=== PATIENT | female | born 1955 | race Caucasian/White ===

== ENCOUNTER 2021-12-10 10:01 | Outpatient (REF) | payer MEDICARE, MEDICAID, SELFPAY ==
[2021-12-10 11:26] LABS: Hematocrit 39.7 % (37.0-47.0); Hemoglobin 12.8 g/dl (12.0-16.0); Mean Corpuscular HGB Conc 32.2 g/dl (31.0-35.0); Mean Corpuscular Hemoglobin 28.4 pg (27.0-33.0); Mean Platelet Volume 11.5 fL (9.4-12.3); Platelet Count 197 X10*3/uL (160-400); Red Blood Count 4.51 X10*6/uL (4.20-5.50); Red Cell Distribution Width 12.3 % (11.0-16.0)
[2021-12-10 12:22] LABS: Alanine Aminotransferase 14 U/L (0-31); Albumin Level 4.1 g/dL (3.5-5.0); Alkaline Phosphatase 73 U/L (39-117); Anion Gap 14 (12-20); Aspartate Amino Transferase 17 U/L (5-31); Bilirubin Total 0.4 mg/dL (0.0-1.0); Blood Urea Nitrogen 17 mg/dL (9-16); Carbon Dioxide 30 mmol/L (22-29); Chloride 99 mmol/L (96-108); Cholesterol 281 mg/dL; Estimated Glomerular Filt Rate > 60; Glucose Fasting 89 mg/dL (60-99); HDL Cholesterol 62 mg/dL; LDL Cholesterol Calculated 180 mg/dl; Potassium 4.5 mmol/L (3.3-5.1); Sodium 138 mmol/L (135-145); Total Protein 6.5 g/dL (6.5-8.0); Triglycerides 197 mg/dL
[2021-12-10 12:51] LABS: TSH reflex Free T4 2.09 uIU/mL (0.32-4.0)
== END 2021-12-10 10:02 | disposition home or self-care (01) ==
LOC: HO.WFDLDS 10:01
PROVIDERS: Visit Provider Hospitalist
DX: Z00.00 Encounter for general adult medical examination without abnormal findings (principal); Z79.899 Other long term (current) drug therapy
CPT/HCPCS: 36415; 80053; 80061; 84443; 85027

== ENCOUNTER 2022-04-03 14:12 | Outpatient (REF) | payer MEDICARE, MEDICAID, SELFPAY ==
--- NOTE | ~2022-04-03 | XR_ITS ---
EXAMINATION: 1. RADIOGRAPHS PELVIS 2. RADIOGRAPHS SACRUM/COCCYX CLINICAL INFORMATION: Pain COMPARISON: Sacral x-rays May 19, 2018 TECHNIQUE: Frontal view of the pelvis and 2 views of the sacrum/coccyx were obtained. FINDINGS: Pelvic ring is intact. There is no gross fracture of the sacrum or coccyx. Sacroiliac joints are symmetric. Visualized portion of the lower lumbar spine demonstrate degenerative changes with mild anterolisthesis of L4 on L5. There are degenerative changes of both hips without fracture or dislocation. Small pelvic calcifications are likely vascular in nature. XR/XR pelvis 1-2V IMPRESSION: No gross abnormality of the pelvis or sacrum/coccyx.
--- NOTE | ~2022-04-03 | CT_ITS ---
EXAMINATION: CT CHEST SCREENING CLINICAL INFORMATION: History of nicotine dependence. 55 pack-year history of smoking. Quit smoking one year ago. COMPARISON: Chest x-ray of 05/25/2019. TECHNIQUE: Multidetector volumetric CT imaging of the chest is performed without contrast using low dose technique. Additional 2D coronal and sagittal reformatted images and axial 3D maximum intensity projection (MIP) images are generated on the CT workstation. This CT examination was performed using dose optimization techniques as appropriate, variously including the following: *Automated exposure control *Adjustment of mA and/or kV according to patient size (this includes techniques or standardized protocols for targeted exams where dose is matched to indication/reason for exam; i.e. extremities or head) *Use of iterative reconstruction technique DLP: 187 mGy-cm FINDINGS: LUNGS: Central airways are patent. No bronchial wall thickening is appreciated. No bronchiectasis. No confluent parenchymal disease. There are mild changes of centrilobular emphysema seen within the upper lobes bilaterally. Multiple sub-4 mm densities are present. Calcified granulomas present. A few small intrafissural lymph nodes are seen. There is a 7 x 2 x 3 mm noncalcified density adjacent to the right hemidiaphragm on image [address] series #5. There are a few other tubular densities present likely representing mucus within bronchial branches. There is a 4 mm noncalcified nodule seen within the anterior aspect of the left lower lobe on image 370 of 548 in series #5. There is a 4 mm noncalcified nodule seen within the left lower lobe on image 389 of 548. There is a 4 mm noncalcified density seen within the left lower lobe on image 410 of 548. MEDIASTINUM: There is a 2 cm left thyroid nodule. Heart normal size. No pericardial effusion. There is some calcified plaque present within the left coronary artery. No thoracic aortic aneurysm. Minimal aortic arch nonobstructive calcified plaque is noted. No mediastinal or hilar lymphadenopathy identified. CORONARY ARTERY CALCIFICATION: Small amount of coronary artery calcification present. PLEURA: There is no pleural effusion. No pleural mass or thickening. AXILLA: No lymphadenopathy. UPPER ABDOMEN: Unremarkable. OSSEOUS STRUCTURES: No suspicious destructive bony lesion identified. There is multilevel degenerative disc disease. CT/CT lung screening IMPRESSION: 2 cm left thyroid nodule. Old granulomatous disease. Multiple lung densities largest of which measures 7 x 2 x 3 mm in size. ASSESSMENT: Lung-RADS category 3: Probably Benign. RECOMMENDATION: Short interval 6 month follow up low dose CT chest.
--- NOTE | ~2022-04-03 | XR_ITS ---
EXAMINATION: 1. RADIOGRAPHS PELVIS 2. RADIOGRAPHS SACRUM/COCCYX CLINICAL INFORMATION: Pain COMPARISON: Sacral x-rays May 19, 2018 TECHNIQUE: Frontal view of the pelvis and 2 views of the sacrum/coccyx were obtained. FINDINGS: Pelvic ring is intact. There is no gross fracture of the sacrum or coccyx. Sacroiliac joints are symmetric. Visualized portion of the lower lumbar spine demonstrate degenerative changes with mild anterolisthesis of L4 on L5. There are degenerative changes of both hips without fracture or dislocation. Small pelvic calcifications are likely vascular in nature. XR/XR sacrum coccyx min 2V IMPRESSION: No gross abnormality of the pelvis or sacrum/coccyx.
== END 2022-04-03 14:13 | disposition home or self-care (01) ==
LOC: HO.CT 14:12
PROVIDERS: PCP Hospitalist; Visit Provider Physician Assistant Medical
DX: Z12.2 Encounter for screening for malignant neoplasm of respiratory organs (principal); Z87.891 Personal history of nicotine dependence; R10.2 Pelvic and perineal pain; M53.3 Sacrococcygeal disorders, not elsewhere classified
CPT/HCPCS: 71271; 72170; 72220; G0296

== ENCOUNTER → 2022-04-06 15:20 | Outpatient (BNVA) | payer MEDICARE, MEDICAID, SELFPAY | PROVIDERS: PCP Hospitalist; Visit Provider Anesthesiology | DX: M53.3 Sacrococcygeal disorders, not elsewhere classified (principal); G89.29 Other chronic pain; R10.2 Pelvic and perineal pain | CPT/HCPCS: 99202 ==

== ENCOUNTER 2022-05-04 10:35 | Outpatient (REF) | payer MEDICARE, MEDICAID, SELFPAY ==
[2022-05-04 14:43] LABS: Amphetamine Screen Urine Not Detected (Not Detect); Barbiturates, Urine Not Detected (Not Detect); Benzodiazepines Screen Urine Not Detected (Not Detect); Cannabinoid Screen Urine Not Detected (Not Detect); Cocaine Screen Urine Not Detected (Not Detect); Fentanyl, urine Not Detected (Not Detect); Opiate Screen Urine Not Detected (Not Detect); Phencyclidine Screen Urine Not Detected (Not Detect)
== END 2022-05-04 10:36 | disposition home or self-care (01) ==
LOC: HO.WFDLNP 10:35
PROVIDERS: Visit Provider Hospitalist
DX: R10.2 Pelvic and perineal pain (principal); G89.29 Other chronic pain; M53.3 Sacrococcygeal disorders, not elsewhere classified; Z79.891 Long term (current) use of opiate analgesic
CPT/HCPCS: 80307

== ENCOUNTER 2022-08-21 06:23 | Day surgery (SDC) | payer MEDICARE, MEDICAID, SELFPAY ==
[2022-08-14 15:28] VITALS: BMI 25.5
--- NOTE | ~2022-08-21 | FL_ITS ---
EXAMINATION: XR FLUOROSCOPY WITH IMAGES CLINICAL INFORMATION: Low back pain. COMPARISON: None. TECHNIQUE: Fluoroscopy Supervised By: Dr. Frantz Lynn Fluoroscopy Time: 2.8 minutes. Cumulative Dose: 61.2 mGy. DAP: 14.7 Gycm2. Images: 3. FINDINGS: There are 3 digital images obtained in the OR. There is grade 1 anterolisthesis L4 over L5. The last image reveals posterior epidural neuroelectrodes centered at L3, L4 and L5 vertebra. FL/FL guidance in OR IMPRESSION: Grade 1 anterolisthesis L4 over L5. There are newly inserted posterior epidural neuroelectrodes at the L3, L4 and L5 vertebra.
[2022-08-21 06:29] VITALS: BP 116/53; PULSE 65; RESP 18; TEMP 36.8; O2SAT 99
--- NOTE | 2022-08-21 07:02 | MHC.SHP ---
Pre-Procedural Eval Section A Date of Service: 08/21/22 The patient is an INPATIENT: No Changes since office visit: Yes Patient answered all questions The History & Physical has been completed within 30 days and I have reviewed it.: No Section B Chief Complaint: Sacrococcygeal disorders, Pelvic and perineal pain Relevant Family History (Specify if Yes): No Relevant Social History: None Present Medications: None Medical History: No relevant PMH History of Previous Operations: No relevant previous surgery Allergies: Allergies Allergy/AdvReac Type Severity Reaction Status Date / Time aripiprazole [From ABILIFY] Allergy Intermediate SHAKING Verified 08/14/22 15:18 bupropion [From WELLBUTRIN] Allergy Intermediate SHAKING, Verified 08/14/22 15:18 WEAKNESS atypical antipsychotics Allergy Intermediate SHAKING/FEET Uncoded 08/14/22 15:20 SWELLING Review of Systems Sugical H&P ROS: Negative: Constitution, Cardiovascular, Respiratory, Neurological, Psychiatric, Hem-Onc, Allergic/Immunologic, Gastrointestinal, Genitourinary, Musculoskeletal, Integumentary, Endocrine and Eyes/Ears/Nose/Throat Exam Surgical H&P Exam: Normal: HEENT, Normal: Heart, Normal: Lungs, Normal: Extremities, Normal: Abdomen, Normal: Skin and Normal: Neurological Plan Diagnosis/Plan: Unchanged I have reviewed the history and physical and performed a pertinent physical examination on my patient. No changes have occurred unless specified. Time Spent With Patient Time: Total time managing care of this patient today ____ minutes.
[2022-08-21] MEDS: Lactated Ringers 1,000 ML 50 ML IVCONT (07:09)
--- NOTE | 2022-08-21 07:16 | PC.NURSE ---
no mrsa screen nedded per dr horowitz
--- NOTE | 2022-08-21 09:01 | HO.ANESPROP2 ---
HPI - Anesthesia Eval Consult details Narrative: 67 yr old for SCEfor coccydynia PMFSH Active Problems Active Problems: All Active Problems (Updated 05/20/22 @ 11:23 by Gay Stewart NP) Cellulitis of hand, right (Acute) Bee sting reaction (Acute) HTN, goal below 130/80 (Acute) Left thyroid nodule (Acute) Advance directive discussed with patient (Acute) Chronic pelvic pain in female (Acute) Coccydynia (Acute) Vapes nicotine containing substance (Acute) Personal history of nicotine dependence (Acute) High cholesterol (Acute) Anxiety and depression (Acute) Hypertension, essential (Acute) Essential tremor (Acute) Lumbago of lumbar region with sciatica (Acute) Primary generalized (osteo)arthritis (Acute) Chronic GERD (Acute) Coccyx pain (Acute) Past Medical History Medical History Anxiety and depression High cholesterol Hypertension, essential Personal history of nicotine dependence Family History Family History Father No problems noted. Mother No problems noted. Family history of problems with anesthesia: No Surgical History Surgical History History of ankle surgery History of removal of cyst History of tonsillectomy History of Problems with Anesthesia: No Social History Social History Household Members Other:: roomate Housing: Apartment Alcohol intake: never Patient Tobacco Use Status: Former Tobacco user Years Smoked: (onset 11yo, smoked for 30yrs at 1ppd, 30pyh - quit 2020 using vape e-Cigarette/Vaping Use: Currently Using Are you DNR?: No Advance Directives: No Advance Directives Information Provided: Yes Recently lost weight without trying: No Nutrition Risks: No Nutritional Risk service: No Current occupational exposures/hazards: No Meds Allergies Allergy/AdvReac Type Severity Reaction Status Date / Time aripiprazole [From ABILIFY] Allergy Intermediate SHAKING Verified 08/14/22 15:18 bupropion [From WELLBUTRIN] Allergy Intermediate SHAKING, Verified 08/14/22 15:18 WEAKNESS atypical antipsychotics Allergy Intermediate SHAKING/FEET Uncoded 08/14/22 15:20 SWELLING Active Medications: Current Medications Lactated Ringer's (Lr) 1,000 mls @ 50 mls/hr IVCONT .Q20H LUIS Last Admin: 08/21/22 07:09 Dose: 50 mls/hr Exam Exam Date and Time: August 21, 2022 0901 Height,Weight and Vital Signs: Height 5 ft Weight 59.421 kg Last Vital Signs Temp 98.3 F 08/21/22 06:29 Pulse 65 08/21/22 06:29 Resp 18 08/21/22 06:29 BP 116/53 L 08/21/22 06:29 Pulse Ox 99 08/21/22 06:29 O2 Del Method 08/21/22 06:29 Airway Mallampati Class: II TM Dist: >3cm Heart: rrr Lungs: cta Assessment and Plan Assessment Anesthesia Assessment: Anesthesia Plan Discussed and Chart Reviewed Final Anesthetic Review Family History of Problems with Anesthesia: No History of Problems with Anesthesia: No NPO: Yes Final Preanesthetic Review: No Changes in Pt Med Stat, Meds/Allgs Chart Reviewed, Consent Obtained/Reviewed and Anes Risks/Benef Reviewed Patient Risk: Low Procedure Risk: Low Anesthetic Plan Anesthetic Plan: MAC: and Agree w/ Assess. and Plan Disposition: Standard PACU
[2022-08-21 09:25] VITALS: BP 150/82; PULSE 60; RESP 17; TEMP 36.3; O2SAT 100
--- NOTE | 2022-08-21 09:32 | P.BOP_ITS ---
Brief Operative Note Date of Service: 08/21/22 Pre-op diagnosis: coccydynia Post-op diagnosis: same Procedure: trial of [employer] Spinal Cord Stimulator. Implants: none permanent Surgeon: Frantz Lynn MD Anesthesia: MAC Was an Structural Steel Shop Supervisor used for this Procedure?: No Estimated blood loss (mL): 2 Condition: stable Disposition: PACU
--- NOTE | 2022-08-21 09:38 | P.OP_ITS ---
Operative Note Operative Note Date of Service: 08/21/22 Narrative: TRial of [employer] SCS lumbar position. Ping is a very pleasant 67 y.o. female who came today into the operating room for trial of spinal cord stimulator [employer] for the treatment of coccydynia. Preoperatively patient received cefazolin 2 g approximately 10 minutes before the procedure. After obtaining informed consent the patient was brought to the operating room, She was positioned prone on operating table, [employer] [place] [employer] monitors were applied and the patient was moderately sedated. Time-out was performed delineating correct site, side, the nature of the p rocedure, patient's allergy, preoperative antibiotic if needed. All operating room staff was participating in OR time-out procedure. Patient's entire back was prepped with Chloraprep twice and draped with full body fenestrated laparoscopy drape. Sterilely draped C-arm was brought over operating field and square picture of the L3- L4- L5 vertebrae and sacral bone were demonstrated on the screen. Attention FIRST was concentrated on the L4-l5 epidural interspace. The location of the projection of the right pedicle center of the S1 vertebra was found on the skin using C-arm. This location was injected with mixture of lidocaine 2% and Marcaine 0.5% - 5 cc. After that 11 blade was used to make a cayden on the skin. 10 cm 14 gauge introducer epidural needle was inserted through the cayden and advanced to L4-L5 epidural interspace. The advancement of the needle was performed on anterior posterior and lateral views. Loss of resistance to air technique were used to locate epidural space., epidural lead was inserted through the needle and it was attempted to advanced in retrograde direction toward the caudal canal. The lead met resistance at L5- S1 area most likely due to the epidural adhesions. Blue sheeth introducer was used in the attemt to overcome the resistance without significant success of the lead advancement. Two more attempts were made to the level L4-5 and L3- L4 to advance the lead in retrograde fashion now on the left with the needle directing caudad however it did not brng any success - epidural space was reached uneventfully but advancement of the lead beyond lower 1/3 of the L5 vertebra met very significant resistance. The decision was made to insert the epidural lead in the posterior epidural space anterograde in the cephalad direction from L5- S1 interspace. The location of the projection of the right sacral bone lamina 3 cm below the upper level of the lamina was injected with lidocaine 2% and Marcaine 0.5% 5 cc. After that 11 blade was used to make a cayden on the skin. 10 cm 14 gauge introducer epidural needle was inserted through the cayden and advanced to L5-S1 epidural interspace under intermittent AP and lateral views using KEN syringe to detect epidural space. The advancement of the needle was performed on anterior posterior and lateral views. Guitar wire and loss of resistance to air technique were used to locate epidural space. When guitar wire was spread in the epidural fashion, epidural lead was inserted through the needle and advanced in the epidural space to the the center of the L3 vertebra projection slightly left of the midline in AP projection and in the posterior epidural space in lateral projection. After that the location of the projection of the leftsacral bone lamina 3 cm below the upper level of the lamina was injected with lidocaine 2% and Marcaine 0.5% 5 cc. After that 11 blade was used to make a cayden on the skin. 10 cm 14 gauge introducer epidural needle was inserted through the cayden and advanced to L5-S1 epidural interspace under intermittent AP and lateral views using KEN syringe to detect epidural space. The advancement of the needle was performed on anterior posterior and lateral views. Guitar wire and loss of resistance to air technique were used to locate epidural space. When guitar wire was spread in the epidural fashion, epidural lead was inserted through the needle and advanced in the epidural space to the the center of the L3 vertebra projection slightly right to the existing electrode of the midline in AP projection and in the posterior epidural space in lateral projection. Impedance was checked and was satisfactory . Posterior lead placement was verified by lateral x-ray The needles were withdrawn, the stylette wires were removed from the epidural leads. The anchoring devices were dislodged on the leads and advanced to the level of the skin. The anchoring devices were sutured with two 0-0 Silk sutures per each anchor to the skin of the patient. The central fixation screw of each anchor was rotated until three clicks were heard. The leads were connected to testing device. steri-strips were placed on the three previous unsussesful attemts needle insertion sites. Bacitracin ointment was applied to the entrance point of bilateral wires. Sterile dressing was applied to the patient's back. The testing device was also taped to the patient's back. the patient tolerated procedure well she was awaken and taken outside of the operating room to recovery room. she recovered uneventfully.
[2022-08-21 09:40] VITALS: BP 138/78; PULSE 60; RESP 18; O2SAT 100
[2022-08-21 09:55] VITALS: BP 132/56; PULSE 69; RESP 18; TEMP 36.7; O2SAT 100
== END 2022-08-21 10:33 | disposition home or self-care (01) ==
PROVIDERS: PCP Hospitalist; Visit Provider Anesthesiology
PROC: (CPT 63650; principal; 2022-08-21 07:30)
DX: M53.3 Sacrococcygeal disorders, not elsewhere classified (principal); R10.2 Pelvic and perineal pain; G89.29 Other chronic pain; G25.0 Essential tremor; I10 Essential (primary) hypertension; E78.00 Pure hypercholesterolemia, unspecified; F41.8 Other specified anxiety disorders; Z79.1 Long term (current) use of non-steroidal anti-inflammatories (NSAID); Z79.52 Long term (current) use of systemic steroids; Z79.899 Other long term (current) drug therapy; Z88.8 Allergy status to other drugs, medicaments and biological substances; F17.290 Nicotine dependence, other tobacco product, uncomplicated
CPT/HCPCS: 63650 ×2; C1713; C1778; J0131; J0690; J2250; J2795

== ENCOUNTER → 2022-08-27 10:14 | Outpatient (BNVA) | payer MEDICARE, MEDICAID, SELFPAY | PROVIDERS: PCP Hospitalist; Visit Provider Anesthesiology | DX: M53.3 Sacrococcygeal disorders, not elsewhere classified (principal); R10.2 Pelvic and perineal pain; G89.29 Other chronic pain | CPT/HCPCS: 99212 ==

== ENCOUNTER 2022-09-11 09:08 | Day surgery (SDC) | payer MEDICARE, MEDICAID, SELFPAY ==
[2022-09-11] VITALS (10 sets, daily range): BP systolic 98–192; BP diastolic 59–92; PULSE 60–74; RESP 14–20; TEMP 36.2–36.4; O2SAT 94–98; BMI 23.1
--- NOTE | ~2022-09-11 | FL_ITS ---
EXAMINATION: XR FLUOROSCOPY WITH IMAGES CLINICAL INFORMATION: Lumbar stimulator implant. COMPARISON: Fluoroscopic spot views lumbar spine 08/21/2022. TECHNIQUE: Fluoroscopy Supervised By: Dr. Frantz Lynn. Fluoroscopy Time: 0.7 minutes. Cumulative Dose: 10.5 mGy. DAP: 2.76 Gycm2. Images: 4. FINDINGS: There are 2 spinal stimulator electrodes seen ascending the posterior spinal canal. The electrode tips are at level of L3-L4. There is no visible kinking or defect of the leads. There are degenerative changes lumbar spine with vertebral spurring. FL/FL guidance in OR IMPRESSION: Fluoroscopy for pain management procedure.
--- NOTE | 2022-09-11 10:55 | MHC.SHP ---
Pre-Procedural Eval Section A Date of Service: 09/11/22 The patient is an INPATIENT: No Changes since office visit: Yes Patient answered all questions The History & Physical has been completed within 30 days and I have reviewed it.: No Section B Chief Complaint: Pelvic and perineal pain,Other chronic pain Details of Present Illness: as above Relevant Family History (Specify if Yes): No Relevant Social History: None Present Medications: None Medical History: No relevant PMH History of Previous Operations: No relevant previous surgery Allergies: Allergies Allergy/AdvReac Type Severity Reaction Status Date / Time aripiprazole [From ABILIFY] Allergy Intermediate SHAKING Verified 09/09/22 13:23 bupropion [From WELLBUTRIN] Allergy Intermediate SHAKING, Verified 09/09/22 13:23 WEAKNESS atypical antipsychotics Allergy Intermediate SHAKING/FEET Uncoded 09/09/22 13:23 SWELLING Review of Systems Sugical H&P ROS: Negative: Constitution, Cardiovascular, Respiratory, Neurological, Psychiatric, Hem-Onc, Allergic/Immunologic, Gastrointestinal, Genitourinary, Musculoskeletal, Integumentary, Endocrine and Eyes/Ears/Nose/Throat Exam Surgical H&P Exam: Normal: HEENT, Normal: Heart, Normal: Lungs, Normal: Extremities, Normal: Abdomen, Normal: Skin and Normal: Neurological Plan Diagnosis/Plan: Unchanged I have reviewed the history and physical and performed a pertinent physical examination on my patient. No changes have occurred unless specified. Time Spent With Patient Time: Total time managing care of this patient today ____ minutes.
--- NOTE | 2022-09-11 11:22 | HO.ANESPROP2 ---
HPI - Anesthesia Eval Consult details Narrative: chronic pain PMFSH Active Problems Active Problems: All Active Problems (Updated 09/09/22 @ 13:36 by Gay Stewart NP) HTN, goal below 140/90 (Acute) Cellulitis of hand, right (Acute) Bee sting reaction (Acute) HTN, goal below 130/80 (Acute) Left thyroid nodule (Acute) Advance directive discussed with patient (Acute) Chronic pelvic pain in female (Acute) Coccydynia (Acute) Vapes nicotine containing substance (Acute) Personal history of nicotine dependence (Acute) High cholesterol (Acute) Anxiety and depression (Acute) Hypertension, essential (Acute) Essential tremor (Acute) Lumbago of lumbar region with sciatica (Acute) Primary generalized (osteo)arthritis (Acute) Chronic GERD (Acute) Coccyx pain (Acute) Past Medical History Medical History Anxiety and depression High cholesterol Hypertension, essential Personal history of nicotine dependence Family History Family History Father No problems noted. Mother No problems noted. Family history of problems with anesthesia: No Surgical History Surgical History History of ankle surgery History of removal of cyst History of tonsillectomy History of Problems with Anesthesia: No Social History Social History Household Members Other:: roomate Housing: Apartment Alcohol intake: never Patient Tobacco Use Status: Former Tobacco user Quit Date: 2020 Years Smoked: (onset 11yo, smoked for 30yrs at 1ppd, 30pyh - quit 2019 using vape e-Cigarette/Vaping Use: Currently Using Use of substances other than those prescribed or required for medical reasons: No Are you DNR?: No Advance Directives: No Advance Directives Information Provided: Yes service: No Current occupational exposures/hazards: No Meds Allergies Allergy/AdvReac Type Severity Reaction Status Date / Time aripiprazole [From ABILIFY] Allergy Intermediate SHAKING Verified 09/09/22 13:23 bupropion [From WELLBUTRIN] Allergy Intermediate SHAKING, Verified 09/09/22 13:23 WEAKNESS atypical antipsychotics Allergy Intermediate SHAKING/FEET Uncoded 09/09/22 13:23 SWELLING Exam Exam Date and Time: September 11, 2022 1122 Height,Weight and Vital Signs: Height 5 ft 4 in Weight 61.235 kg Last Vital Signs Temp 97.6 F 09/11/22 10:11 Pulse 62 09/11/22 10:11 Resp 18 09/11/22 10:11 BP 98/59 L 09/11/22 10:11 Pulse Ox 94 09/11/22 10:11 O2 Del Method 09/11/22 10:11 Airway Mallampati Class: II Neck ROM: Full Denture: Upper and Lower Heart: Rr Lungs: CTA Assessment and Plan Final Anesthetic Review Family History of Problems with Anesthesia: No History of Problems with Anesthesia: No ASA Class: II Final Preanesthetic Review: No Changes in Pt Med Stat, Meds/Allgs Chart Reviewed, Consent Obtained/Reviewed and Anes Risks/Benef Reviewed Patient Risk: Low Procedure Risk: Low Anesthetic Plan Anesthetic Plan: MAC: Disposition: Standard PACU
[2022-09-11] MEDS: Lactated Ringers 1,000 ML 100 ML IVCONT (11:25)
[2022-09-11 11:53] LABS: MRSA Nasal PCR NEGATIVE (Negative); SA Nasal PCR NEGATIVE (Negative)
--- NOTE | 2022-09-11 14:35 | PM.OP ---
Brief Operative Note Date of Service: 09/11/22 Pre-op diagnosis: coccydynia. pelvic floor pain Post-op diagnosis: same Procedure: [employer] SCS implant lumbar position. Implants: implantation of nina battery [employer] SCS and 2 epidural leads. Surgeon: Frantz Lynn MD Anesthesia: MAC Was an [employer]ure Press Operator used for this Procedure?: No Estimated blood loss (mL): 19 Pathology: other (lipoma from the buttock wound) Condition: stable Disposition: PACU
--- NOTE | 2022-09-11 14:38 | P.OP_ITS ---
Operative Note Operative Note Date of Service: 09/11/22 Narrative: Implantation of [place] [employer] SCS lumbar position. Ping is a very pleasant 67 y.o. female who came today into the operating room for implantationl of spinal cord stimulator [employer] [employer] for the treatment of coccydynia. Preoperatively patient received cefazolin 2 g approximately 20 minutes before the procedure. After obtaining informed consent the patient was brought to the operating room, She was positioned prone on operating table, [employer] monitors were applied and the patient was moderately to deeply sedated. Time-out was performed delineating correct site, side, the nature of the procedure, patient's allergy, preoperative antibiotic if needed. All operating room staff was participating in OR time-out procedure. Patient's entire back was prepped with Chloraprep twice and draped with full body fenestrated laparoscopy drape including ioban film. Sterilely draped C-arm was brought over operating field and square picture of the L3- L4- L5 vertebrae and sacral bone were demonstrated on the screen. Attention FIRST was on the right side of L5-S1 epidural interspace. The location of the projection of the the S1 and S2 sacral foramina on the right was injected with mixture of lidocaine 2% and Marcaine 0.5% - 9 cc. After that 10 blade was used to make a verical 5 cm incision. it was widened and deepened using dull disection with Ahsananer retractor and hemostasis was achieved using electrocautery. The prevertebral fascia was freed from overlaying fat tissues. Sterily draped C arm was brought over the operating field and 10 cm 14 gauge introducer epidural needle was inserted in the upper angle of the wound and advanced to right side of the L5-S1 epidural interspace under AP and lateral view toward epidural interspace. Loss of resistance to air technique were used to locate epidural space, guitar wire was inserted when the epidural space was detected and it was spreading in the epidural fashion. After that epidural lead was inserted through the needle and it was advanced in strictly posterior epidural space under AP and lateral view until the tip of the lead reached the upper border of the L4 vertebra on the image slightly right to the projection of the projection of the L4 spinous process.. After that the attention was directed to the left side of the sacral bone where in the projection of the S1 and S2 foramina, where the skin was injected with local anesthetic mixture same as above. 10 blade was used to make a verical 5 cm incision. it was widened and deepened using dull disection with Weitlaner retractor and hemostasis was achieved using electrocautery. The prevertebral fascia was freed from overlaying fat tissues. 10 cm 14 gauge introducer epidural needle was inserted in the upper angle of the wound and advanced to the left side of the L5-S1 epidural interspace under AP and lateral view toward epidural interspace. Loss of resistance to air technique were used to locate epidural space, guitar wire was inserted when the epidural space was detected and it was spreading in the epidural fashion. After that epidural lead was inserted through the needle and it was advanced in strictly posterior epidural space under AP and lateral view until the tip of the lead reached the upper border of the L4 vertebra on the image slightly left to the L4 spinous process. Both leads were demonstrated to be located strictly in the posterior epidural space. anchoring devises were dislodged over the epidural leads until they went into the contact with the fascia. Using 1-0 tycrone sutires they were affixed to the underlying fascia. After that the fixating anchoring screws were tightened until the three clicks were heard. Irrigation of the wounds was done with saline mixed with vancomycin, the wounds were packed with 4x4 soaked with the same saline mixture. After that attention was concentrated on the right upper buttock where the patient wanted the battery to be implanted. 3 cm below the projection of the most superior portion of the iliac crest the 8 cm incision was made after injection of the local anesthetic mixture as above. The wound was widened and deepened until 2 cm deep and small lipoma was discovered in the tissues. It was removed and sent to the pathology for examination. After that using dull disection and electrocautery the pocket for the battery was made going caudad from the incision. Thorough hemostasis was obtained and irrigation was performed of the all three wounds using normal saline with addition of vancomycin. After that epidural lead from the left wound was tunneled to the right wound using epidural needle and after that the tunneling device was used to tunnel the both leads together into the side pocket wound. [employer] battery was sterilely obtained and brought to the operating field and the epidural leads ends were connected to the battery, Impedance was checked and was satisfactory . The patient was awaken and stimulation was applied. the patient reported the stimulation field corresponding to her pelvic pain. After that the patient was re- sedated, the wounds were irrigated again and two anchoring sutures Tychrone 1-0 were applied to the most superior medial and most superior lateral corners of the pocket wound. The sutures were connected to the orifices on the alpha battery, the epidural leads were gathered behind the body of the battery and the device along with the epidural leads was dislodged into the pocket wound. The anchoring sutures were tightened and the wound was irrigated again. After that all three wounds were checked for hemostasis, irrigated for the last time and all three wounds were closed using 0-0 polysorb sutures, the skin edges of the wounds were approximated using 0-2 polysorb sutures, and albina were applied to the skin. Bacitracin ointment was applied to the suture lines. Sterile dressing was applied to the patient's back. The patient tolerated the procedure well, she was awaken and transfered stable to PACU.
--- NOTE | 2022-09-11 14:41 | HO.ANESPROP2 ---
HPI - Anesthesia Eval Consult details Narrative: chronic pain lumbar lumbago PMFSH Active Problems Active Problems: All Active Problems (Updated 09/09/22 @ 13:36 by Gay Stewart NP) HTN, goal below 140/90 (Acute) Cellulitis of hand, right (Acute) Bee sting reaction (Acute) HTN, goal below 130/80 (Acute) Left thyroid nodule (Acute) Advance directive discussed with patient (Acute) Chronic pelvic pain in female (Acute) Coccydynia (Acute) Vapes nicotine containing substance (Acute) Personal history of nicotine dependence (Acute) High cholesterol (Acute) Anxiety and depression (Acute) Hypertension, essential (Acute) Essential tremor (Acute) Lumbago of lumbar region with sciatica (Acute) Primary generalized (osteo)arthritis (Acute) Chronic GERD (Acute) Coccyx pain (Acute) Past Medical History Medical History Anxiety and depression High cholesterol Hypertension, essential Personal history of nicotine dependence Family History Family History Father No problems noted. Mother No problems noted. Family history of problems with anesthesia: No Surgical History Surgical History History of ankle surgery History of removal of cyst History of tonsillectomy History of Problems with Anesthesia: No Social History Social History Household Members Other:: roomate Housing: Apartment Alcohol intake: never Patient Tobacco Use Status: Former Tobacco user Quit Date: 2020 Years Smoked: (onset 11yo, smoked for 30yrs at 1ppd, 30pyh - quit 2019 using vape e-Cigarette/Vaping Use: Currently Using Use of substances other than those prescribed or required for medical reasons: No Are you DNR?: No Advance Directives: No Advance Directives Information Provided: Yes service: No Current occupational exposures/hazards: No Meds Allergies Allergy/AdvReac Type Severity Reaction Status Date / Time aripiprazole [From ABILIFY] Allergy Intermediate SHAKING Verified 09/09/22 13:23 bupropion [From WELLBUTRIN] Allergy Intermediate SHAKING, Verified 09/09/22 13:23 WEAKNESS atypical antipsychotics Allergy Intermediate SHAKING/FEET Uncoded 02/22/23 13:23 SWELLING Active Medications: Current Medications Fentanyl (Fentanyl Citrate/Pf 100 Mcg/2 Ml Vial) 25 mcg IVPUSH Q5M PRN; Protocol PRN Reason: Pain, Moderate (Pain Scale 4-6 Lactated Ringer's (Lr) 1,000 mls @ 100 mls/hr IVCONT .Q10H COUNTS INCLUDE 234 BEDS AT THE [facility] Last Admin: 09/11/22 11:25 Dose: 100 mls/hr Sodium Chloride (Ns) 500 mls @ 20 mls/hr IVCONT .Q24H COUNTS INCLUDE 234 BEDS AT THE [facility] Exam Exam Date and Time: September 11, 2022 1441 Height,Weight and Vital Signs: Height 5 ft 4 in Weight 61.235 kg Last Vital Signs Temp 97.6 F 09/11/22 10:11 Pulse 62 09/11/22 10:11 Resp 18 09/11/22 10:11 BP 98/59 L 09/11/22 10:11 Pulse Ox 94 09/11/22 10:11 O2 Del Method 09/11/22 10:11 Pertinent Lab Results Pertinent Lab Results: Laboratory Tests 09/11/22 10:30 Nasal Screen MRSA (PCR) NEGATIVE Nasal S. aureus Screen NEGATIVE Nasal MRSA/S.aureus Interp SEE NOTE Airway Mallampati Class: II TM Dist: >3cm Neck ROM: Full Denture: Upper and Lower Heart: rr Lungs: cta Assessment and Plan Final Anesthetic Review Family History of Problems with Anesthesia: No History of Problems with Anesthesia: No NPO: Yes ASA Class: II Final Preanesthetic Review: No Changes in Pt Med Stat, Meds/Allgs Chart Reviewed, Consent Obtained/Reviewed and Anes Risks/Benef Reviewed Patient Risk: Low Anesthetic Plan Anesthetic Plan: MAC: Disposition: Standard PACU
[2022-09-11] MEDS: fentaNYL citrate/PF 100 MCG/2 ML VIAL 25 MCG IVPUSH ×2 (14:53→14:58)
[2022-09-11] MEDS: oxyCODONE HCl Immed Release 5 MG TABLET PO (15:42)
[2022-09-11] MEDS: ondansetron HCL 4 MG/2 ML VIAL IVPUSH (15:42)
== END 2022-09-11 16:31 | disposition home or self-care (01) ==
PROVIDERS: Nurse Practitioner Family; PCP Hospitalist; Visit Provider Anesthesiology
PROC: (CPT 63685; principal; 2022-09-11 10:10)
DX: M53.3 Sacrococcygeal disorders, not elsewhere classified (principal); R10.2 Pelvic and perineal pain; G89.29 Other chronic pain; D17.1 Benign lipomatous neoplasm of skin and subcutaneous tissue of trunk; E78.00 Pure hypercholesterolemia, unspecified; F41.8 Other specified anxiety disorders; Z79.1 Long term (current) use of non-steroidal anti-inflammatories (NSAID); Z79.899 Other long term (current) drug therapy; Z88.8 Allergy status to other drugs, medicaments and biological substances; I10 Essential (primary) hypertension; F17.290 Nicotine dependence, other tobacco product, uncomplicated
CPT/HCPCS: 63685; 63650 ×2; 87640; 87641; 88304; C1713; C1778; C1787; C1820; J0690; J2250; J2405; J2795; J3010; J3370

== ENCOUNTER 2022-09-15 11:19 | Emergency (ER) | payer MEDICARE, MEDICAID, SELFPAY ==
[2022-09-15 11:23] VITALS: BP 148/90
[2022-09-15 11:24] VITALS: BP 113/68; PULSE 53; RESP 18; TEMP 36.6; O2SAT 98; BMI 23.0
--- NOTE | 2022-09-15 11:24 | ED.DIZZY ---
HPI - Dizziness General Chief Complaint: General Medical Stated Complaint: htn, 148/90 Time Seen by Provider: 09/15/22 12:11 Source: patient and EMS Mode of arrival: EMS History of Present Illness HPI Narrative: 67-year-old female with PMHx anxiety, depression, HTN, on Valsartan & Clonidine s/p implantation of spinal cord stimulation on 09/11/22 at [facility] c/o intermittent elevated BP's at home with associated lightheadedness x1 month. Admits BP was 222/119 [employer]. Reports taking her valsartan today, denies taking her Clonidine. Admits has been ignoring symptoms as thought it was related to her anxiety. Denies headache, vision loss, CP/SOB, abdominal pain, nausea/vomiting, paresthesias. Denies taking AC MD elicited complaint: lightheadedness Related Data Home Medications Medication Instructions Recorded Confirmed valsartan 160 mg tablet 160 mg PO DAILY 09/18/22 Previous Rx's Medication Instructions Recorded omeprazole 40 mg capsule,delayed 40 mg PO DAILY #90 caps 09/05/21 release atorvastatin 20 mg tablet 20 mg PO BEDTIME #90 tabs 12/10/21 fluoxetine 40 mg capsule 40 mg PO DAILY #90 caps 03/09/22 lamotrigine 200 mg tablet 200 mg PO DAILY #90 tabs 03/09/22 primidone 50 mg tablet 50 mg PO BEDTIME #30 tabs 05/04/22 gabapentin 800 mg tablet 800 mg PO TID #90 tabs 08/13/22 valsartan 320 mg tablet 320 mg PO DAILY #90 tabs 09/09/22 cephalexin 500 mg capsule 1,000 mg PO Q8H 15 days #90 caps 09/11/22 ibuprofen 600 mg tablet 600 mg PO Q8H PRN for pain #90 tabs 09/11/22 clonidine HCl 0.1 mg tablet 0.2 mg PO Q8H #90 tabs 09/14/22 amlodipine 2.5 mg tablet 2.5 mg PO DAILY #30 tabs 09/21/22 Allergies Allergy/AdvReac Type Severity Reaction Status Date / Time aripiprazole [From ABILIFY] Allergy Intermediate SHAKING Verified 09/18/22 10:50 bupropion [From WELLBUTRIN] Allergy Intermediate SHAKING, Verified 09/18/22 10:50 WEAKNESS atypical antipsychotics Allergy Intermediate SHAKING/FEET Uncoded 09/09/22 13:23 SWELLING Review of Systems Review of Systems: Constitutional: No Fever, No Chills, No Fatigue, No Malaise ENT/Mouth: No Ear Pain, No Nasal Congestion, No sore throat, No Rhinorrhea, No Swallowing Difficulty Eyes: No Eye Pain, No Swelling, No Redness, No Vision Changes Cardiovascular: No Chest Pain, No SOB, No Edema, No Palpitations Respiratory: No Cough, No Sputum, No Dyspnea Gastrointestinal: No Nausea, No Vomiting, No Diarrhea, No Constipation, No Abdominal pain Genitourinary: No irregular bleeding, No Dysuria, No Hematuria, No Urinary Incontinence/retention, No Flank Pain Musculoskeletal: No joint pain, No Myalgias, No Joint Swelling Skin: No Skin Lesions, No rash Neuro: No Weakness, No Numbness, No Paresthesias, No Loss of Consciousness, + lightheaded, No Headache Yes all other systems are reviewed and are negative Constitutional: Constitutional: Reports as per HPI Neurologic: Denies Abnormal speech present [facility] Past Medical History Attestation statement: The following information was validated with the patient. Medical History Anxiety and depression High cholesterol Hypertension, essential Personal history of nicotine dependence Surgical History History of ankle surgery History of removal of cyst History of tonsillectomy Family History Family History Father No problems noted. Mother No problems noted. Social History Social History Household Members Other:: roomate Housing: Apartment Alcohol intake: never Patient Tobacco Use Status: Former Tobacco user Quit Date: 2020 Years Smoked: (onset 11yo, smoked for 30yrs at 1ppd, 30pyh - quit 2019 using vape e-Cigarette/Vaping Use: Currently Using service: No Current occupational exposures/hazards: No Physical Exam Vital Signs: Vital Signs: Last Vital Signs Temp 97.8 F 09/15/22 11:24 Pulse 53 09/15/22 11:24 Resp 18 09/15/22 11:24 BP 113/68 09/15/22 11:24 Pulse Ox 98 09/15/22 11:24 O2 Del Method 09/15/22 11:24 BMI result Body Mass Index 23.0 Const: General: cooperative, healthy appearing and no acute distress Orientation/consciousness: patient oriented x3 Limitations: no limitations HEENT: Head: Yes normal to inspection and Yes atraumatic Ears: hearing grossly normal bilaterally General nose exam: Normal external nose present Face and sinus: Yes normal facial exam Throat: Yes posterior oropharynx normal, Yes tonsils normal and Yes uvula midline Eyes: General: appearance normal, both eyes and all related structures Pupils: Equal, round and reactive pupils present EOM: EOMs intact bilaterally Neck: Neck: Yes normal visual inspection and Yes no meningeal signs Resp: Effort & Inspection: normal respiratory effort and no respiratory distress Auscultation: clear to auscultation bilaterally Cardio: Rate: regular rate Heart sounds: S1 normal heart sound present and S2 normal heart sound present GI: Inspection: Yes normal to inspection Palpation (GI): Soft to palpation, nontender, no guarding and not rigid : General: Yes no CVA tenderness Back/Spine/Pelvis: Back: no CVA tenderness Skin: Other: Dressing intact to low back without evidence of bleeding/ecchymosis, tenderness or drainage Rashes: no rashes Wounds: no wounds Neuro: General: patient oriented x3, gait normal, tone normal, moves all extremities, no meningeal signs, no focal motor deficits and CN's II-XI intact bilaterally Cranial nerves: Yes Equal, round and reactive pupils present Cognition (Neuro): normal cognition Speech: No Abnormal speech present Gait exam (Neuro): Normal gait present Motor exam (neuro): 5/5 motor strength present throughout Extrem: General: Yes normal to inspection Course Course Course Narrative: --patient eloped the ED prior to any labs or imaging Medical Decision Making Medical Decision Making MDM Narrative: 67-year-old female with PMHx anxiety, depression, HTN, on Valsartan & Clonidine s/p implantation of spinal cord stimulation on 09/11/22 at [facility] c/o intermittent elevated BP's at home with associated lightheadedness x1 month. On exam tearful, anxious, BP 113/68, no focal deficits, ambulating with steady gait. Concern for increased anxiety vs atypical ACS. Rule out metabolic/infectious etiologies. Lower suspicion for ACS/PE or CHF Plan: EKG, labs, CXR Please refer to course for remaining clinical decision making, interpretation of labs/imaging results, and discussions with consultants and/or family members. Differential Diagnosis Differential Diagnoses: The differential diagnosis associated with the presentation includes as above Lab Data MDM Lab Attestation statement: I reviewed the patient's lab results. Independent Interpretation I performed an independent interpretation of an: EKG Interpretation: EKG sinus bradycardia rate of 48. QRS 96. Inverted T-waves in leads 3, AVF, V1 through V6. New from prior EKG in 2019. No STEMI Radiology Impression Discussion of test interpretation with radiology: I have reviewed the radiologist's reading. External Record Review External record reviewed: Outpatient record, Prior outpatient labs, Prior outpatient radiology and Primary care record Chronic Conditions Patient?s care impacted by: Hypertension Discharge Plan Discharge Clinical Impression: Hypertension Patient Disposition: Elopement Prescriptions: No Action omeprazole 40 mg capsule,delayed release(DR/EC) 40 mg PO DAILY Qty: 90 0RF atorvastatin 20 mg tablet 20 mg PO BEDTIME Qty: 90 3RF fluoxetine 40 mg capsule 40 mg PO DAILY Qty: 90 1RF lamotrigine 200 mg tablet 200 mg PO DAILY Qty: 90 1RF primidone 50 mg tablet 50 mg PO BEDTIME Qty: 30 3RF gabapentin 800 mg tablet 800 mg PO TID Qty: 90 1RF ibuprofen 600 mg tablet 600 mg PO Q8H PRN (Reason: for pain) Qty: 90 0RF cephalexin 500 mg capsule 1,000 mg PO Q8H 15 Days Qty: 90 1RF Rx Instructions: take OTC probioitics 25 billion cultures in between the antibiotic doses with food. clonidine HCl 0.1 mg tablet 0.2 mg PO Q8H Qty: 90 1RF Rx Instructions: use for blood pressure >140/90 up to 3 times daily amlodipine 2.5 mg tablet 2.5 mg PO DAILY Qty: 30 0RF valsartan 320 mg tablet 320 mg PO DAILY Qty: 90 3RF valsartan 160 mg tablet 160 mg PO DAILY Referrals: Gay Stewart NP [Primary Care Provider] - 1 Week Discharge Date/Time: 09/16/22 02:04
--- NOTE | 2022-09-15 11:30 | ECG_ITS ---
Test Reason : hypertension Blood Pressure : / mmHG Vent. Rate : 048 BPM Atrial Rate : 048 BPM P-R Int : 172 ms QRS Dur : 096 ms QT Int : 468 ms P-R-T Axes : 050 -19 -42 degrees QTc Int : 418 ms Sinus bradycardia Left ventricular hypertrophy with repolarization abnormality ( R in aVL , [place] product ) Abnormal ECG When compared with ECG of 25-MAY-2019 07:44, Premature supraventricular complexes are no longer Present Non-specific change in ST segment in Lateral leads T wave inversion now evident in Inferior leads T wave inversion now evident in Anterolateral leads Referred By: Melida Boyle Electronically Signed By:STACI BOB MD
== END 2022-09-16 02:04 | disposition left against medical advice (07) ==
PROVIDERS: Emergency Provider Emergency Medicine Emergency Medical Services; PCP Hospitalist
DX: R42 Dizziness and giddiness (principal); I10 Essential (primary) hypertension; Z87.891 Personal history of nicotine dependence; Z79.899 Other long term (current) drug therapy
CPT/HCPCS: 93005; 99283

== ENCOUNTER → 2022-09-18 09:57 | Outpatient (BNVA) | payer MEDICARE, MEDICAID, SELFPAY | PROVIDERS: PCP Hospitalist; Visit Provider Anesthesiology | DX: M53.3 Sacrococcygeal disorders, not elsewhere classified (principal); R10.2 Pelvic and perineal pain; G89.29 Other chronic pain | CPT/HCPCS: 99212 ==

== ENCOUNTER 2022-09-21 19:06 | Emergency (ER) | payer MEDICARE, MEDICAID, SELFPAY ==
[2022-09-21 19:27] VITALS: BP 168/77; BP 200/100; PULSE 57; PULSE 70; RESP 13; TEMP 36.8; O2SAT 97; O2SAT 98; BMI 23.0
--- NOTE | 2022-09-21 19:32 | ECG_ITS ---
Test Reason : HYPOTENSION Blood Pressure : / mmHG Vent. Rate : 058 BPM Atrial Rate : 058 BPM P-R Int : 164 ms QRS Dur : 098 ms QT Int : 450 ms P-R-T Axes : 063 -12 -16 degrees QTc Int : [address] & T wave abnormality, consider anterolateral ischemia Abnormal ECG When compared with ECG of 15-SEP-2022 11:34, No significant change was found Referred By: Generic ED Physician Electronically Signed By:CARLOS ALBERTO RIDDLE
[2022-09-21 19:42] LABS: MANUAL DIFF FLAG NO
[2022-09-21 19:45] LABS: Basophils Absolute Auto 0.1 X10*3/uL (0.0-0.2); Basophils Percent Auto 1.5 % (0-2); Eosinophils Absolute Auto 0.2 X10*3/uL (0.0-0.4); Eosinophils Percent Auto 6.2 % (0-4); Hematocrit 34.7 % (37.0-47.0); Hemoglobin 11.5 g/dl (12.0-16.0); Imm Gran Abs Auto 0.01 X10*3/uL (0.00-0.03); Imm Gran Pct Auto 0.3 % (0.0-0.4); Lymphocytes Absolute Auto 1.4 X10*3/uL (1.2-4.9); Lymphocytes Percent Auto 37.1 % (20-40); Mean Corpuscular HGB Conc 33.1 g/dl (31.0-35.0); Mean Corpuscular Hemoglobin 28.3 pg (27.0-33.0); Mean Corpuscular Volume 85.5 fL (80.0-98.0); Mean Platelet Volume 10.7 fL (9.4-12.3); Monocytes Absolute Auto 0.4 X10*3/uL (0.1-1.2); Monocytes Percent Auto 9.5 % (2-11); Neutrophils Absolute Auto 1.8 x10*3/uL (2.0-8.3); Neutrophils Percent Auto 45.4 % (45-73); Platelet Count 184 X10*3/uL (160-400); Red Blood Count 4.06 X10*6/uL (4.20-5.50); Red Cell Distribution Width 12.4 % (11.0-16.0); White Blood Count 3.9 X10*3/uL (4.8-10.8)
--- NOTE | 2022-09-21 19:49 | ED.GENADULT ---
HPI - General Adult General Chief complaint: General Medical Stated complaint: HIGH BP 216/121,DIZZY PER EMS Time Seen by Provider: 09/21/22 19:33 Source: patient and EMS Mode of arrival: EMS Limitations: no limitations History of Present Illness HPI narrative: Patient comes to the emergency room complaining of hypertension. Patient states that she is not to have high blood pressure, her valsartan was recently increased to 320 mg per day. Patient states that earlier today she was lightheaded, did not have any chest pain or shortness of breath. Patient checked her blood pressure was high, well above 220. Patient took 1 dose of clonidine which she takes p.r.n. high blood pressure. Patient got very anxious, called 911. Per EMS, patient's initial blood pressure was 216/121. On arrival to the emergency room, blood pressure 168/77 Related Data Home Medications Medication Instructions Recorded Confirmed valsartan 160 mg tablet 160 mg PO DAILY 09/18/22 Previous Rx's Medication Instructions Recorded omeprazole 40 mg capsule,delayed 40 mg PO DAILY #90 caps 09/05/21 release atorvastatin 20 mg tablet 20 mg PO BEDTIME #90 tabs 12/10/21 fluoxetine 40 mg capsule 40 mg PO DAILY #90 caps 03/09/22 lamotrigine 200 mg tablet 200 mg PO DAILY #90 tabs 03/09/22 primidone 50 mg tablet 50 mg PO BEDTIME #30 tabs 05/04/22 gabapentin 800 mg tablet 800 mg PO TID #90 tabs 08/13/22 valsartan 320 mg tablet 320 mg PO DAILY #90 tabs 09/09/22 cephalexin 500 mg capsule 1,000 mg PO Q8H 15 days #90 caps 09/11/22 ibuprofen 600 mg tablet 600 mg PO Q8H PRN for pain #90 tabs 09/11/22 clonidine HCl 0.1 mg tablet 0.2 mg PO Q8H #90 tabs 09/14/22 amlodipine 2.5 mg tablet 2.5 mg PO DAILY #30 tabs 09/21/22 Allergies Allergy/AdvReac Type Severity Reaction Status Date / Time aripiprazole [From ABILIFY] Allergy Intermediate SHAKING Verified 09/18/22 10:50 bupropion [From WELLBUTRIN] Allergy Intermediate SHAKING, Verified 09/18/22 10:50 WEAKNESS atypical antipsychotics Allergy Intermediate SHAKING/FEET Uncoded 09/09/22 13:23 SWELLING Review of Systems Review of Systems: Constitutional : No Weight loss, No Fever, No Chills, No Night Sweats, No Fatigue, No Malaise ENT/Mouth : No Hearing loss, No Ear Pain, No Nasal Congestion, No Sinus Pain, No Hoarseness, No sore throat, No Rhinorrhea, No Swallowing Difficulty Eyes: No Eye Pain, No Swelling, No Redness, No Foreign Body, No Discharge, No Vision Changes Cardiovascular : No Chest Pain, No SOB, No Dyspnea on Exertion, No Orthopnea, No Edema, No Palpitations, complaining of high blood pressure Respiratory : No Cough, No Sputum, No Wheezing, No Smoke Exposure, No Dyspnea Gastrointestinal : No Nausea, No Vomiting, No Diarrhea, No Constipation, No abdominal Pain, No Hematochezia, No Melena Genitourinary : no irregular bleeding, No Dysuria, No Urinary Frequency, No Hematuria, No Urinary Incontinence, No Urgency, No Flank Pain, No Urinary Flow Changes, No Hesitancy Musculoskeletal : No joint pain, No Myalgias, No Joint Swelling Skin : No Skin Lesions, No rash Neuro : No Weakness, No Numbness, No Paresthesias, No Loss of Consciousness, complaining of Dizziness, No Headache Psych : No Anxiety/Panic, No Depression, No SI/HI/AH/VH, No Social Issues, Heme/Lymph: No Bruising, No Bleeding,No Lymphadenopathy Endocrine : No Polyuria, No Polydipsia, No Temperature Intolerance [facility] Past Medical History Medical History Anxiety and depression High cholesterol Hypertension, essential Personal history of nicotine dependence Surgical History History of ankle surgery History of removal of cyst History of tonsillectomy Family History Family History Father No problems noted. Mother No problems noted. Social History Social History Household Members Other:: roomate Housing: Apartment Alcohol intake: never Patient Tobacco Use Status: Former Tobacco user Quit Date: 2020 Years Smoked: (onset 11yo, smoked for 30yrs at 1ppd, 30pyh - quit 2019 using vape e-Cigarette/Vaping Use: Currently Using Advance Directives: No Advance Directives Information Provided: No service: No Current occupational exposures/hazards: No Physical Exam ED Vital Signs: Vital Signs - 24 hr 09/21/22 19:27 Temperature 98.3 F Pulse Rate 57 Respiratory Rate 13 Blood Pressure 168/77 H Pulse Oximetry 98 Oxygen Delivery Method Room Air BMI result Body Mass Index 23.0 Const Other: Appearance: Alert. Oriented X3. No acute distress. Eyes: Pupils equal, round and reactive to light. ENT: Pharynx normal. Neck: Normal inspection. Neck supple. No lymph nodes noted. No crepitus CVS: Normal heart rate and rhythm. Pulses normal. Normal S1 and S2 Respiratory: No respiratory distress. Breath sounds normal. No Wheezing. No rales Abdomen: Soft and nontender. No rigidity. No distention. Skin: Skin warm and dry. Normal skin color. Normal skin turgor. Extremities: No lower extremity edema. No Lacerations. No Rash Neuro: Oriented X 3. No motor deficit. No sensory deficit. Moving all extremities. No slurred speech. CN 2 through 12 grossly intact Psych: calm, cooperative, a bit anxious Course Course Course Narrative: -patient's EKG and lab work pending. -initial blood pressure 168/77 Medical Decision Making Medical Decision Making [facility] Narrative: -patient' blood pressure improved from 178/77 to 122/68 without any medication. -patient has very labile blood pressure. -EMS did confirm the blood pressure was 216/121, at the time patient was dizzy. -patient is on maximum dose of valsartan. Patient's blood pressure likely improve at this time, patient just took clonidine prior to arrival. -discussed with the patient the clonidine does cause rebound hypertension. Also, patient's anxiety does not help her blood pressure either. -hypertension likely multifactorial. -since climbing cows rebound hypertension, it would be best to have a regular dose of medication that can help the patient. Patient agreeable to start 2.5 mg of amlodipine at home. -my EKG interpretation: Sinus bradycardia, heart rate 58, no ST segment depression or elevation, nonspecific T-wave inversion in leads 2, V3 through V6. These are old inversions, previously seen in other EKGs. Troponin negative Differential Diagnosis Differential Diagnoses: The differential diagnosis associated with the presentation includes (Hypertension, anxiety) Lab Data [facility] Lab Attestation statement: I reviewed the patient's lab results. 09/21/22 19:39 09/21/22 19:39 Labs: Lab Results 09/21/22 09/21/22 09/21/22 Range/Units 19:39 19:39 19:39 WBC 3.9 L (4.8-10.8) X10*3/uL RBC 4.06 L (4.20-5.50) X10*6/uL Hgb 11.5 L (12.0-16.0) g/dl Hct 34.7 L (37.0-47.0) % MCV 85.5 (80.0-98.0) fL MCH 28.3 (27.0-33.0) pg MCHC 33.1 (31.0-35.0) g/dl RDW 12.4 (11.0-16.0) % Plt Count 184 (160-400) X10*3/uL MPV 10.7 (9.4-12.3) fL Immature Gran % (Auto) 0.3 (0.0-0.4) % Neut % (Auto) 45.4 (45-73) % Lymph % (Auto) 37.1 (20-40) % Scurry % (Auto) 9.5 (2-11) % Eos % (Auto) 6.2 H (0-4) % Baso % (Auto) 1.5 (0-2) % Lymph # (Auto) 1.4 (1.2-4.9) X10*3/uL Scurry # (Auto) 0.4 (0.1-1.2) X10*3/uL Eos # (Auto) 0.2 (0.0-0.4) X10*3/uL Baso # (Auto) 0.1 (0.0-0.2) X10*3/uL Abs Immat Gran (auto) 0.01 (0.00-0.03) X10*3/uL Absolute Neuts (auto) 1.8 L (2.0-8.3) x10*3/uL Absolute Nucleated RBC 0.000 (0.0-0.012) X10*3/uL Nucleated RBC % (auto) 0.0 (0.0-0.2) /100WBC Sodium 142 (135-145) mmol/L Potassium 4.1 (3.3-5.1) mmol/L Chloride 106 (96-108) mmol/L Carbon Dioxide 27 (22-29) mmol/L Anion Gap 13 (12-20) BUN 9 (9-16) mg/dL Creatinine 0.68 (0.5-1.4) mg/dL Estim Creat Clear Calc 66.4 Estimated GFR > 60 Random Glucose 105 (60-115) mg/dL Calcium 8.2 L D (8.4-10.2) mg/dL Total Bilirubin 0.3 (0.0-1.0) mg/dL AST 16 (5-31) U/L ALT 13 (0-31) U/L Alkaline Phosphatase 65 (39-117) U/L Troponin I High Sens < 3.5 (<3.5-17.0) ng/L Total Protein 5.6 L (6.5-8.0) g/dL Albumin 3.7 (3.5-5.0) g/dL Independent Interpretation I performed an independent interpretation of an: EKG Discharge Plan Discharge Clinical Impression: Hypertension, essential Patient Disposition: Home, Self-Care Instructions: Hypertension (ED) Additional Instructions: Continue taking valsartan at your current dose, now also start taking amlodipine. Her primary care physician may increase the dose as necessary. Avoid taking clonidine, as this may cause rebound hypertension. Please follow-up with your primary care physician tomorrow. If you have any worsening or new symptoms, please return to the emergency room or call 911 Prescriptions: New amlodipine 2.5 mg tablet 2.5 mg PO DAILY Qty: 30 0RF No Action omeprazole 40 mg capsule,delayed release(DR/EC) 40 mg PO DAILY Qty: 90 0RF atorvastatin 20 mg tablet 20 mg PO BEDTIME Qty: 90 3RF fluoxetine 40 mg capsule 40 mg PO DAILY Qty: 90 1RF lamotrigine 200 mg tablet 200 mg PO DAILY Qty: 90 1RF primidone 50 mg tablet 50 mg PO BEDTIME Qty: 30 3RF gabapentin 800 mg tablet 800 mg PO TID Qty: 90 1RF ibuprofen 600 mg tablet 600 mg PO Q8H PRN (Reason: for pain) Qty: 90 0RF cephalexin 500 mg capsule 1,000 mg PO Q8H 15 Days Qty: 90 1RF Rx Instructions: take OTC probioitics 25 billion cultures in between the antibiotic doses with food. clonidine HCl 0.1 mg tablet 0.2 mg PO Q8H Qty: 90 1RF Rx Instructions: use for blood pressure >140/90 up to 3 times daily valsartan 320 mg tablet 320 mg PO DAILY Qty: 90 3RF valsartan 160 mg tablet 160 mg PO DAILY
[2022-09-21 20:04] LABS: Alanine Aminotransferase 13 U/L (0-31); Albumin Level 3.7 g/dL (3.5-5.0); Alkaline Phosphatase 65 U/L (39-117); Anion Gap 13 (12-20); Aspartate Amino Transferase 16 U/L (5-31); Bilirubin Total 0.3 mg/dL (0.0-1.0); Blood Urea Nitrogen 9 mg/dL (9-16); Calcium 8.2 mg/dL (8.4-10.2); Carbon Dioxide 27 mmol/L (22-29); Chloride 106 mmol/L (96-108); Creatinine Clr Calc Pharmacy 66.4; Estimated Glomerular Filt Rate > 60; Glucose Random 105 mg/dL (60-115); Potassium 4.1 mmol/L (3.3-5.1); Sodium 142 mmol/L (135-145); Total Protein 5.6 g/dL (6.5-8.0)
[2022-09-21 20:10] LABS: Troponin-I High Sensitivity < 3.5 ng/L (<3.5-17.0)
[2022-09-21 21:40] VITALS: BP 144/75; PULSE 53; RESP 18; TEMP 36.6; O2SAT 99
--- NOTE | 2022-09-21 21:47 | PC.NURSE ---
IV REMOVED. VSS. PT AMBULATORY. SKIN PWD. DISCHARGE PACKET ROVIDED TO PT. PT VERBALIZED UNDERSTANDING OF DISCHARGE PLAN. PT DISCHARGED TO WAITING ROOM
== END 2022-09-21 21:48 | disposition home or self-care (01) ==
PROVIDERS: Emergency Provider Emergency Medicine; PCP Hospitalist
DX: I10 Essential (primary) hypertension (principal); R42 Dizziness and giddiness; E78.5 Hyperlipidemia, unspecified; Z79.02 Long term (current) use of antithrombotics/antiplatelets; Z79.899 Other long term (current) drug therapy; Z87.891 Personal history of nicotine dependence
CPT/HCPCS: 36415; 80053; 84484; 85025; 93005; 99283; 99284

== ENCOUNTER → 2022-09-24 09:48 | Outpatient (BNVA) | payer MEDICARE, MEDICAID, SELFPAY | PROVIDERS: PCP Hospitalist; Visit Provider Anesthesiology | DX: M53.3 Sacrococcygeal disorders, not elsewhere classified (principal); G89.29 Other chronic pain; R10.2 Pelvic and perineal pain; Z98.890 Other specified postprocedural states | CPT/HCPCS: 99212 ==

== ENCOUNTER 2022-10-16 10:26 | Outpatient (REF) | payer MEDICARE, MEDICAID, SELFPAY ==
--- NOTE | ~2022-10-16 | CT_ITS ---
EXAMINATION: CT CHEST SCREENING CLINICAL INFORMATION: Former smoker. Quit 2 years ago. 40 pack year history. COMPARISON: Previous chest CT scans most recent March 2022 TECHNIQUE: Multidetector volumetric CT imaging of the chest is performed without contrast using low dose technique. Additional 2D coronal and sagittal reformatted images and axial 3D maximum intensity projection (MIP) images are generated on the CT workstation. This CT examination was performed using dose optimization techniques as appropriate, variously including the following: *Automated exposure control *Adjustment of mA and/or kV according to patient size (this includes techniques or standardized protocols for targeted exams where dose is matched to indication/reason for exam; i.e. extremities or head) *Use of iterative reconstruction technique DLP: 41 mGy-cm FINDINGS: LUNGS: There is evidence of emphysema. The small pulmonary nodules are stable. Largest pulmonary nodules are a 3 x 7 mm right lower lobe nodule adjacent to the diaphragmatic surface axial image 365 series 5 and a 5 mm peripheral or subpleural lingular nodule adjacent to the fissure axial image 289 series 5. No new pulmonary nodule. No endobronchial or endotracheal lesion. MEDIASTINUM: The mediastinum is normal. CORONARY ARTERY CALCIFICATION: None visualized on this study. PLEURA: There is no pleural effusion. No pleural mass or thickening. AXILLA: No lymphadenopathy. UPPER ABDOMEN: Unremarkable OSSEOUS STRUCTURES: Degenerative changes. CT/CT lung screen follow up IMPRESSION: Emphysema. Stable pulmonary nodules. ASSESSMENT: Lung-RADS category 2: Benign RECOMMENDATION: Annual low-dose chest CT follow-up.
== END 2022-10-16 10:27 | disposition home or self-care (01) ==
LOC: HO.CT 10:26
PROVIDERS: Visit Provider Physician Assistant Medical
DX: Z12.2 Encounter for screening for malignant neoplasm of respiratory organs (principal); Z87.891 Personal history of nicotine dependence
CPT/HCPCS: 71250

== ENCOUNTER 2023-02-19 13:37 | Outpatient (AMB) | payer OTHER, SELFPAY ==
--- NOTE | 2023-02-19 13:39 | MHC.PC.OV ---
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 Required: No Accompanied by: Self / Same As Patient Allergies aripiprazole [From ABILIFY] Allergy (Intermediate, Verified 02/19/23 13:59) SHAKING bupropion [From WELLBUTRIN] Allergy (Intermediate, Verified 02/19/23 13:59) SHAKING, WEAKNESS atypical antipsychotics Allergy (Intermediate, Uncoded 02/19/23 13:59) SHAKING/FEET SWELLING Medication List - Last Reconciled 02/19/23 by Mely Brooks CNP amlodipine 5 mg PO BID 30 days atorvastatin 20 mg PO BEDTIME clonidine HCl 0.2 mg (2 x 0.1 mg) PO Q8H PRN MDD 3 cyclobenzaprine 10 mg PO TID PRN fluoxetine 40 mg PO DAILY gabapentin 800 mg PO TID ibuprofen 600 mg PO Q8H PRN lamotrigine 200 mg PO DAILY omeprazole 40 mg PO DAILY valsartan 320 mg PO DAILY Tobacco use date assessed: 09/23/22 Fall risk assessment: No Falls in past year Last assessed Fall Risk: 02/19/23 Dental Screening Dental Screen Date: 02/19/23 Did you have a dental visit in the last 12 months?: Yes Did you have a dental problem in the last 6 months where you did not have access to dental care?: No Was dental information given to patient?: Patient has dentist HPI HPI Comments History of Present Illness Details 67-year-old female presents for medication refill request. She notes she ran out of Gabapentin, Cyclobenzaprine, and Ibuprofen. She takes these medications for chronic coccyx pain. She notes that the pain is persistent. Denies tingling, numbness, or loss of sensation. Denies loss of bowel or bladder control. [facility] Medical History Anxiety and depression High cholesterol HTN, goal below 130/80 Hypertension, essential Personal history of nicotine dependence Surgical History History of ankle surgery History of removal of cyst History of tonsillectomy Family History Father No problems noted. Mother No problems noted. Son Hypertension Social History Household Members Other:: roomate Housing: Apartment Alcohol intake: never Patient Tobacco Use Status: Former Tobacco user Quit Date: 2020 Years Smoked: (onset 11yo, smoked for 30yrs at 1ppd, 30pyh - quit 2019 using vape e-Cigarette/Vaping Use: Currently Using service: No Current occupational exposures/hazards: No Cognitive needs: No Hearing needs: No Vision needs: No Review of Systems Const Details: Const Denies chills, Denies fatigue, Denies fever(s), Denies headache(s) and Denies weakness ENT Denies dizziness and Denies headache(s) Card Denies chest pain, Denies lightheadedness, Denies dyspnea and Denies other (Palpitations) Resp Denies cough, Denies dyspnea, Denies wheezing and Denies other ( shortness of breath) GI Denies abdominal pain, Denies melena, Denies hematochezia, Denies change in bowel habits, Denies dyspepsia and Denies nausea Denies hematuria and Denies dysuria Musc Reports pain to coccyx, Denies abnormal gait, Denies myalgias, Denies arthralgias, Denies numbness and Denies tingling Skin/Breast Denies rash, Denies unusual bruising and Denies wounds Neuro Denies abnormal gait, Denies dizziness, Denies headache(s), Denies memory loss, Denies numbness, Denies Sensory deficit (Neuro), Denies tingling and Denies weakness Psych Denies anxiety and Denies depression Endo Denies fatigue Aller/Immun Denies wheezing Physical exam (Primary Care) Vital Signs: Last Vital Signs Pulse 67 02/19/23 13:41 BP 112/64 02/19/23 13:41 Pulse Ox 97 02/19/23 13:41 Oxygen Delivery Method Room Air 02/19/23 13:41 BMI result Body Mass Index 23.0 Tobacco/Smoking Status: Tobacco use Status Tobacco use date assessed 09/23/22 02/19/23 13:41 Patient Tobacco Use Status Former Tobacco user 02/19/23 13:41 e-Cigarette/Vaping Use Currently Using 02/19/23 13:41 Const Other: General: no acute distress and well developed Nutritional Appearance: well nourished Orientation/consciousness: patient oriented x3 [facility] Head: Yes normocephalic and Yes atraumatic Eyes General: appearance normal, both eyes and all related structures Pupils: Equal, round and reactive pupils present EOM: EOMs intact bilaterally Resp Effort & Inspection: normal respiratory effort Auscultation: clear to auscultation bilaterally Cardio Rate: regular rate Rhythm: regular rhythm Heart sounds: S1 normal heart sound present, S2 normal heart sound present, no gallops, no murmurs and no rubs GI Palpation (GI): No Abdominal aortic bruit present, Soft to palpation, nontender, No hepatosplenomegaly present and No Rebound tenderness present Auscultation: normal bowel sounds General: Yes no CVA tenderness Back/Spine/Pelvis Back: no CVA tenderness Cervical Spine: cervical ROM normal and No Cervical spine tenderness Thoracic/Lumbar Spine: thoraco-lumbar ROM normal, No pain with thoraco-lumbar ROM, No thoracic spinal tenderness and No lumbar spinal tenderness Extrem General: Yes normal to inspection, No edema and No calf tenderness Skin General: warm and dry. Normal skin color. Normal skin turgor Lesions: no lesions Rashes: no rashes Trauma: no lacerations or abrasions Wounds: no wounds Nails: normal Neuro General: patient oriented x3, gait normal and no focal neuro deficit Cranial nerves: Yes Equal, round and reactive pupils present Cognition (Neuro): normal cognition Gait exam (Neuro): Normal gait present Sensory Exam: No Sensory deficit (Neuro) Psych Appearance: grossly normal Affect: normal affect Attitude: cooperative Thought process: Normal thought process present Assessment and Plan Assessment & Plan (1) Coccydynia: Code(s): M53.3 - Sacrococcygeal disorders, not elsewhere classified Plan: She notes she ran out of Gabapentin, Cyclobenzaprine, and Ibuprofen. She takes these medications for chronic coccyx pain. She notes that the pain is persistent. Denies tingling, numbness, or loss of sensation. Denies loss of bowel or bladder control. Pain medications refilled. Take as prescribed Follow-up with worsening or new symptoms Verbalized understanding and agreed with treatment plan. (2) HTN, goal below 140/90: Code(s): I10 - Essential (primary) hypertension Plan: Blood pressures control, 112/64, within goal of less than 140/90 Continue to take amlodipine and valsartan as prescribed Low-sodium diet encouraged Follow-up with PCP in 1-2 months Return sooner with concerns or symptoms Verbalized understanding and agreed with treatment plan. Medications: Refilled cyclobenzaprine 10 mg PO TID PRN 90 tabs 1RF for muscle spasm M53.3 - Sacrococcygeal disorders, not elsewhere classified, M54.40 - Lumbago with sciatica, unspecified side ibuprofen 600 mg PO Q8H PRN 90 tabs 1RF for pain M53.3 - Sacrococcygeal disorders, not elsewhere classified, M54.40 - Lumbago with sciatica, unspecified side gabapentin 800 mg PO TID 90 tabs 1RF M54.40 - Lumbago with sciatica, unspecified side Coding Level of Care Code Est Pt Level 3 (70181) Diagnoses Coccydynia M53.3 HTN, goal below 140/90 I10 Time Spent (min) 25
[2023-02-19 13:41] VITALS: BP 112/64; PULSE 67; O2SAT 97; BMI 23.0
== END 2023-02-19 14:20 | disposition home or self-care (01) ==
PROVIDERS: PCP Hospitalist; Visit Provider Nurse Practitioner Family
DX: M53.3 Sacrococcygeal disorders, not elsewhere classified (principal); I10 Essential (primary) hypertension
CPT/HCPCS: 99213

== ENCOUNTER → 2023-03-29 11:38 | Outpatient (BNVA) | payer OTHER, SELFPAY | PROVIDERS: PCP Hospitalist; Visit Provider Anesthesiology ==

== ENCOUNTER 2023-05-12 08:43 | Outpatient (AMB) | payer OTHER, SELFPAY ==
--- NOTE | 2023-05-12 08:44 | MHC.OFFVIS ---
Intake Vital Signs 05/12/23 08:47 Height 5 ft 3 in Weight 127 lb BMI 22.5 BP 136/82 Blood Pressure Location Lt brachial Position Sitting Respiration 16 Pulse 76 Pulse Source Pulse Oximeter Pulse Oximetry (%) 99 Oxygen Delivery Method Room Air Intake Visit Reasons: increased pain Allergies aripiprazole [From ABILIFY] Allergy (Intermediate, Verified 05/12/23 08:48) SHAKING bupropion [From WELLBUTRIN] Allergy (Intermediate, Verified 05/12/23 08:48) SHAKING, WEAKNESS atypical antipsychotics Allergy (Intermediate, Uncoded 03/29/23 12:12) SHAKING/FEET SWELLING HPI HPI Comments History of Present Illness Details Ping is back in my office with new complaint on pain in the right groin right hip with radiation of the pain down the thigh and lower leg all the way to her ankle but not below the level of that side. She denies that pain starts from the lumbar spine there is no connection to the back pain. She was a subject of implantation of spinal cord stimulator [employer] on 09/11/22 for the treatment of coccydynia. Patient reports 80 % pain relief. She reports improving mobility, better ability to sit, stand and walk and improving quality of life with decreased pain. PRIOR : Complains on coccydynia. She went for trial of [employer] spinal cord stimulator. During the trial I performed bilateral lumbar position 16 contact electrodes position in the posterior epidural space from L5 to lower border of L3 vertebra as. Original intention was to advanced does electrodes into the caudal canal however the retrograde advancement proved to be very difficult. Nevertheless the patient reported excellent pain relief. She reported stimulation heat the spot immediately after the insertion of the electrodes after she woke up in the PACU. She is requesting me to perform implantation of the SCS [employer]. I will perform this procedure as planned under sedation. She reported that pelvic floor is on fire. She reported significant sensation of burning aching pins and needles and stabbing pain in the projection of her coccyx. it radiates into her kylee -area. She reported history of coccyx fracture 30 years ago. However her pain started only 4 years ago. She was evaluated by [facility] and [facility] in [place]. She reported that [facility] pain management performed ganglion impar injections which were initially very helpful but then they faded ineffectiveness. She got physical therapy and chiropractic manipulations she is in chiropractic manipulation presently for 1 month now. Reports minimal help improvement. She tried acupuncture in February of this year 2021 and reported no pain improvement. She had some images performed for her lumbar area and pelvis. [facility] Medical History Anxiety and depression High cholesterol HTN, goal below 130/80 Hypertension, essential Personal history of nicotine dependence Surgical History History of ankle surgery History of removal of cyst History of tonsillectomy Family History Father No problems noted. Mother No problems noted. Son Hypertension Social History Household Members Other:: roomate Housing: Apartment Alcohol intake: never Patient Tobacco Use Status: Former Tobacco user Quit Date: 2020 Years Smoked: (onset 11yo, smoked for 30yrs at 1ppd, 30pyh - quit 2019 using vape e-Cigarette/Vaping Use: Currently Using service: No Current occupational exposures/hazards: No Cognitive needs: No Hearing needs: No Vision needs: No Review of Systems Const All systems reviewed & are unremarkable except as noted in HPI and below Physical Exam Vital Signs: Last Vital Signs Pulse 76 05/12/23 08:47 Resp 16 05/12/23 08:47 BP 136/82 05/12/23 08:47 Pulse Ox 99 05/12/23 08:47 Oxygen Delivery Method Room Air 05/12/23 08:47 BMI result Body Mass Index 22.5 Const General: cooperative, healthy appearing, comfortable, no acute distress, well developed, alert, awake and Physically active Orientation/consciousness: patient oriented x3 HEENT Head: Yes normal to inspection, Yes normocephalic and Yes atraumatic Neck Neck: Yes normal visual inspection, Yes full ROM and Yes no lymphadenopathy Resp Effort & Inspection: normal respiratory effort and able to speak in complete sentences GI Inspection: Yes normal to inspection Back/Spine/Pelvis Other: Tenderness to palpation in the projection of the coccygeal bones is very mild she reports the pain in surrounding area which probably justifies the pelvic pain. Tests for sacroiliac joint pathology such as: Chavo test, Gaenslen test, negative. Cervical Spine: normal cervical lordosis and cervical ROM normal Thoracic/Lumbar Spine: thoracic and lumbar spine normal to inspection Neuro General: patient oriented x3, gait normal, tone normal, moves all extremities, no focal motor deficits and normal sensation to monofilament Extrem Other: Lateral rotation of the hip on the right as well as prolong standing and walking aggravate the pain in the groin. Lateral pain Pain radiates from the trochanter all the way down to the ankle on the right. Psych Appearance: grossly normal and well kempt Mental Status: mental status grossly normal Speech and movement: Normal speech and movement present and Clear speech present Affect: normal affect Attitude: cooperative Thought process: Normal thought process present Assessment & Plan Assessment & Plan (1) Osteoarthritis of right hip: Code(s): M16.11 - Unilateral primary osteoarthritis, right hip (2) Right hip pain: Code(s): M25.551 - Pain in right hip (3) Trochanteric bursitis, right hip: Code(s): M70.61 - Trochanteric bursitis, right hip (4) Coccydynia: Code(s): M53.3 - Sacrococcygeal disorders, not elsewhere classified (5) Chronic pelvic pain in female: Code(s): R10.2 - Pelvic and perineal pain; G89.29 - Other chronic pain Plan Patient is status post implantation of spinal cord stimulator [employer] on 09/11/22 for the treatment of coccydynia. Patient reports 80% pain relief with improving mobility, better ability to sit, stand and walk and improving quality of life with decreased pain. She is here with a new complaint. She complains on pain in the right hip, pain in the right groin with walking and standing pain radiates down to the right ankle. I suspect combination of the hip osteoarthritis and trochanteric bursitis. I will send her for right hip x-ray. When x-ray will be back and there is some changes I will offer her steroid injection combination of the right hip steroids as well as trochanteric bursa injection of steroids. We will be looking for other pain generators if her hip x-ray is demonstrating intact hip. Orders: Orders XR hip RT min 2V Today M16.11 - Unilateral primary osteoarthritis, right hip, M25.551 - Pain in right hip Patient Instructions: I here by testify that I spent 42 minutes in conversation with this patient, examination of the patient, evaluation of prior records, planning her care and organizing her note. Coding Level of Care Code Est Pt Level 5 (76894) Diagnoses Osteoarthritis of right hip M16.11 Right hip pain M25.551 Trochanteric bursitis, right hip M70.61 Coccydynia M53.3 Chronic pelvic pain in female R10.2; G89.29
[2023-05-12 08:47] VITALS: BP 136/82; PULSE 76; RESP 16; O2SAT 99; BMI 22.5
== END 2023-05-12 09:06 | disposition home or self-care (01) ==
PROVIDERS: PCP Hospitalist; Visit Provider Anesthesiology
DX: M16.11 Unilateral primary osteoarthritis, right hip (principal); M25.551 Pain in right hip; M70.61 Trochanteric bursitis, right hip; M53.3 Sacrococcygeal disorders, not elsewhere classified; R10.2 Pelvic and perineal pain; G89.29 Other chronic pain
CPT/HCPCS: 99215

== ENCOUNTER → 2023-05-12 08:43 | Outpatient (BNVA) | payer OTHER, SELFPAY | PROVIDERS: PCP Hospitalist; Visit Provider Anesthesiology | DX: M16.11 Unilateral primary osteoarthritis, right hip (principal); M25.551 Pain in right hip; M70.61 Trochanteric bursitis, right hip; M53.3 Sacrococcygeal disorders, not elsewhere classified; R10.2 Pelvic and perineal pain; G89.29 Other chronic pain | CPT/HCPCS: 99212 ==

== ENCOUNTER 2023-05-18 09:52 | Emergency (ER) | payer OTHER, SELFPAY ==
[2023-05-18 09:57] VITALS: BP 193/89; PULSE 89; RESP 18; TEMP 36.7; O2SAT 96; BMI 22.4
--- NOTE | 2023-05-18 10:42 | PC.NURSE ---
Patient reports sister 3 weeks ago and she has been crying uncontrollably ever since. Denies SI/HI but reports would like to be put on an antidepressant. Patient with brother who she says is a good support for her. Reports poor appetite and has lost weight. Denies pain or discomfort
[2023-05-18 11:03] LABS: Appearance Urine Clear; Color Urine Yellow; Glucose Urine UA Negative (Negative); Leukocyte Esterase Urine Trace (Negative); Nitrite Urine Negative (Negative); UMIC TRIGGER UACC YES; Urine Blood Negative (Negative); Urine Ketones Negative (Negative); Urine Protein Negative (Neg-Trace)
[2023-05-18 11:08] LABS: Bacteria Urine None Seen (None Seen); Hyaline Casts Urine 0-2 /LPF (0-2); RBC Urine 0-2 /HPF (0-2); Squamous Epithelial Cell Urine 0-2 /HPF (0-2); WBC Urine 0-5 /HPF (0-5)
--- NOTE | 2023-05-18 11:36 | ED_ITS ---
HPI - General Adult General Chief complaint: Psychiatric Symptoms Stated complaint: Depressed Crisis Time Seen by Provider: 05/18/23 11:35 Source: patient Mode of arrival: ambulatory Limitations: no limitations History of Present Illness HPI narrative: 67 year old female with a history of anxiety and depression presents with complaints of worsening depression and sadness after her sister 3 weeks ago. Patient reports her sister has been on hospice for 6 months and after her passing she initially felt as though she was coping well. A week and a half ago she began suffering from poor sleep, anorexia and episodes of sudden and uncontrollable crying. Patient endorses having contacted her PCP for help managing her depressive symptoms but they are unable to see her until August. She has an online therapist whom she spoke to on Wednesday and will continue to utilize but does not have a psychiatrist. She reports having taken celexa in the past with good effect, with the most recent use being 6 year ago. Patient denies current SI, HI, recent illness, fever, SOB, chest pain, nausea, vomiting and diarrhea. Onset (ago): week(s) Relieving factors: none Exacerbating factors: none Associated symptoms: denies other symptoms Treatments prior to arrival: none Related Data Previous Rx's Medication Instructions Recorded lamotrigine 200 mg tablet 200 mg PO DAILY #90 tabs 03/09/22 valsartan 320 mg tablet 320 mg PO DAILY #90 tabs 09/09/22 amlodipine 5 mg tablet 5 mg PO BID 30 days #60 tabs 12/21/22 clonidine HCl 0.1 mg tablet 0.2 mg (2 x 0.1 mg) PO Q8H PRN 12/24/22 hypertensive emergency #180 tabs fluoxetine 40 mg capsule 40 mg PO DAILY #90 caps 01/27/23 cyclobenzaprine 10 mg tablet 10 mg PO TID PRN for muscle spasm 02/19/23 #90 tabs gabapentin 800 mg tablet 800 mg PO TID #90 tabs 02/19/23 ibuprofen 600 mg tablet 600 mg PO Q8H PRN for pain #90 tabs 02/19/23 omeprazole 40 mg capsule,delayed 40 mg PO DAILY #90 caps 03/24/23 release Allergies Allergy/AdvReac Type Severity Reaction Status Date / Time aripiprazole [From ABILIFY] Allergy Intermediate SHAKING Verified 05/18/23 09:56 bupropion [From WELLBUTRIN] Allergy Intermediate SHAKING, Verified 05/18/23 09:56 WEAKNESS atypical antipsychotics Allergy Intermediate SHAKING/FEET Uncoded 03/29/23 12:12 SWELLING Review of Systems 2 Constitutional: Constitutional: Reports no additional constitutional complaints, Denies chills, Denies fever(s) and Denies night sweats Eyes: Eyes: Reports no additional eye complaints, Denies blurry vision, Denies change in vision, Denies diplopia, Denies eye discharge, Denies loss of vision and Denies eye pain ENT: Denies dizziness Cardiovascular: Cardiovascular: Reports no additional cardiovascular complaints, Denies chest pain, Denies lightheadedness, Denies Loss of Consciousness and Denies dyspnea Respiratory: Respiratory: Reports no additional respiratory complaints and Denies dyspnea Gastrointestinal: Gastrointestinal: Reports no additional gastrointestinal complaints, Denies abdominal pain, Denies melena, Denies hematochezia, Denies change in bowel habits and Denies change in stool character Genitourinary: Genitourinary: Denies hematuria, Denies urinary frequency, Denies dysuria, Denies urinary incontinence, Denies urinary hesitancy and Denies urinary urgency Musculoskeletal: Musculoskeletal: Reports no additional musculoskeletal complaints, Denies numbness and Denies tingling Neurologic: Denies dizziness, Denies loss of vision, Denies numbness and Denies tingling Psychiatric: Psychiatric: Reports no additional psychiatric complaints, Reports depression, Denies homicidal ideation and Denies suicidal ideation Endocrine: Endocrine: Reports no additional endocrine complaints Hematologic/Lymphatic: Hematologic/Lymphatic: Reports no additional hematologic/lymphatic complaints Allergic/Immunologic: Allergic/Immunologic: Reports no additional allergic/immunologic complaints [facility] Past Medical History Attestation statement: The following information was validated with the patient. Source: old records reviewed and nursing notes reviewed Medical History HTN, goal below 130/80 Personal history of nicotine dependence High cholesterol Anxiety and depression Hypertension, essential Surgical History History of tonsillectomy History of ankle surgery History of removal of cyst Family History Family History Father No problems noted. Mother No problems noted. Son Hypertension Social History Social History Household Members Other:: roomate Housing: Apartment Alcohol intake: former Patient Tobacco Use Status: Former Tobacco user Quit Date: 2020 Years Smoked: (onset 11yo, smoked for 30yrs at 1ppd, 30pyh - quit 2019 using vape e-Cigarette/Vaping Use: Currently Using service: No Current occupational exposures/hazards: No Cognitive needs: No Hearing needs: No Vision needs: No Physical Exam ED Vital Signs: Vital Signs - 24 hr 05/18/23 09:57 Temperature 98.1 F Pulse Rate 89 Respiratory Rate 18 Blood Pressure 193/89 H Pulse Oximetry 96 Oxygen Delivery Method Room Air BMI result Body Mass Index 22.4 Const General: cooperative, no acute distress, alert and awake Nutritional Appearance: well nourished Orientation/consciousness: patient oriented x3 Limitations: no limitations HENMT Head: Yes normal to inspection and Yes atraumatic Ears: hearing grossly normal bilaterally and external ears normal General nose exam: Normal external nose present, no nasal discharge noted and no epistaxis Face and sinus: Yes normal facial exam, No abrasion and No laceration Mouth: Normal oral and palatal mucosa present, no drooling and no muffled voice Eyes General: appearance normal, both eyes and all related structures Periorbital: periorbital findings normal Eyelids: Yes eyelids normal Conjunctivae: conjunctivae normal Pupils: Equal, round and reactive pupils present EOM: EOMs intact bilaterally Neck Neck: Yes normal visual inspection, Yes full ROM and Yes no lymphadenopathy Chest Chest palpation & inspection: normal inspection of the chest Resp Effort & Inspection: normal respiratory effort and able to speak in complete sentences GI Inspection: Yes normal to inspection Neuro General: patient oriented x3 and moves all extremities Cranial nerves: Yes Equal, round and reactive pupils present Cognition (Neuro): normal cognition Motor exam (neuro): 5/5 motor strength present throughout Sensory Exam: Normal double simultaneous stimulation for sensation Coordination: [id number] test normal Extrem General: Yes normal to inspection, Yes full ROM and Yes capillary refill normal Psych Appearance: grossly normal Mental Status: mental status grossly normal Speech and movement: Normal speech and movement present Affect: normal affect Attitude: cooperative Thought process: Normal thought process present Thought content: Normal thought content present Insight: Good insight present (Psych) Medical Decision Making Medical Decision Making MDM Narrative: Patient is a 67 year old assigned female at with a history of depression presenting to the emergency department today with increased depression. Patient's physical exam was unremarkable. Patient's blood work was unremarkable. Patient's urine showed no acute process. I explained my physical exam findings as well as all test results to the patient. I answered all questions asked by the patient. Patient was seen by CARE team who called the patient's PCP and got her in tomorrow with them. Patient contracted for safety and was given crisis resources. I stressed the importance of the patient taking her medication as prescribed. I stressed the importance of the patient following up with her primary care provider. I stressed the importance of the patient returning to the emergency department immediately if her symptoms were to worsen or if she were to develop any thoughts of harming herself, thoughts of harming others, dizziness, shortness of breath, difficulty breathing, chest pain, blurry vision, loss of vision, nausea, vomiting, abdominal pain, fever, chills, back pain, or any other complaints. Patient verbalized agreement and understanding with this treatment plan and discharge. Differential Diagnosis Differential Diagnoses: The differential diagnosis associated with the presentation includes Depression Grief Lab Data MDM Lab Attestation statement: I reviewed the patient's lab results. My interpretation of these studies and their corresponding values is that they are grossly normal. 05/18/23 11:29 05/18/23 11:29 Labs: Lab Results 05/18/23 05/18/23 Range/Units 10:57 11:29 WBC 5.6 (4.8-10.8) X10*3/uL RBC 4.58 (4.20-5.50) X10*6/uL Hgb 12.8 (12.0-16.0) g/dl Hct 38.7 (37.0-47.0) % MCV 84.5 (80.0-98.0) fL MCH 27.9 (27.0-33.0) pg MCHC 33.1 (31.0-35.0) g/dl RDW 12.7 (11.0-16.0) % Plt Count 229 (160-400) X10*3/uL MPV 11.0 (9.4-12.3) fL Immature Gran % (Auto) 0.2 (0.0-0.4) % Neut % (Auto) 65.1 (45-73) % Lymph % (Auto) 24.9 (20-40) % Ward % (Auto) 8.2 (2-11) % Eos % (Auto) 0.7 (0-4) % Baso % (Auto) 0.9 (0-2) % Lymph # (Auto) 1.4 (1.2-4.9) X10*3/uL Ward # (Auto) 0.5 (0.1-1.2) X10*3/uL Eos # (Auto) 0.0 (0.0-0.4) X10*3/uL Baso # (Auto) 0.1 (0.0-0.2) X10*3/uL Abs Immat Gran (auto) 0.01 (0.00-0.03) X10*3/uL Absolute Neuts (auto) 3.7 (2.0-8.3) x10*3/uL Absolute Nucleated RBC 0.000 (0.0-0.012) X10*3/uL Nucleated RBC % (auto) 0.0 (0.0-0.2) /100WBC Sodium 140 (135-145) mmol/L Potassium 4.7 (3.3-5.1) mmol/L Chloride 105 (96-108) mmol/L Carbon Dioxide 27 (22-29) mmol/L Anion Gap 13 (12-20) BUN 10 (9-16) mg/dL Creatinine 0.78 (0.5-1.4) mg/dL Estim Creat Clear Calc 57.9 Estimated GFR > 60 Random Glucose 94 (60-115) mg/dL Calcium 9.1 D (8.4-10.2) mg/dL Urine Color Yellow Urine Appearance Clear Urine pH 6.0 (5.0-9.0) Ur Specific [employer] 1.010 (1.005-1.025) Urine Protein Negative (Neg-Trace) mg/dL Urine Glucose (UA) Negative (Negative) mg/dL Urine Ketones Negative (Negative) mg/dL Urine Blood Negative (Negative) Urine Nitrite Negative (Negative) Ur Leukocyte Esterase Trace H (Negative) Urine RBC 0-2 (0-2) /HPF Urine WBC 0-5 (0-5) /HPF Ur Squamous Epith Cells 0-2 (0-2) /HPF Urine Bacteria None Seen (None Seen) Hyaline Casts 0-2 (0-2) /LPF Urine Opiates Screen Not Detected (Not Detect) Urine Fentanyl Screen Not Detected (Not Detect) Ur Barbiturates Screen Not Detected (Not Detect) Ur Phencyclidine Scrn Not Detected (Not Detect) Ur Amphetamines Screen Not Detected (Not Detect) U Benzodiazepines Scrn Not Detected (Not Detect) Urine Cocaine Screen Not Detected (Not Detect) U Marijuana (THC) Screen Not Detected (Not Detect) COVID-19 (EVAN) Negative (Negative) COVID-19 Clin Com See Note Discharge Plan Discharge Clinical Impression: Depression Patient Disposition: Home, Self-Care Instructions: Depression (DC) Additional Instructions: Follow up with your primary care provider. Return to the emergency department immediately if your symptoms worsen or if you develop any dizziness, shortness of breath, difficulty breathing, chest pain, blurry vision, loss of vision, nausea, vomiting, abdominal pain, fever, chills, back pain, or any other complaints. [facility]: [address] [place] [id number] Walk in hours from 10am - 12pm Open from 10am - 12pm [facility] Crisis Services: [address] [place] [address] Walk in hours from 10am - 12pm Open 08/02 [facility]: [address] [place] [id number] [address] [place] [id number] Hours: M-F 8am to 8pm Wednesday and Wednesday 9am to 5pm Prescriptions: No Action lamotrigine 200 mg tablet 200 mg PO DAILY Qty: 90 1RF amlodipine 5 mg tablet 5 mg PO BID 30 Days Qty: 60 1RF clonidine HCl 0.1 mg tablet 0.2 mg PO Q8H MDD 3 PRN (Reason: hypertensive emergency) Qty: 180 0RF fluoxetine 40 mg capsule 40 mg PO DAILY Qty: 90 1RF omeprazole 40 mg capsule,delayed release(DR/EC) 40 mg PO DAILY Qty: 90 1RF cyclobenzaprine 10 mg tablet 10 mg PO TID PRN (Reason: for muscle spasm) Qty: 90 1RF ibuprofen 600 mg tablet 600 mg PO Q8H PRN (Reason: for pain) Qty: 90 1RF gabapentin 800 mg tablet 800 mg PO TID Qty: 90 1RF valsartan 320 mg tablet 320 mg PO DAILY Qty: 90 3RF Referrals: Angel Centeno MD [Primary Care Provider] - Interventions: Swisher-Suicide Risk Severity Scale Last Done: 05/18/23 13:00 ED Discharge Assessment Last Done: 05/18/23 13:00 Discharge Date/Time: 05/18/23 13:01 Print Language: Nepali
[2023-05-18 11:37] LABS: MANUAL DIFF FLAG NO
[2023-05-18 11:39] LABS: Basophils Absolute Auto 0.1 X10*3/uL (0.0-0.2); Basophils Percent Auto 0.9 % (0-2); Eosinophils Percent Auto 0.7 % (0-4); Hematocrit 38.7 % (37.0-47.0); Hemoglobin 12.8 g/dl (12.0-16.0); Imm Gran Abs Auto 0.01 X10*3/uL (0.00-0.03); Imm Gran Pct Auto 0.2 % (0.0-0.4); Lymphocytes Absolute Auto 1.4 X10*3/uL (1.2-4.9); Lymphocytes Percent Auto 24.9 % (20-40); Mean Corpuscular HGB Conc 33.1 g/dl (31.0-35.0); Mean Corpuscular Hemoglobin 27.9 pg (27.0-33.0); Mean Corpuscular Volume 84.5 fL (80.0-98.0); Monocytes Absolute Auto 0.5 X10*3/uL (0.1-1.2); Monocytes Percent Auto 8.2 % (2-11); Neutrophils Absolute Auto 3.7 x10*3/uL (2.0-8.3); Neutrophils Percent Auto 65.1 % (45-73); Platelet Count 229 X10*3/uL (160-400); Red Blood Count 4.58 X10*6/uL (4.20-5.50); Red Cell Distribution Width 12.7 % (11.0-16.0); White Blood Count 5.6 X10*3/uL (4.8-10.8)
[2023-05-18 11:53] LABS: Anion Gap 13 (12-20); Blood Urea Nitrogen 10 mg/dL (9-16); Calcium 9.1 mg/dL (8.4-10.2); Carbon Dioxide 27 mmol/L (22-29); Chloride 105 mmol/L (96-108); Creatinine Clr Calc Pharmacy 57.9; Estimated Glomerular Filt Rate > 60; Glucose Random 94 mg/dL (60-115); Potassium 4.7 mmol/L (3.3-5.1); Sodium 140 mmol/L (135-145)
[2023-05-18 11:59] LABS: COVID-19 Test Negative (Negative); IDNOW Serial# 08D9AD1C
[2023-05-18 12:24] LABS: Amphetamine Screen Urine Not Detected (Not Detect); Barbiturates, Urine Not Detected (Not Detect); Benzodiazepines Screen Urine Not Detected (Not Detect); Cannabinoid Screen Urine Not Detected (Not Detect); Cocaine Screen Urine Not Detected (Not Detect); Fentanyl, urine Not Detected (Not Detect); Opiate Screen Urine Not Detected (Not Detect); Phencyclidine Screen Urine Not Detected (Not Detect)
== END 2023-05-18 13:01 | disposition home or self-care (01) ==
PROVIDERS: Emergency Provider Emergency Medicine; PCP Family Medicine
DX: F32.A Depression, unspecified (principal); F41.9 Anxiety disorder, unspecified; F43.20 Adjustment disorder, unspecified; I10 Essential (primary) hypertension; E78.00 Pure hypercholesterolemia, unspecified; Z87.891 Personal history of nicotine dependence; Z11.52 Encounter for screening for COVID-19; Z79.899 Other long term (current) drug therapy
CPT/HCPCS: 80048; 80307; 81001; 81003; 85025; 87635; 99284

== ENCOUNTER 2023-05-19 11:53 | Outpatient (AMB) | payer OTHER, SELFPAY ==
[2023-05-19 12:01] VITALS: BP 150/72; PULSE 78; O2SAT 97; BMI 22.9
--- NOTE | 2023-05-19 12:01 | MHC.PC.OV ---
Vital Signs 05/19/23 12:01 Height 5 ft 3 in Weight 129 lb 2 oz BMI 22.9 BP 150/72 H Blood Pressure Location Lt brachial Position Sitting Pulse 78 Pulse Source Pulse Oximeter Pulse Oximetry (%) 97 Oxygen Delivery Method Room Air Intake Visit Reasons: Discuss medications Intake Note: Patient is here to discuss her medications today. Some of her meds have not been filled lately. Allergies aripiprazole [From ABILIFY] Allergy (Intermediate, Verified 05/19/23 12:05) SHAKING bupropion [From WELLBUTRIN] Allergy (Intermediate, Verified 05/19/23 12:05) SHAKING, WEAKNESS atypical antipsychotics Allergy (Intermediate, Uncoded 05/19/23 12:05) SHAKING/FEET SWELLING Tobacco use date assessed: 05/19/23 Fall risk assessment: No Falls in past year Last assessed Fall Risk: 05/19/23 Dental Screening Dental Screen Date: 05/19/23 Did you have a dental visit in the last 12 months?: Yes Did you have a dental problem in the last 6 months where you did not have access to dental care?: No Was dental information given to patient?: Patient has dentist HPI Discuss medications HPI Details 67 y/o female presents today to discuss medications. Hx of anxiety/depression and currently has an acute adjustment disorder due to the passing of her sister. She is on clonidine 0.2mg. She had been on celexa and fluoxetine in the past. [facility] Medical History HTN, goal below 130/80 Personal history of nicotine dependence High cholesterol Anxiety and depression Hypertension, essential Surgical History History of tonsillectomy History of ankle surgery History of removal of cyst Family History Father No problems noted. Mother No problems noted. Son Hypertension Social History Household Members Other:: roomate Housing: House Alcohol intake: former Patient Tobacco Use Status: Former Tobacco user Quit Date: 2020 Years Smoked: (onset 11yo, smoked for 30yrs at 1ppd, 30pyh - quit 2019 using vape e-Cigarette/Vaping Use: Currently Using service: No Current occupational status: retired Current occupational exposures/hazards: No Cognitive needs: No Hearing needs: No Vision needs: No Review of Systems Const Denies chills, Denies fatigue, Denies fever(s), Denies headache(s) and Denies weakness ENT Denies dizziness and Denies headache(s) Card Denies dyspnea Resp Denies cough, Denies dyspnea, Denies wheezing and Denies other (shortness of breath) Musc Denies numbness and Denies tingling Neuro Denies dizziness, Denies headache(s), Denies numbness, Denies tingling and Denies weakness Psych Reports anxiety and Reports depression Endo Denies fatigue Aller/Immun Denies wheezing Physical exam (Primary Care) Vital Signs: Last Vital Signs Pulse 78 05/19/23 12:01 BP 150/72 H 05/19/23 12:01 Pulse Ox 97 05/19/23 12:01 Oxygen Delivery Method Room Air 05/19/23 12:01 BMI result Body Mass Index 22.9 Tobacco/Smoking Status: Tobacco use Status Tobacco use date assessed 05/19/23 05/19/23 12:09 Patient Tobacco Use Status Former Tobacco user 05/19/23 12:09 e-Cigarette/Vaping Use Currently Using 05/19/23 12:09 Const General: well developed; No acute distress Nutritional Appearance: well nourished Orientation/consciousness: patient oriented x3 HENMT Head: Yes normocephalic and Yes atraumatic Eyes General: appearance normal, both eyes and all related structures Pupils: Equal, round and reactive pupils present EOM: EOMs intact bilaterally Resp Effort & Inspection: normal respiratory effort Neuro General: patient oriented x3 and gait normal Cranial nerves: Yes Equal, round and reactive pupils present Psych Affect: normal affect Assessment and Plan Assessment & Plan (1) Acute adjustment disorder: Code(s): F43.20 - Adjustment disorder, unspecified Plan: Patient?with?history?of?major?depression?and?anxiety?now?an?acute?exacerbation/acute?adjustment?disorder?secondary?to?the?passing?of?her?sister?recently. She?had?been?on?fluoxetine?and?also?Celexa?in?the?past.??No?improvement?with?Celexa.??She?also?notes?that?she?had?been?put?on?lamotrigine?by?her?psych?med?provider?in?the?past.??No?longer?seeing?a?psych?med?provider. Will?restart?Celexa.??Will?give?her?hydroxyzine?for?acute?anxiety Patient?contracts?for?safety Already?has?a?therapist Close?follow-up;?will?see?patient?back?in?3?weeks.??Advised?her?to?call?me?sooner?if?worsening?or?not?improving (2) Anxiety and depression: Code(s): F41.9 - Anxiety disorder, unspecified; F32.9 - Major depressive disorder, single episode, unspecified Plan: As?above (3) HTN, goal below 140/90: Code(s): I10 - Essential (primary) hypertension Plan: Patient?with?hypertension,?likely?essential?hypertension?with?exacerbation?secondary?to?anxiety. Resume?valsartan?and?amlodipine?as?prescribed.??May?need?clonidine?as?well Will?follow Medications: New citalopram (Celexa) 10 mg PO DAILY 30 tabs 2RF 30 days hydroxyzine HCl 25 mg PO BEDTIME 30 tabs 1RF 30 days Refilled amlodipine 5 mg PO BID 30 days 60 tabs 1RF valsartan 320 mg PO DAILY 90 tabs 3RF I10 - Essential (primary) hypertension Coding Level of Care Code Est Pt Level 3 (94486) Diagnoses Acute adjustment disorder F43.20 Anxiety and depression F41.9; F32.9 HTN, goal below 140/90 I10
== END 2023-05-19 13:04 | disposition home or self-care (01) ==
PROVIDERS: PCP Family Medicine; Visit Provider Family Medicine
DX: F43.20 Adjustment disorder, unspecified (principal); F41.9 Anxiety disorder, unspecified; F32.9 Major depressive disorder, single episode, unspecified; I10 Essential (primary) hypertension
CPT/HCPCS: 99213

== ENCOUNTER 2023-06-15 09:40 | Outpatient (AMB) | payer OTHER, SELFPAY ==
[2023-06-15 09:46] VITALS: BP 132/78; PULSE 63; RESP 16; O2SAT 98; BMI 22.6
--- NOTE | 2023-06-15 09:46 | A.OFFPC_ITS ---
Vital Signs 06/15/23 09:46 Height 5 ft 3 in Weight 127 lb 8 oz BMI 22.6 BP 132/78 Blood Pressure Location Lt brachial Position Sitting Respiration 16 Pulse 63 Pulse Source Pulse Oximeter Pulse Oximetry (%) 98 Oxygen Delivery Method Room Air Intake Visit Reasons: follow up depression Intake Note: Patient is following up on depression today. Patient is asking for a referral for colonoscopy, and a refill of cyclobenzaprine. Allergies aripiprazole [From ABILIFY] Allergy (Intermediate, Verified 06/15/23 09:47) SHAKING bupropion [From WELLBUTRIN] Allergy (Intermediate, Verified 06/15/23 09:47) SHAKING, WEAKNESS atypical antipsychotics Allergy (Intermediate, Uncoded 06/15/23 09:47) SHAKING/FEET SWELLING Medication List - Last Reconciled 06/15/23 by Angel Centeno MD amlodipine 5 mg PO BID 30 days citalopram (Celexa) 10 mg PO DAILY 30 days clonidine HCl 0.2 mg (2 x 0.1 mg) PO Q8H PRN MDD 3 cyclobenzaprine 10 mg PO TID PRN gabapentin 800 mg PO TID hydroxyzine HCl 25 mg PO BEDTIME 30 days ibuprofen 600 mg PO Q8H PRN lamotrigine 200 mg PO DAILY omeprazole 40 mg PO DAILY valsartan 320 mg PO DAILY Tobacco use date assessed: 06/15/23 Fall risk assessment: No Falls in past year Last assessed Fall Risk: 06/15/23 Dental Screening Dental Screen Date: 06/15/23 Did you have a dental visit in the last 12 months?: Yes Did you have a dental problem in the last 6 months where you did not have access to dental care?: No Was dental information given to patient?: Patient has dentist HPI follow up depression HPI Details 68 y/o female presents to f/u acute adju stment disorder superimposed on anxiety and depression. Also f/u hypertension. Had resumed valsartan and amlodipine as prescribed for her blood pressures. Had restarted her Celexa and had given her hydroxyzine for acute anxiety. She had been put on lamotrigine by a psych med provider in the past. She reports depression improved but reports ongoing anxiety. Blood pressure today 132/78. She is on amlodipine 5mg b.i.d. and valsartan 320mg daily. She reports difficulty sleeping - she states she wakes up every 3 hours. [facility] Medical History HTN, goal below 130/80 Personal history of nicotine dependence High cholesterol Anxiety and depression Hypertension, essential Surgical History History of tonsillectomy History of ankle surgery History of removal of cyst Family History Father No problems noted. Mother No problems noted. Son Hypertension Household Members Other:: roomate Housing: House Alcohol intake: former Patient Tobacco Use Status: Former Tobacco user Quit Date: 2020 Years Smoked: (onset 11yo, smoked for 30yrs at 1ppd, 30pyh - quit 2019 using vape e-Cigarette/Vaping Use: Currently Using service: No Current occupational status: retired Current occupational exposures/hazards: No Cognitive needs: No Hearing needs: No Vision needs: No Questionnaire PHQ-9 Over the last 2 weeks, how often have you been bothered by any of the following problems? 1. Little interest or pleasure in doing things: not at all 2. Feeling down, depressed, or hopeless: not at all 3. Trouble falling or staying asleep, or sleeping too much: nearly every day 4. Feeling tired or having little energy: not at all 5. Poor appetite or overeating: not at all 6. Feeling bad about yourself - or that you are a failure or have let yourself or your family down: not at all 7. Trouble concentrating on things, such as reading the newspaper or watching television: not at all 8. Moving or speaking so slowly that other people could have noticed. Or the opposite - being so fidgety or restless that you have been moving around a lot more than usual: not at all 9. Thoughts that you would be better off or of hurting yourself in some way: not at all Total score: 3 Depression Screening Interpretation: Negative Depression Screening Done: Yes 26659 - PHQ-9 Billing: Yes Source: Developed by Drs. Moose Castillo, Aubrey Goyal and colleagues, with an educational enzo from [employer]. BERNICE-7 AMB Questionnaire BERNICE-7 Date BERNICE - 7 assessed: 06/15/23 Feeling nervous, anxious, or on edge: 3 = Nearly every day Not being able to stop or control worryin = Not at all Worrying too much about different things: 1 = Several days Trouble relaxin = Several days Being so restless that it is hard to sit still: 0 = Not at all Becoming easily annoyed or irritable: 1 = Several days Feeling afraid as if something awful might happen: 0 = Not at all Total BERNICE-7 score (0-4 normal; 5-9 mild; 10-14 moderate; 15-21 severe): 6 Source: Developed by Drs. Moose Castillo, Aubrey Goyal and colleagues, with an educational enzo from [employer]. BERNICE-7 Assessment Billing BERNICE-7 Assessment Tool: BERNICE-7 Assessment 16602 Review of Systems Const Denies chills, Denies fatigue, Denies fever(s), Denies headache(s) and Denies weakness ENT Denies dizziness and Denies headache(s) Card Denies chest pain, Denies lightheadedness, Denies dyspnea and Denies other (Palpitations) Resp Denies cough, Denies dyspnea, Denies wheezing and Denies other ( shortness of breath) Musc Denies numbness and Denies tingling Neuro Denies dizziness, Denies headache(s), Denies numbness, Denies tingling, Denies paresthesias and Denies weakness Psych Reports anxiety Endo Denies fatigue Aller/Immun Denies wheezing Physical exam (Primary Care) Vital Signs: Last Vital Signs Pulse 63 06/15/23 09:46 Resp 16 06/15/23 09:46 BP 132/78 06/15/23 09:46 Pulse Ox 98 06/15/23 09:46 Oxygen Delivery Method Room Air 06/15/23 09:46 BMI result Body Mass Index 22.6 Tobacco/Smoking Status: Tobacco use Status Tobacco use date assessed 05/19/23 05/19/23 12:09 Patient Tobacco Use Status Former Tobacco user 05/19/23 12:09 e-Cigarette/Vaping Use Currently Using 05/19/23 12:09 Depression Screening Interpretation: Negative Const General: no acute distress and well developed Nutritional Appearance: well nourished Orientation/consciousness: patient oriented x3 [facility] Head: Yes normocephalic and Yes atraumatic Eyes General: appearance normal, both eyes and all related structures Pupils: Equal, round and reactive pupils present EOM: EOMs intact bilaterally Resp Effort & Inspection: normal respiratory effort Auscultation: clear to auscultation bilaterally Cardio Rate: regular rate Rhythm: regular rhythm Heart sounds: S1 normal heart sound present, S2 normal heart sound present, no gallops, no murmurs and no rubs Neuro General: patient oriented x3 and gait normal Cranial nerves: Yes Equal, round and reactive pupils present Psych Affect: Anxious affect present Assessment and Plan Assessment & Plan (1) Anxiety and depression: Code(s): F41.9 - Anxiety disorder, unspecified; F32.9 - Major depressive disorder, single episode, unspecified Plan: Caution?much?improved?from?recent?ED?visit?for?acut e?adjustment?disorder?after??of?her?sister. Will?increase?Celexa?from?10?mg?daily?to?20?mg?daily. Encouraged?her?to?rely?on?hydroxyzine?for?anxiety?and?help?with?sleep?due?to?pro blems?with?anxiety Can?use?clonidine?for?more?severe?anxiety?or?for?hypertensive?crisis Follow-up?with?therapist. Therapist?plans?to?refer?her?to?a?psychiatrist?and?I?encouraged?this. (2) Hypertension, essential: Code(s): I10 - Essential (primary) hypertension Plan: Blood?pressure?is?controlled.??Goal?is?less?than?140/90 Continue?current?medication?regimen (3) Difficulty sleeping: Code(s): G47.9 - Sleep disorder, unspecified Plan: As?above (4) Lumbago of lumbar region with sciatica: Code(s): M54.40 - Lumbago with sciatica, unspecified side Plan: Follow-up?with?pain?management Can?use?gabapentin?and?p.r.n.?cyclobenzaprine Orders: Orders Microalbumin, Random (w Creat) Today I10 - Essential (primary) hypertension TSH reflex Free T4 Today Z00.00 - Encounter for general adult medical examination without abnormal findings Comprehensive [place]. Panel Fast Today Z00.00 - Encounter for general adult medical examination without abnormal findings Complete Blood Count Auto Diff Today Z00.00 - Encounter for general adult medical examination without abnormal findings Lipid Panel Today Z00.00 - Encounter for general adult medical examination without abnormal findings UA and rflx microscopic Today Z00.00 - Encounter for general adult medical examination without abnormal findings Medications: Changed From citalopram (Celexa) 10 mg PO DAILY 30 tabs 2RF 30 days To citalopram 20 mg PO DAILY 90 tabs 2RF 90 days From valsartan 320 mg PO DAILY 90 tabs 3RF I10 - Essential (primary) hypertension To valsartan 320 mg PO DAILY 90 tabs 3RF 90 days I10 - Essential (primary) hypertension From amlodipine 5 mg PO BID 30 days 60 tabs 1RF To amlodipine 5 mg PO BID 180 tabs 2RF 90 days From clonidine HCl 0.2 mg (2 x 0.1 mg) PO Q8H PRN 180 tabs 0RF hypertensive emergency MDD 3 I10 - Essential (primary) hypertension To clonidine HCl 0.2 mg (2 x 0.1 mg) PO Q8H PRN 180 tabs 1RF hypertensive emergency 30 days MDD 3 I10 - Essential (primary) hypertension Refilled gabapentin 800 mg PO TID 90 tabs 2RF M54.40 - Lumbago with sciatica, unspecified side hydroxyzine HCl 25 mg PO BEDTIME 30 tabs 2RF 30 days omeprazole 40 mg PO DAILY 90 caps 2RF cyclobenzaprine 10 mg PO TID PRN 90 tabs 1RF for muscle spasm M53.3 - Sacrococcygeal disorders, not elsewhere classified, M54.40 - Lumbago with sciatica, unspecified side Discontinued lamotrigine Discontinued Reason: Doctor's Order 200 mg PO DAILY 90 tabs 1RF F32.9 - Major depressive disorder, single episode, unspecified, F41.9 - Anxiety disorder, unspecified Coding Level of Care Code Est Pt Level 4 (74521) Diagnoses Anxiety and depression F41.9; F32.9 Hypertension, essential I10 Difficulty sleeping G47.9 Lumbago of lumbar region with sciatica M54.40 Additional Codes BERNICE-7 Assessment Billing - BERNICE-7 Assessment Tool: BERNICE-7 Assessment 89105 ([id number])
== END 2023-06-15 10:23 | disposition home or self-care (01) ==
PROVIDERS: PCP Family Medicine; Visit Provider Family Medicine
DX: F41.9 Anxiety disorder, unspecified (principal); I10 Essential (primary) hypertension; G47.9 Sleep disorder, unspecified; F32.9 Major depressive disorder, single episode, unspecified; M54.40 Lumbago with sciatica, unspecified side
CPT/HCPCS: 99214

== ENCOUNTER 2023-08-30 11:05 | Outpatient (REF) | payer OTHER, SELFPAY ==
--- NOTE | ~2023-08-30 | XR_ITS ---
EXAMINATION: XR HIP, RIGHT CLINICAL INFORMATION: Unilateral primary osteoarthritis, right hip COMPARISON: AP pelvis 04/03/2022 TECHNIQUE: Two views of the right hip. FINDINGS: No fracture. There is complete loss of the superior-lateral aspect of the right hip joint space with [id number] appearance. Marginal osteophyte extends off the inferior aspect of the femoral head. There is subchondral sclerosis within the femoral head. Subchondral cystic changes are seen within the acetabulum. Heterotopic bone formation is seen adjacent to the femoral head.. There is an electronic device projected over the right ilium with associated leads extending superiorly over the lumbar spine. XR/XR hip RT min 2V IMPRESSION: Severe osteoarthritis of the right hip.
[2023-08-30 11:29] LABS: MANUAL DIFF FLAG NO
[2023-08-30 12:44] LABS: Basophils Absolute Auto 0.1 X10*3/uL (0.0-0.2); Basophils Percent Auto 0.9 % (0-2); Eosinophils Absolute Auto 0.2 X10*3/uL (0.0-0.4); Eosinophils Percent Auto 3.2 % (0-4); Hematocrit 42.1 % (37.0-47.0); Hemoglobin 13.6 g/dl (12.0-16.0); Imm Gran Abs Auto 0.02 X10*3/uL (0.00-0.03); Imm Gran Pct Auto 0.4 % (0.0-0.4); Lymphocytes Absolute Auto 1.5 X10*3/uL (1.2-4.9); Lymphocytes Percent Auto 29.2 % (20-40); Mean Corpuscular HGB Conc 32.3 g/dl (31.0-35.0); Mean Corpuscular Hemoglobin 27.2 pg (27.0-33.0); Mean Corpuscular Volume 84.2 fL (80.0-98.0); Mean Platelet Volume 10.5 fL (9.4-12.3); Monocytes Absolute Auto 0.5 X10*3/uL (0.1-1.2); Monocytes Percent Auto 9.7 % (2-11); Neutrophils Percent Auto 56.6 % (45-73); Platelet Count 260 X10*3/uL (160-400); Red Cell Distribution Width 12.5 % (11.0-16.0); White Blood Count 5.3 X10*3/uL (4.8-10.8)
[2023-08-30 13:24] LABS: Alanine Aminotransferase 14 U/L (0-31); Albumin Level 4.2 g/dL (3.5-5.0); Alkaline Phosphatase 75 U/L (39-117); Anion Gap 13 (12-20); Aspartate Amino Transferase 19 U/L (5-31); Bilirubin Total 0.3 mg/dL (0.0-1.0); Blood Urea Nitrogen 10 mg/dL (9-16); Calcium 9.4 mg/dL (8.4-10.2); Carbon Dioxide 32 mmol/L (22-29); Chloride 99 mmol/L (96-108); Cholesterol 302 mg/dL (<200); Estimated Glomerular Filt Rate > 60; Glucose Fasting 92 mg/dL (60-99); HDL Cholesterol 79 mg/dL (>40); LDL Cholesterol Calculated 182 mg/dL (<100); Potassium 4.8 mmol/L (3.3-5.1); Sodium 139 mmol/L (135-145); Total Protein 7.1 g/dL (6.5-8.0); Triglycerides 205 mg/dL (<150)
[2023-08-30 13:31] LABS: TSH reflex Free T4 3.36 uIU/mL (0.32-4.0)
[2023-08-30 13:46] LABS: Appearance Urine Clear; Color Urine Yellow; Glucose Urine UA Negative (Negative); Leukocyte Esterase Urine Negative (Negative); Nitrite Urine Negative (Negative); PH 7.5 (5.0-9.0); Urine Blood Negative (Negative); Urine Ketones Negative (Negative); Urine Protein Negative (Neg-Trace)
[2023-08-30 14:44] LABS: Creatinine Urine 51.56 mg/dL; Microalbumin Urine < 5.0 mg/L
== END 2023-08-30 11:06 | disposition home or self-care (01) ==
LOC: HO.LAB 11:05
PROVIDERS: PCP Family Medicine; Visit Provider Anesthesiology
DX: Z00.00 Encounter for general adult medical examination without abnormal findings (principal); I10 Essential (primary) hypertension; M16.11 Unilateral primary osteoarthritis, right hip; M25.551 Pain in right hip
CPT/HCPCS: 36415; 73502; 80053; 80061; 81003; 82043; 82570; 84443; 85025

== ENCOUNTER 2023-08-31 11:03 | Outpatient (AMB) | payer OTHER, SELFPAY ==
[2023-08-31 11:16] VITALS: BP 132/80; PULSE 79; O2SAT 99; BMI 23.5
--- NOTE | 2023-08-31 11:16 | A.OFFPC_ITS ---
Vital Signs 08/31/23 11:16 Height 5 ft 3 in Weight 132 lb 8 oz BMI 23.5 BP 132/80 Blood Pressure Location Lt brachial Position Sitting Pulse 79 Pulse Source Pulse Oximeter Pulse Oximetry (%) 99 Oxygen Delivery Method Room Air Intake Visit Reasons: CPE with f/u labs and health maint Intake Note: Patient is here for physical today, and follow up on labs and health maintenanc e. Patient is requesting a placard application, and bubble pack of medication. Allergies aripiprazole [From ABILIFY] Allergy (Intermediate, Verified 08/31/23 11:21) SHAKING bupropion [From WELLBUTRIN] Allergy (Intermediate, Verified 08/31/23 11:21) SHAKING, WEAKNESS atypical antipsychotics Allergy (Intermediate, Uncoded 08/31/23 11:21) SHAKING/FEET SWELLING Tobacco use date assessed: 08/31/23 Fall risk assessment: No Falls in past year Last assessed Fall Risk: 08/31/23 Dental Screening Dental Screen Date: 08/31/23 Did you have a dental visit in the last 12 months?: Yes Did you have a dental problem in the last 6 months where you did not have access to dental care?: No Was dental information given to patient?: Patient has dentist HPI CPE with f/u labs and health maint HPI Details 68 y/o female presents for a CPE with f/ u labs and health maintenance. Labs were drawn 08/30/23. Reviewed labs with pt. Triglycerides 205. TC 302. LDL 182. HDL 79. She notes cholesterol had been high before in the past. Blood pressure today 132/80. She is on amlodipine 5mg b.i.d, valsartan 320mg daily. Pt has complaints of R hip pain and difficulty walking. [facility] Medical History HTN, goal below 130/80 Personal history of nicotine dependence High cholesterol Anxiety and depression Hypertension, essential Surgical History History of tonsillectomy History of ankle surgery History of removal of cyst Family History Father No problems noted. Mother No problems noted. Son Hypertension Social History Household Members Other:: roomate Housing: House Alcohol intake: former Patient Tobacco Use Status: Former Tobacco user Quit Date: 2020 Years Smoked: (onset 11yo, smoked for 30yrs at 1ppd, 30pyh - quit 2019 using vape e-Cigarette/Vaping Use: Currently Using service: No Current occupational status: retired Current occupational exposures/hazards: No Cognitive needs: No Hearing needs: No Vision needs: No Questionnaire PHQ-9 Over the last 2 weeks, how often have you been bothered by any of the following problems? 1. Little interest or pleasure in doing things: not at all 2. Feeling down, depressed, or hopeless: not at all 3. Trouble falling or staying asleep, or sleeping too much: not at all 4. Feeling tired or having little energy: not at all 5. Poor appetite or overeating: not at all 6. Feeling bad about yourself - or that you are a failure or have let yourself or your family down: not at all 7. Trouble concentrating on things, such as reading the newspaper or watching television: not at all 8. Moving or speaking so slowly that other people could have noticed. Or the opposite - being so fidgety or restless that you have been moving around a lot more than usual: not at all 9. Thoughts that you would be better off or of hurting yourself in some way: not at all Total score: 0 Source: Developed by Drs. Moose Castillo, Christina Schmidt, Aubrey Min and colleagues, with an educational enzo from [employer]. Thrive Questionnaire Date Thrive assessed: 08/31/23 I am a: Patient What is your living situation today?: I have a steady place to live Within the past 12 months, did the food you bought not last and you didn't have the money to get more?: Sometimes True Within the past 12 months, did you worry whether your food would run out before you got money to buy more?: Sometimes True Do you have trouble paying for medicines?: No Do you have trouble getting transportation to medical appointments?: No Do you have trouble paying your heating and electricity bill?: No Do you have trouble taking care of your child, family member or friend?: No Do you have trouble with day-to-day activities such as bathing, preparing meals, shopping, managing finances, etc.?: No Are you currently unemployed and looking for a job?: No Are you interested in more education?: No THRIVE Score: 2 AUDIT C Alcohol Use Questionnaire (AUDIT-C) 1. How often do you have a drink containing alcohol?: Never 3. How often do you have six or more drinks on one occasion?: Never Total Score: 0 BERNICE-7 AMB Questionnaire BERNICE-7 Date BERNICE - 7 assessed: 08/31/23 Feeling nervous, anxious, or on edge: 0 = Not at all Not being able to stop or control worryin = Not at all Worrying too much about different things: 0 = Not at all Trouble relaxin = Not at all Being so restless that it is hard to sit still: 0 = Not at all Becoming easily annoyed or irritable: 0 = Not at all Source: Developed by Drs. Moose Castillo, Christina Schmidt, Aubrey Min and colleagues, with an educational enzo from [employer]. Review of Systems Const Denies chills, Denies fatigue, Denies fever(s), Denies headache(s) and Denies weakness Eyes Denies change in vision ENT Denies dizziness, Denies headache(s), Denies hearing loss, Denies nasal congestion, Denies sinus pain, Denies sinus pressure and Denies sore throat Card Denies chest pain, Denies lightheadedness, Denies dyspnea and Denies other (palpitations) Resp Denies cough, Denies dyspnea and Denies wheezing GI Denies abdominal pain, Denies melena, Denies hematochezia, Denies change in bowel habits, Denies dyspepsia and Denies nausea Denies hematuria and Denies dysuria Musc Denies abnormal gait, Denies myalgias, Denies arthralgias, Denies numbness and Denies tingling Skin/Breast Denies rash, Denies unusual bruising and Denies wounds Neuro Denies abnormal gait, Denies dizziness, Denies headache(s), Denies memory loss, Denies numbness, Denies Sensory deficit (Neuro), Denies tingling and Denies weakness Psych Denies anxiety, Denies depression and Denies memory loss Endo Denies cold intolerance, Denies fatigue, Denies heat intolerance, Denies polydipsia and Denies polyuria Jose/Lymph Denies easy bleeding and Denies easy bruising Aller/Immun Denies wheezing Physical exam (Primary Care) Vital Signs: Last Vital Signs Pulse 79 08/31/23 11:16 BP 132/80 08/31/23 11:16 Pulse Ox 99 08/31/23 11:16 Oxygen Delivery Method Room Air 08/31/23 11:16 BMI result Body Mass Index 23.5 Tobacco/Smoking Status: Tobacco use Status Tobacco use date assessed 08/31/23 08/31/23 11:30 Patient Tobacco Use Status Former Tobacco user 08/31/23 11:20 e-Cigarette/Vaping Use Currently Using 08/31/23 11:20 PHQ-9: PHQ-9 Score PHQ-9: Total score 0 08/31/23 11:32 Thrive Assessment: Date of Thrive Assessment Date Thrive assessed 08/31/23 08/31/23 11:32 Const General: no acute distress, well developed, alert and awake Nutritional Appearance: well nourished Orientation/consciousness: patient oriented x3 HENMT Head: Yes normocephalic and Yes atraumatic Ears: hearing grossly normal bilaterally and TM's normal bilaterally General nose exam: Normal external nose present and Normal nares present Mouth: Normal oral and palatal mucosa present and moist mucous membranes Teeth and gingiva: dentition normal Throat: Yes posterior oropharynx normal Eyes General: appearance normal, both eyes and all related structures Pupils: Equal, round and reactive pupils present and Pupil accommodation reflex normal EOM: EOMs intact bilaterally Neck Neck: Yes normal visual inspection, Yes no lymphadenopathy and Yes trachea midline Thyroid: Thyroid normal Carotids: no bruits Lymphatic: no lymphadenopathy noted Chest Chest palpation & inspection: normal inspection of the chest Resp Effort & Inspection: normal respiratory effort Auscultation: clear to auscultation bilaterally Cardio Rate: regular rate Rhythm: regular rhythm Heart sounds: S1 normal heart sound present, S2 normal heart sound present, no gallops, no murmurs and no rubs Bruits: no abdominal aortic bruits and no carotid bruits GI Palpation (GI): No Abdominal aortic bruit present, Soft to palpation, nontender, No hepatosplenomegaly present and No Rebound tenderness present Auscultation: normal bowel sounds General: Yes no CVA tenderness Back/Spine/Pelvis Back: no CVA tenderness Cervical Spine: cervical ROM normal and No Cervical spine tenderness Thoracic/Lumbar Spine: thoraco-lumbar ROM normal, No pain with thoraco-lumbar ROM, No thoracic spinal tenderness and No lumbar spinal tenderness Skin Lesions: no lesions Rashes: no rashes Trauma: no lacerations or abrasions Wounds: no wounds Nails: normal Neuro General: patient oriented x3 Cranial nerves: Yes Equal, round and reactive pupils present Cognition (Neuro): normal cognition Gait exam (Neuro): Normal gait present Motor exam (neuro): 5/5 motor strength present throughout Sensory Exam: No Sensory deficit (Neuro) Deep tendon reflexes (DTR's): Right patellar reflex intensity grade: 2+ and Left patellar reflex intensity grade: 2+ Extrem General: Yes normal to inspection and No edema Psych Appearance: grossly normal Affect: normal affect Attitude: cooperative Thought process: Normal thought process present Assessment and Plan Assessment & Plan (1) Adult general medical examination: Code(s): Z00.00 - Encounter for general adult medical examination without abnormal find ings Plan: A?68-year-old?female?presents?for?complete?physical?exam Encouraged?healthy?diet?with?active?lifestyle? (2) Hyperlipidemia: Code(s): E78.5 - Hyperlipidemia, unspecified Plan: LDL?cholesterol?is?quite?high HDL?is?desirably?high?but?may?not?be?fully?protective Recommend?she?work?on?a?diet?lower?in?saturated?fats.??She?notes?that?she?eats?l ots?of?ice?cream?and?dairy. Will?repeat?labs?in?about?3?months?and?follow-up.??If?s he?is?unable?to?make?significant?changes,?we?agreed?that?we?would?consider?a?sta tin?medication. 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 If?unable?to?get?significant?relief,?would?give?her?a?permanent?placard?in?th e?future (6) Screening for colon cancer: Code(s): Z12.11 - Encounter for screening for malignant neoplasm of colon Plan: Overdue?for?colonoscopy-referred?to?Gastroenterology (7) Screening for osteoporosis: Code(s): Z13.820 - Encounter for screening for osteoporosis Plan: Overdue?for?bone?density?testing Ordered (8) Former smoker: Code(s): Z87.891 - Personal history of nicotine dependence Plan: Has?had?low-dose?CT?scanning?in?the?past?and?we?will?continue?this.??Ordered Orders: Orders MM tomosynthesis screening BI Today Z12.31 - Encounter for screening mammogram for malignant neoplasm of breast XR DEXA axial skeleton Today M81.0 - Age-related osteoporosis without current pathological fracture Referrals Gastroenterology Referral Z12.11 - Encounter for screening for malignant neoplasm of colon Medications: Discontinued nirmatrelvir-ritonavir 300 mg (150 mg x 2)-100 mg (Paxlovid) Discontinued Reason: Patient no longer taking take TWO 150 mg tablets of nirmatrelvir with ONE 100 mg tablet of ritonavir twice daily for 5 days PO 30 ea 0RF Coding Level of Care Code Est Pt Level 3 (62564) Est Pt Prev Care >65y(41499) Diagnoses Adult general medical examination Z00.00 Hyperlipidemia E78.5 Hypertension, essential I10 Breast cancer screening by mammogram Z12.31 Right hip pain M25.551 Screening for colon cancer Z12.11 Screening for osteoporosis Z13.820 Former smoker Z87.891
== END 2023-08-31 12:00 | disposition home or self-care (01) ==
PROVIDERS: PCP Family Medicine; Visit Provider Family Medicine
DX: Z00.00 Encounter for general adult medical examination without abnormal findings (principal); E78.5 Hyperlipidemia, unspecified; I10 Essential (primary) hypertension; M25.551 Pain in right hip; Z12.31 Encounter for screening mammogram for malignant neoplasm of breast; Z12.11 Encounter for screening for malignant neoplasm of colon; Z13.820 Encounter for screening for osteoporosis; Z87.891 Personal history of nicotine dependence
CPT/HCPCS: 99397

== ENCOUNTER 2023-09-08 09:30 | Outpatient (AMB) | payer OTHER, SELFPAY ==
--- NOTE | 2023-09-08 09:53 | MHC.OFFVIS ---
Intake Vital Signs 09/08/23 09:54 Height 5 ft 3 in Weight 132 lb 3 oz BMI 23.4 BP 135/83 Blood Pressure Location Lt brachial Position Sitting Respiration 16 Pulse 83 Pulse Source Pulse Oximeter Temp 99 F Pulse Oximetry (%) 99 Oxygen Delivery Method Room Air Intake Visit Reasons: Hip Xray Results/Injection Discussion Allergies aripiprazole [From ABILIFY] Allergy (Intermediate, Verified 09/08/23 09:53) SHAKING bupropion [From WELLBUTRIN] Allergy (Intermediate, Verified 09/08/23 09:53) SHAKING, WEAKNESS atypical antipsychotics Allergy (Intermediate, Uncoded 08/31/23 11:21) SHAKING/FEET SWELLING HPI HPI Comments History of Present Illness Details Ping is back in my office to discuss the results of the x-ray. My worse suspicions were confirmed. The patient has severe so called bone on bone right hip joint arthritis. I offered this patient to perform therapeutic right hip steroid injection. I also offered her to refer her to Orthopedic surgery. I will schedule her for the appointment with Dr. Wall. Two months ago she came with new complaint on pain in the right groin right hip with radiation of the pain down the thigh and lower leg all the way to her ankle but not below the level of that side. She denies that pain starts from the lumbar spine there is no connection to the back pain. She was a subject of implantation of spinal cord stimulator [employer] on 09/11/22 for the treatment of coccydynia. Patient reports 80 % pain relief. She reports improving mobility, better ability to sit, stand and walk and improving quality of life with decreased pain. PRIOR : Complains on coccydynia. She went for trial of [employer] spinal cord stimulator. During the trial I performed bilateral lumbar position 16 contact electrodes position in the posterior epidural space from L5 to lower border of L3 vertebra as. Original intention was to advanced does electrodes into the caudal canal however the retrograde advancement proved to be very difficult. Nevertheless the patient reported excellent pain relief. She reported stimulation heat the spot immediately after the insertion of the electrodes after she woke up in the PACU. She is requesting me to perform implantation of the SCS [employer]. I will perform this procedure as planned under sedation. She reported that pelvic floor is on fire. She reported significant sensation of burning aching pins and needles and stabbing pain in the projection of her coccyx. it radiates into her kylee -area. She reported history of coccyx fracture 30 years ago. However her pain started only 4 years ago. She was evaluated by [facility] and [facility] in [place]. She reported that [facility] pain management performed ganglion impar injections which were initially very helpful but then they faded ineffectiveness. She got physical therapy and chiropractic manipulations she is in chiropractic manipulation presently for 1 month now. Reports minimal help improvement. She tried acupuncture in February of this year 2021 and reported no pain improvement. She had some images performed for her lumbar area and pelvis. [facility] Medical History HTN, goal below 130/80 Personal history of nicotine dependence High cholesterol Anxiety and depression Hypertension, essential Surgical History History of tonsillectomy History of ankle surgery History of removal of cyst Family History Father No problems noted. Mother No problems noted. Son Hypertension Social History Household Members Other:: roomate Housing: House Alcohol intake: former Patient Tobacco Use Status: Former Tobacco user Quit Date: 2020 Years Smoked: (onset 11yo, smoked for 30yrs at 1ppd, 30pyh - quit 2020 using vape e-Cigarette/Vaping Use: Currently Using service: No Current occupational status: retired Current occupational exposures/hazards: No Cognitive needs: No Hearing needs: No Vision needs: No Review of Systems Const All systems reviewed & are unremarkable except as noted in HPI and below Physical Exam Vital Signs: Last Vital Signs Temp 99 F 09/08/23 09:54 Pulse 83 09/08/23 09:54 Resp 16 09/08/23 09:54 BP 135/83 09/08/23 09:54 Pulse Ox 99 09/08/23 09:54 Oxygen Delivery Method Room Air 09/08/23 09:54 BMI result Body Mass Index 23.4 Const General: cooperative, healthy appearing, comfortable, no acute distress, well developed, alert, awake and Physically active Orientation/consciousness: patient oriented x3 HEENT Head: Yes normal to inspection, Yes normocephalic and Yes atraumatic Neck Neck: Yes normal visual inspection, Yes full ROM and Yes no lymphadenopathy Resp Effort & Inspection: normal respiratory effort and able to speak in complete sentences GI Inspection: Yes normal to inspection Back/Spine/Pelvis Other: Tenderness to palpation in the projection of the coccygeal bones is very mild she reports the pain in surrounding area which probably justifies the pelvic pain. Tests for sacroiliac joint pathology such as: Chavo test, Gaenslen test, negative. Cervical Spine: normal cervical lordosis and cervical ROM normal Thoracic/Lumbar Spine: thoracic and lumbar spine normal to inspection Neuro General: patient oriented x3, gait normal, tone normal, moves all extremities, no focal motor deficits and normal sensation to monofilament Extrem Other: Lateral rotation of the hip on the right as well as prolong standing and walking aggravate the pain in the groin. Lateral pain Pain radiates from the trochanter all the way down to the ankle on the right. Psych Appearance: grossly normal and well kempt Mental Status: mental status grossly normal Speech and movement: Normal speech and movement present and Clear speech present Affect: normal affect Attitude: cooperative Thought process: Normal thought process present Assessment & Plan Assessment & Plan (1) Osteoarthritis of right hip: Code(s): M16.11 - Unilateral primary osteoarthritis, right hip (2) Right hip pain: Code(s): M25.551 - Pain in right hip (3) Trochanteric bursitis, right hip: Code(s): M70.61 - Trochanteric bursitis, right hip (4) Coccydynia: Code(s): M53.3 - Sacrococcygeal disorders, not elsewhere classified (5) Chronic pelvic pain in female: Code(s): R10.2 - Pelvic and perineal pain; G89.29 - Other chronic pain Plan Patient is status post implantation of spinal cord stimulator [employer] on 09/11/22 for the treatment of coccydynia. Patient reports 80% pain relief with improving mobility, better ability to sit, stand and walk and improving quality of life with decreased pain. She is here with a new complaint. She complains on pain in the right hip, pain in the right groin with walking and standing pain radiates down to the right ankle. Right hip x-ray demonstrated severe bone on bone osteoarthritis. I will schedule her for the right hip steroid injection. I also will send her for the consult to orthopedic surgeon Dr. Wall. Orders: Referrals Orthopedics Referral M16.11 - Unilateral primary osteoarthritis, right hip, M25.551 - Pain in right hip Coding Level of Care Code Est Pt Level 3 (85825) Diagnoses Osteoarthritis of right hip M16.11 Right hip pain M25.551 Trochanteric bursitis, right hip M70.61 Coccydynia M53.3 Chronic pelvic pain in female R10.2; G89.29
[2023-09-08 09:54] VITALS: BP 135/83; PULSE 83; RESP 16; TEMP 37.2; O2SAT 99; BMI 23.4
== END 2023-09-08 10:15 | disposition home or self-care (01) ==
PROVIDERS: PCP Family Medicine; Visit Provider Anesthesiology
DX: M16.11 Unilateral primary osteoarthritis, right hip (principal); M25.551 Pain in right hip; M70.61 Trochanteric bursitis, right hip; M53.3 Sacrococcygeal disorders, not elsewhere classified; R10.2 Pelvic and perineal pain; G89.29 Other chronic pain
CPT/HCPCS: 99213

== ENCOUNTER → 2023-09-08 09:30 | Outpatient (BNVA) | payer OTHER, SELFPAY | PROVIDERS: PCP Family Medicine; Visit Provider Anesthesiology | DX: M16.11 Unilateral primary osteoarthritis, right hip (principal); M25.551 Pain in right hip; M70.61 Trochanteric bursitis, right hip; M53.3 Sacrococcygeal disorders, not elsewhere classified; R10.2 Pelvic and perineal pain; G89.29 Other chronic pain | CPT/HCPCS: 99212 ==

== ENCOUNTER 2023-09-23 12:32 | Outpatient (REF) | payer OTHER, SELFPAY ==
--- NOTE | ~2023-09-23 | XR_ITS ---
EXAMINATION: XR PELVIS CLINICAL INFORMATION: Pain in unspecified hip COMPARISON: Pelvis 04/03/2022 TECHNIQUE: AP view of the pelvis. FINDINGS: No fracture. The left hip joint is maintained. There is severe narrowing of the superior-lateral aspect of the joint space of the right hip with [id number] appearance and subchondral sclerosis and inferior osteophyte extending off the femoral head. Alignment is anatomic. Sacroiliac joints are symmetric. The pubic symphysis is normal. Electronic pack projects over the right hemipelvis with leads extending to the superior endplate of L4. XR/XR pelvis 1-2V IMPRESSION: Severe osteoarthritis of the right hip.
== END 2023-09-23 12:33 | disposition home or self-care (01) ==
LOC: HO.HOSX 12:32
PROVIDERS: Visit Provider Orthopaedic Surgery
DX: M16.11 Unilateral primary osteoarthritis, right hip (principal)
CPT/HCPCS: 72170; 99202

== ENCOUNTER 2023-09-23 13:07 | Outpatient (AMB) | payer OTHER, SELFPAY ==
--- NOTE | 2023-09-23 13:25 | MHC.OFFVIS ---
Intake Vital Signs 09/23/23 13:26 Height 5 ft 3 in Weight 132 lb BMI 23.4 Intake Visit Reasons: New Pt - Right Hip OA Intake Note: Ping is a 68 year old female who presents today for a new patient visit for evaluation of her right hip OA. She has previously been seen with Pain Management and is scheduled with them for an injection on 11/03/23. Patient reports that she has had ongoing pain on the lateral aspect of the hip for about 4 months now. She explains that her pain increases with increased activity and the right knee occasionally gives out. Allergies aripiprazole [From ABILIFY] Allergy (Intermediate, Verified 09/08/23 09:53) SHAKING bupropion [From WELLBUTRIN] Allergy (Intermediate, Verified 09/08/23 09:53) SHAKING, WEAKNESS atypical antipsychotics Allergy (Intermediate, Uncoded 08/31/23 11:21) SHAKING/FEET SWELLING HPI New Pt - Right Hip OA HPI Details This is a 68 yo F with years of right hip pain that had been steadily worsening for the past 6 months. She [place] [facility] [place]. She has lumbar sciatic chronic pain and has been treated with spinal cord stimulation. Now she describes severe difficulty ambulating. She has difficulty with basic daily tasks such as getting into and out a chair or a car. She is active and would like to be able to get through her ADLs without pain. [facility] Medical History HTN, goal below 130/80 Personal history of nicotine dependence High cholesterol Anxiety and depression Hypertension, essential Surgical History History of tonsillectomy History of ankle surgery History of removal of cyst Family History Father No problems noted. Mother No problems noted. Son Hypertension Social History Household Members Other:: roomate Housing: House Alcohol intake: former Patient Tobacco Use Status: Former Tobacco user Quit Date: 2020 Years Smoked: (onset 11yo, smoked for 30yrs at 1ppd, 30pyh - quit 2019 using vape e-Cigarette/Vaping Use: Currently Using service: No Current occupational status: retired Current occupational exposures/hazards: No Cognitive needs: No Hearing needs: No Vision needs: No Review of Systems Const All systems reviewed & are unremarkable except as noted in HPI and below Eyes Reports no additional complaints ENT Reports no additional complaints Card Reports no additional complaints Resp Reports no additional complaints GI Reports no additional complaints Musc Details: knee pain Reports as per HPI Skin/Breast Reports system reviewed and no additional complaints, except as documented Neuro Reports no additional complaints and Reports as per HPI Psych Reports no additional complaints Physical Exam Vital Signs: BMI result Body Mass Index 23.4 Const General: cooperative, healthy appearing, no acute distress, well developed and alert HEENT Head: Yes normal to inspection, Yes normocephalic and Yes atraumatic Mouth: moist mucous membranes Eyes General: appearance normal, both eyes and all related structures EOM: EOMs intact bilaterally Chest Other: no audible wheezing. Resp Other: No audible wheezing Effort & Inspection: normal respiratory effort Cardio Other: Radial pulse palpable with no rythmic abnormalities Back/Spine/Pelvis Cervical Spine: normal cervical lordosis Skin General skin exam: no rashes or lesions noted Neuro General: no focal motor deficits Extrem Other: Severe gait antalgia + Impingement test on the right +[place]field, right Psych Appearance: grossly normal and well kempt Mental Status: mental status grossly normal Speech and movement: Normal speech and movement present Affect: normal affect Attitude: cooperative Results Reviewed Results Reviewed: I personally reviewed relevant radiographs. Severe right hip OA with progression compared to 2021 Assessment & Plan Assessment & Plan (1) Osteoarthritis of right hip: Code(s): M16.11 - Unilateral primary osteoarthritis, right hip Plan: This is a 68-year-old woman with progressive osteoarthritis of the right hip. She has failed NSAIDs, activity modification, spinal cord stimulation and feels the quality of her life is diminished. Her radiographs demonstrate progression of her right hip arthritis. She is good candidate for arthroplasty. I discussed the options with her including, but limited to injections, the therapy non operative management. I think she would benefit from surgery and she is in agreement. I discussed with her the risks of surgery including, but not limited to the risk of pain, infection, leg length discrepancy, dislocation, nerve damage as well as potential medical complications. She expressed understanding we will proceed forward accordingly. Orders: Orders XR pelvis 1-2V Today M25.559 - Pain in unspecified hip Coding Level of Care Code New Pt Level 4 (38638) Diagnoses Osteoarthritis of right hip M16.11
[2023-09-23 13:26] VITALS: BMI 23.4
== END 2023-09-23 14:22 | disposition home or self-care (01) ==
PROVIDERS: PCP Family Medicine; Visit Provider Orthopaedic Surgery
DX: M16.11 Unilateral primary osteoarthritis, right hip (principal)
CPT/HCPCS: 99204

== ENCOUNTER 2023-10-12 06:11 | Outpatient (REF) | payer OTHER, SELFPAY ==
--- NOTE | ~2023-10-12 | FL_ITS ---
EXAMINATION: XR FLUOROSCOPY WITH IMAGES CLINICAL INFORMATION: Right hip pain. COMPARISON: Pelvic radiographs dated 09/30/2023. TECHNIQUE: Fluoroscopy Supervised By: Dr. Frantz Lynn. Fluoroscopy Time: 0.2 minutes. Cumulative Dose: 17.7 mGy. DAP: 0.309 mGym2. Images: 1. FINDINGS: The image submitted shows an injection needle with tip situated within the superior right acetabular joint space, with injected contrast in the right hip joint. FL/FL guidance in treatment room IMPRESSION: Intraoperative fluoroscopic guidance is provided during right hip pain management procedure. Please see the patient's Operative Report for full procedural details.
== END 2023-10-12 06:12 | disposition home or self-care (01) ==
LOC: CF 06:11
PROVIDERS: Visit Provider Anesthesiology
DX: M16.11 Unilateral primary osteoarthritis, right hip (principal); M70.61 Trochanteric bursitis, right hip; M53.3 Sacrococcygeal disorders, not elsewhere classified; R10.2 Pelvic and perineal pain; G89.29 Other chronic pain
CPT/HCPCS: 20610; J2795; J3301; Q9967

== ENCOUNTER 2023-10-12 10:32 | Outpatient (AMB) | payer OTHER, SELFPAY ==
[2023-10-12 11:29] VITALS: BP 128/80; BP 150/80; PULSE 78; PULSE 80; RESP 18; O2SAT 98; BMI 23.4
--- NOTE | 2023-10-12 11:29 | MHC.OFFVIS ---
Intake Vital Signs 10/12/23 11:29 10/12/23 11:29 Height 5 ft 3 in 5 ft 3 in Weight 132 lb BMI 23.4 BP 128/80 150/80 H Blood Pressure Location Lt brachial Lt brachial Position Sitting Sitting Respiration 18 18 Pulse 78 80 Pulse Source Pulse Oximeter Pulse Oximeter Pulse Oximetry (%) 98 98 Oxygen Delivery Method Room Air Room Air Comment Pre-Op Post-Op Intake Visit Reasons: RIGHT HIP INJECTION Allergies aripiprazole [From ABILIFY] Allergy (Intermediate, Verified 09/08/23 09:53) SHAKING bupropion [From WELLBUTRIN] Allergy (Intermediate, Verified 09/08/23 09:53) SHAKING, WEAKNESS atypical antipsychotics Allergy (Intermediate, Uncoded 08/31/23 11:21) SHAKING/FEET SWELLING PFSH Medical History HTN, goal below 130/80 Personal history of nicotine dependence High cholesterol Anxiety and depression Hypertension, essential Surgical History History of tonsillectomy History of ankle surgery History of removal of cyst Family History Father No problems noted. Mother No problems noted. Son Hypertension Social History Household Members Other:: roomate Housing: House Alcohol intake: former Patient Tobacco Use Status: Former Tobacco user Quit Date: 2020 Years Smoked: (onset 11yo, smoked for 30yrs at 1ppd, 30pyh - quit 2019 using vape e-Cigarette/Vaping Use: Currently Using service: No Current occupational status: retired Current occupational exposures/hazards: No Cognitive needs: No Hearing needs: No Vision needs: No Physical Exam Vital Signs: Last Vital Signs Pulse 80 10/12/23 11:29 Resp 18 10/12/23 11:29 BP 150/80 H 10/12/23 11:29 Pulse Ox 98 10/12/23 11:29 Oxygen Delivery Method Room Air 10/12/23 11:29 BMI result Body Mass Index 23.4 Assessment & Plan Assessment & Plan (1) Osteoarthritis of right hip: Code(s): M16.11 - Unilateral primary osteoarthritis, right hip (2) Right hip pain: Code(s): M25.551 - Pain in right hip Plan: Right hip steroid injection. Informed consent was explained to the patient. All questions were explained and answered. The patient was taken inside of the operating room where she was positioned left lateral decubitus on operating table.. Time-out was performed delineating patient's name and date of , correct site, side, the nature of the procedure, patient's allergy, preoperative antibiotic if needed, need for VT prophylaxis.. All operating room staff was participating in OR time-out procedure. Right hip area of the patient was prepped with ChloraPrep and draped with sterile towels. C-arm was brought over the operating field and picture of left and right lateral views of the bilateral hip joints were delineated on the screen. The smaller joint silhouette was chosen as the target. Projection of the right trochanter to the skin was chosen as the initial needle insertion point. After that the skin and subcutaneous tissues was anesthetized with 2% lidocaine 2.5 mL. 22 gauge 5 in long needle was inserted through the skin and started to advance to the joint space under intermittent lateral and anterior posterior views. When needle entered the capsule of the joint small amount of the contrast was injected delineating intra-articular space. After that treatment solution containing 4 cc of ropivacaine 0.5% mixed with 40 mg of Kenalog was injected into the joint. The needle was withdrawn sterile dressing was applied.The patient tolerated procedure well (3) Trochanteric bursitis, right hip: Code(s): M70.61 - Trochanteric bursitis, right hip (4) Coccydynia: Code(s): M53.3 - Sacrococcygeal disorders, not elsewhere classified (5) Chronic pelvic pain in female: Code(s): R10.2 - Pelvic and perineal pain; G89.29 - Other chronic pain Plan Patient is status post implantation of spinal cord stimulator [employer] on 09/11/22 for the treatment of coccydynia. Patient reports 80% pain relief with improving mobility, better ability to sit, stand and walk and improving quality of life with decreased pain. She is here with a new complaint. She complains on pain in the right hip, pain in the right groin with walking and standing pain radiates down to the right ankle. Right hip x-ray demonstrated severe bone on bone osteoarthritis. I will schedule her for the right hip steroid injection. I also will send her for the consult to orthopedic surgeon Dr. Wall. Orders: Orders FL guidance in treatment room Today M25.551 - Pain in right hip Coding Level of Care Code Procedure Only Diagnoses Osteoarthritis of right hip M16.11 Right hip pain M25.551 Trochanteric bursitis, right hip M70.61 Coccydynia M53.3 Chronic pelvic pain in female R10.2; G89.29
== END 2023-10-12 11:27 | disposition home or self-care (01) ==
LOC: HO.PMCPRC 10:32
PROVIDERS: PCP Family Medicine; Visit Provider Anesthesiology
DX: M16.11 Unilateral primary osteoarthritis, right hip (principal); M25.551 Pain in right hip; M70.61 Trochanteric bursitis, right hip
CPT/HCPCS: 20610; 77002

== ENCOUNTER 2023-12-31 13:08 | Outpatient (AMB) | payer MEDICARE, MEDICAID, SELFPAY ==
[2023-12-31 13:17] VITALS: BP 134/72; PULSE 71; O2SAT 99; BMI 24.2
--- NOTE | 2023-12-31 13:17 | A.OFFPC_ITS ---
Vital Signs 12/31/23 13:17 Height 5 ft 3 in Weight 136 lb 6 oz BMI 24.2 BP 134/72 Blood Pressure Location Lt brachial Position Sitting Pulse 71 Pulse Source Pulse Oximeter Pulse Oximetry (%) 99 Oxygen Delivery Method Room Air Intake Visit Reasons: right EDUARDO with Dr. Wall 01/18/24- see comments Intake Note: Patient is here for preop visit for right hip replacement. Patient would like refill of cyclobenzaprine today. Allergies aripiprazole [From ABILIFY] Allergy (Intermediate, Verified 12/31/23 13:22) SHAKING bupropion [From WELLBUTRIN] Allergy (Intermediate, Verified 12/31/23 13:22) SHAKING, WEAKNESS atypical antipsychotics Allergy (Intermediate, Uncoded 12/31/23 13:22) SHAKING/FEET SWELLING Tobacco use date assessed: 08/31/23 Fall risk assessment: No Falls in past year Last assessed Fall Risk: 12/31/23 Dental Screening Dental Screen Date: 08/31/23 Did you have a dental visit in the last 12 months?: Yes Did you have a dental problem in the last 6 months where you did not have access to dental care?: No Was dental information given to patient?: Patient has dentist HPI right EDUARDO with Dr. Wall 01/18/24- see comments HPI Details Patient presents for preoperative clearance prior to R hip replacement Procedure: R EDUARDO Date:?01/18/24 Surgeon: Dr. Wall Anesthesia: General Cardiac Hx: None Pulmonary Hx: None. Nonsmoker. Prior Surgical Complications: None Prior Anesthesia Complications: Episode of accidental awareness when she was 18 Coag issues: None Functional [place]: Able to walk 2 blocks before her hips start hurting. Denies any shortness of breath. [facility] Medical History HTN, goal below 130/80 Personal history of nicotine dependence High cholesterol Anxiety and depression Hypertension, essential Surgical History History of tonsillectomy History of ankle surgery History of removal of cyst Family History Father No problems noted. Mother No problems noted. Son Hypertension Social History Household Members Other:: roomate Housing: House Alcohol intake: former Patient Tobacco Use Status: Former Tobacco user Years Smoked: (onset 11yo, smoked for 30yrs at 1ppd, 30pyh - quit 2020 using vape e-Cigarette/Vaping Use: Currently Using service: No Current occupational status: retired Current occupational exposures/hazards: No Cognitive needs: No Hearing needs: No Vision needs: No Questionnaire Thrive Questionnaire Date Thrive assessed: 08/31/23 BERNICE-7 AMB Questionnaire BERNICE-7 Date BERNICE - 7 assessed: 08/31/23 Source: Developed by Drs. Moose Castillo, Christina Schmidt, Aubrey Min and colleagues, with an educational enzo from [employer]. Review of Systems Const Denies chills, Denies fatigue, Denies fever(s), Denies headache(s) and Denies weakness ENT Denies dizziness and Denies headache(s) Card Denies chest pain, Denies lightheadedness, Denies dyspnea and Denies other (Palpitations) Resp Denies cough, Denies dyspnea, Denies wheezing and Denies other ( shortness of breath) Musc Denies numbness and Denies tingling Neuro Denies dizziness, Denies headache(s), Denies numbness, Denies tingling, Denies paresthesias and Denies weakness Psych Denies anxiety and Denies depression Endo Denies fatigue Aller/Immun Denies wheezing Physical exam (Primary Care) Vital Signs: Last Vital Signs Pulse 71 12/31/23 13:17 BP 134/72 12/31/23 13:17 Pulse Ox 99 12/31/23 13:17 Oxygen Delivery Method Room Air 12/31/23 13:17 BMI result Body Mass Index 24.2 Tobacco/Smoking Status: Tobacco use Status Tobacco use date assessed 08/31/23 12/31/23 13:20 Patient Tobacco Use Status Former Tobacco user 12/31/23 13:20 e-Cigarette/Vaping Use Currently Using 12/31/23 13:20 Thrive Assessment: Date of Thrive Assessment Date Thrive assessed 08/31/23 12/31/23 13:20 Const General: no acute distress and well developed Nutritional Appearance: well nourished Orientation/consciousness: patient oriented x3 HENMT Head: Yes normocephalic and Yes atraumatic Eyes General: appearance normal, both eyes and all related structures Pupils: Equal, round and reactive pupils present EOM: EOMs intact bilaterally Resp Effort & Inspection: normal respiratory effort Auscultation: clear to auscultation bilaterally Cardio Rate: regular rate Rhythm: regular rhythm Heart sounds: S1 normal heart sound present, S2 normal heart sound present, no gallops, no murmurs and no rubs Neuro General: patient oriented x3 and gait normal Cranial nerves: Yes Equal, round and reactive pupils present Psych Affect: normal affect Assessment and Plan Assessment & Plan (1) Pre-op exam: Code(s): Z01.818 - Encounter for other preprocedural examination Plan: 68-year-old?female?presents?for?preoperative?clearance?prior?to?right?hip?replac ement No?history?of?cardiac?disease. Cardiac?auscultation?within?normal?limits EKG?shows?normal?sinus?rhythm?with?normal?axis,?normal?intervals,?no?hypertrophy ?and?no?ST-T-wave?changes. No?pulmonary?disease?and?pulmonary?auscultation?is?normal No?s urgical?complications?but?patient?does?note?difficulty?with?anesthesia/paralytic ?in?the?past?and?she?will?discuss?with?anesthesiologist. No?clotting?disorders Fair?functional?reserve Low?intermediate?risk?patient?for?intermediate?risk?procedure ?no?contraindications?to?proceeding?with?proposed?procedure Orders: Orders Complete Blood Count Auto Diff Today Z00.00 - Encounter for general adult medical examination without abnormal findings Basic Metabolic Panel Today Z00.00 - Encounter for general adult medical examination without abnormal findings Coding Level of Care Code Est Pt Level 3 (05159) Diagnoses Pre-op exam Z01.818
== END 2023-12-31 13:57 | disposition home or self-care (01) ==
PROVIDERS: PCP Family Medicine; Visit Provider Family Medicine
DX: Z01.818 Encounter for other preprocedural examination (principal)
CPT/HCPCS: 93000; 99213

== ENCOUNTER → 2024-01-04 10:55 | Outpatient (BNVA) | payer MEDICARE, MEDICAID, SELFPAY | PROVIDERS: PCP Family Medicine | DX: Z01.818 Encounter for other preprocedural examination (principal) ==

== ENCOUNTER 2024-01-13 09:48 | Outpatient (REF) | payer MEDICARE, MEDICAID, SELFPAY | END 2024-01-13 09:49 | disposition home or self-care (01) | LOC: HO.HOSX 09:48 | PROVIDERS: Visit Provider Physician Assistant | DX: Z13.89 Encounter for screening for other disorder (principal) ==

== ENCOUNTER → 2024-02-24 11:03 | Outpatient (BNVA) | payer MEDICARE, MEDICAID, SELFPAY | PROVIDERS: PCP Family Medicine | DX: Z01.818 Encounter for other preprocedural examination (principal) ==

== ENCOUNTER 2024-03-23 12:32 | Outpatient (AMB) | payer MEDICARE, MEDICAID, SELFPAY ==
[2024-03-23 12:34] VITALS: BMI 24.1
--- NOTE | 2024-03-23 12:34 | MHC.OFFVIS ---
Vital Signs 03/23/24 12:34 Height 5 ft 3 in Weight 136 lb BMI 24.1 Intake Visit Reasons: Pre-Op:SHE MUST WEAR MASK* R EDUARDO w/NE 03/28/24 Intake Note: Ping a 68 year old female who presents today for a preoperative visit for right EDUARDO on 03/28/24 NE. Pain management agreement reviewed and signed. Allergies aripiprazole [From ABILIFY] Allergy (Intermediate, Verified 03/23/24 12:39) SHAKING bupropion [From WELLBUTRIN] Allergy (Intermediate, Verified 03/23/24 12:39) SHAKING, WEAKNESS atypical antipsychotics Allergy (Intermediate, Uncoded 02/24/24 11:39) SHAKING/FEET SWELLING Medication List - Last Reconciled 03/23/24 by Vaibhav Andrew PA-C amlodipine 5 mg PO BID 90 days citalopram 20 mg PO DAILY 90 days clonidine HCl 0.2 mg (2 x 0.1 mg) PO Q8H PRN 30 days MDD 3 cyclobenzaprine 10 mg PO TID PRN gabapentin 800 mg PO TID hydroxyzine HCl 25 mg PO BEDTIME 30 days ibuprofen 600 mg PO Q8H PRN [Raised toilet seat raised toilet seat WITH HANDLES; and round seat] valsartan 320 mg PO DAILY 90 days walker Folding Front wheeled walker HPI Comments Details: Me Becerril presents to the office today for preop visit. She is scheduled for right total hip arthroplasty with Dr. Wall. She continues to have ongoing pain and difficulty with ambulation in the right hip, which is affecting her quality of life; therefore, she has elected to move forward with surgery. [facility] Medical History (Updated 03/23/24 @ 13:25 by Caro Talamantes RN) Arthritis GERD (gastroesophageal reflux disease) COVID-19 HTN, goal below 130/80 Personal history of nicotine dependence High cholesterol Anxiety and depression Hypertension, essential Surgical History (Updated 03/23/24 @ 14:00 by Caro Talamantes RN) S/P insertion of spinal cord stimulator H/O colonoscopy History of tonsillectomy History of ankle surgery History of removal of cyst Family History Father No problems noted. Mother No problems noted. Son Hypertension Social History (Reviewed 12/31/23 @ 13:24 by MARY ELLEN Oquendo Household Members Other:: roomate Housing: House Are you a primary field care coordinator to a significant other at home: No Do you presently have visiting nurse or other home services: No Alcohol intake: former Patient Tobacco Use Status: Former Tobacco user Years Smoked: (onset 11yo, smoked for 30yrs at 1ppd, 30pyh - quit 2020 using vape e-Cigarette/Vaping Use: Currently Using service: No Current occupational status: retired Current occupational exposures/hazards: No Cognitive needs: No Hearing needs: No Vision needs: No Review of Systems Const All systems reviewed & are unremarkable except as noted in HPI and below Physical Exam Vital Signs: BMI result Body Mass Index 24.1 Const General: cooperative, healthy appearing, no acute distress, well developed and alert Orientation/consciousness: patient oriented x3 HEENT Head: Yes normal to inspection, Yes normocephalic and Yes atraumatic Eyes General: appearance normal, both eyes and all related structures Neck Neck: Yes normal visual inspection and Yes no lymphadenopathy Resp Effort & Inspection: normal respiratory effort and able to speak in complete sentences Cardio Rate: regular rate Peripheral pulses: Peripheral pulses 2+ throughout GI Inspection: Yes normal to inspection Palpation (GI): Soft to palpation Skin General skin exam: no rashes or lesions noted Neuro General: patient oriented x3 Extrem Other: Severe gait antalgia + Impingement test on the right +Stinchfield, right Psych Appearance: grossly normal Mental Status: mental status grossly normal Assessment & Plan Assessment & Plan (1) Trochanteric bursitis, right hip: Code(s): M70.61 - Trochanteric bursitis, right hip Category: Medical Plan I discussed in detail the procedure and what to expect pre and post operatively. We discussed the risks, benefits and alternatives to the surgery as well as the rehabilitation course. The risks; which include, but are not limited to infection, bleeding, nerve injury, ongoing pain, swelling, and stiffness, perioperative risk of injury to bones and soft tissues, and blood clots. I?ve answered all questions and with their understanding they have consented to move forward with Right total hip arthroplasty with Dr. Duke SETH ASA Orders: Orders XR hip RT min 2V 03/23/24 M25.551 - Pain in right hip Patient Instructions: Scribed for Dio-Deanna Andrew PA-C, by Luis Daniel Arteaga, medical transcriber, on 03/23/2024 at 12:30 PM EST.? I, Vaibhav Andrew PA-C, have personally reviewed and agree with the information entered by the scribe. Coding Level of Care Code Est Pt Level 3 (58850) Complex EM visit Add On G2211 Diagnoses Trochanteric bursitis, right hip M70.61
== END 2024-03-23 14:15 | disposition home or self-care (01) ==
PROVIDERS: PCP Family Medicine; Visit Provider Physician Assistant
DX: M70.61 Trochanteric bursitis, right hip (principal)
CPT/HCPCS: 99024

== ENCOUNTER → 2024-03-23 12:32 | Outpatient (BNVA) | payer MEDICARE, MEDICAID, SELFPAY | PROVIDERS: PCP Family Medicine; Visit Provider Physician Assistant | DX: Z01.818 Encounter for other preprocedural examination (principal); M70.61 Trochanteric bursitis, right hip | CPT/HCPCS: 99212 ==

== ENCOUNTER 2024-03-28 06:24 | Inpatient (IN) | payer MEDICARE, MEDICAID, SELFPAY ==
[2024-03-23 13:32] VITALS: BP 131/74; PULSE 70; RESP 16; O2SAT 97; BMI 22.8
--- NOTE | 2024-03-23 13:50 | HO.ANESPROP2 ---
Documented by User: Halima Massey NP 03/24/24 14:04 HPI - Anesthesia Eval Consult details Narrative: 68yo F for RIght Hip Total Replacement, 03/28/24 Medically optimized per 12/2023 s/p COVID + 03/14/24: mild URI symptoms resolved No CP/SOB with walking GERD: Prilosec daily Spinal Stim in situ: Right flank. Instructed to bring remote and info card DOS PMFSH Active Problems Active Problems: All Active Problems Pre-op exam (Acute) Screening for osteoporosis (Acute) Screening for colon cancer (Acute) Breast cancer screening by mammogram (Acute) Adult general medical examination (Acute) Hyperlipidemia (Acute) Difficulty sleeping (Acute) Acute adjustment disorder (Acute) Trochanteric bursitis, right hip (Acute) Right hip pain (Acute) Osteoarthritis of right hip (Acute) Osteoarthritis of left hip (Acute) Left hip pain (Acute) Sciatica (Acute) HTN, goal below 140/90 (Acute) Cellulitis of hand, right (Acute) Bee sting reaction (Acute) Left thyroid nodule (Acute) Advance directive discussed with patient (Acute) Chronic pelvic pain in female (Acute) Coccydynia (Acute) Vapes nicotine containing substance (Acute) Essential tremor (Acute) Lumbago of lumbar region with sciatica (Acute) Primary generalized (osteo)arthritis (Acute) Chronic GERD (Acute) Coccyx pain (Acute) Personal history of nicotine dependence (Acute) High cholesterol (Acute) Anxiety and depression (Acute) Hypertension, essential (Acute) Past Medical History Medical History Arthritis GERD (gastroesophageal reflux disease) COVID-19 HTN, goal below 130/80 Personal history of nicotine dependence High cholesterol Anxiety and depression Hypertension, essential Family History Family History Father No problems noted. Mother No problems noted. Son Hypertension Family history of problems with anesthesia: No Surgical History Surgical History S/P insertion of spinal cord stimulator H/O colonoscopy History of tonsillectomy History of ankle surgery History of removal of cyst History of Problems with Anesthesia: No (1 x paralytic on board before asleep) Social History Social History Household Members Other:: roomate Housing: House Are you a primary neonatal intensive care unit nurse to a significant other at home: No Do you presently have visiting nurse or other home services: No Alcohol intake: former Patient Tobacco Use Status: Former Tobacco user Years Smoked: (onset 11yo, smoked for 30yrs at 1ppd, 30pyh - quit 2020 using vape e-Cigarette/Vaping Use: Currently Using Use of substances other than those prescribed or required for medical reasons: No Have you been hit, kicked, punched, or otherwise hurt by someone within the past year? If so, by whom?: No Are you DNR?: No Advance Directives: No Advance Directives Information Provided: No Advance Directives on File: No Recently lost weight without trying: No Eating poorly because of decreased appetite: No Nutrition Risks: No Nutritional Risk Patient : No : No Poor oral hygiene: Yes (full upper denture, and lower crowns) service: No Current occupational status: retired Current occupational exposures/hazards: No Cognitive needs: No Hearing needs: No Vision needs: No Meds Allergies Allergy/AdvReac Type Severity Reaction Status Date / Time aripiprazole [From ABILIFY] Allergy Intermediate SHAKING Verified 03/28/24 06:29 bupropion [From WELLBUTRIN] Allergy Intermediate SHAKING, Verified 03/28/24 06:29 WEAKNESS atypical antipsychotics Allergy Intermediate SHAKING/FEET Uncoded 03/28/24 06:29 SWELLING Home Medications ?Medication ?Instructions ?Recorded ?Confirmed ?Last Taken ?Type celecoxib 200 mg capsule 200 mg PO DAILY PRN Pain 03/23/24 03/23/24 03/27/24 History clonidine HCl 0.1 mg tablet 0.2 mg PO Q8H PRN Anxiety 03/23/24 03/23/24 03/27/24 History omeprazole 20 mg capsule,delayed 20 mg PO DAILY 03/23/24 03/23/24 03/28/24 04:30 History release Exam Height,Weight and Vital Signs: Height 5 ft 3 in Weight 58.513 kg Last Vital Signs Pulse 70 03/23/24 13:32 Resp 16 03/23/24 13:32 BP 131/74 03/23/24 13:32 Pulse Ox 97 03/23/24 13:32 O2 Del Method Room Air 03/23/24 13:32 Pertinent Lab Results Pertinent Lab Results: Lab Results 03/23/24 03/23/24 Range/Units 13:50 14:15 WBC 7.8 (4.8-10.8) X10*3/uL RBC 4.58 (4.20-5.50) X10*6/uL Hgb 12.6 (12.0-16.0) g/dl Hct 38.5 (37.0-47.0) % MCV 84.1 (80.0-98.0) fL MCH 27.5 (27.0-33.0) pg MCHC 32.7 (31.0-35.0) g/dl RDW 12.0 (11.0-16.0) % Plt Count 268 (160-400) X10*3/uL MPV 10.0 (9.4-12.3) fL Absolute Nucleated RBC 0.000 (0.0-0.012) X10*3/uL Nucleated RBC % (auto) 0.0 (0.0-0.2) /100WBC Sodium 141 (135-145) mmol/L Potassium 4.6 (3.3-5.1) mmol/L Chloride 102 (96-108) mmol/L Carbon Dioxide 29 (22-29) mmol/L Anion Gap 15 (12-20) BUN 12 (9-16) mg/dL Creatinine 0.77 (0.5-1.4) mg/dL Estim Creat Clear Calc 57.8 Estimated GFR > 60 Random Glucose 102 (60-115) mg/dL Calcium 9.2 (8.4-10.2) mg/dL Nasal Screen MRSA (PCR) NEGATIVE (Negative) Nasal S. aureus Screen POSITIVE A (Negative) Nasal MRSA/S.aureus Interp SEE NOTE Blood Type A Negative Antibody Screen NEGATIVE Narrative Narrative: EKG 12/2023 normal?sinus?rhythm?with?normal?axis,?normal?intervals,?no?hypertrophy?and?no?ST-T-wave?changes Airway Mallampati Class: I TM Dist: >3cm Neck ROM: Full Denture: Upper and Lower Heart: RRR Lungs: CTAB Assessment and Plan Assessment Anesthesia Assessment: Anesthesia Plan Discussed, Smoking Cess. Discussed (Vapes) and PAT Visit Final Anesthetic Review Family History of Problems with Anesthesia: No History of Problems with Anesthesia: No (1 x paralytic on board before asleep) Documented by User: Janette Fleming MD 03/28/24 07:28 [facility] Past Medical History Medical History Arthritis GERD (gastroesophageal reflux disease) COVID-19 HTN, goal below 130/80 Personal history of nicotine dependence High cholesterol Anxiety and depression Hypertension, essential Family History Family History Father No problems noted. Mother No problems noted. Son Hypertension Surgical History Surgical History S/P insertion of spinal cord stimulator H/O colonoscopy History of tonsillectomy History of ankle surgery History of removal of cyst Social History Social History Household Members Other:: roomate Housing: House Are you a primary neonatal intensive care unit nurse to a significant other at home: No Do you presently have visiting nurse or other home services: No Alcohol intake: former Patient Tobacco Use Status: Former Tobacco user Years Smoked: (onset 11yo, smoked for 30yrs at 1ppd, 30pyh - quit 2020 using vape e-Cigarette/Vaping Use: Currently Using Use of substances other than those prescribed or required for medical reasons: No Have you been hit, kicked, punched, or otherwise hurt by someone within the past year? If so, by whom?: No Are you DNR?: No Advance Directives: No Advance Directives Information Provided: No Advance Directives on File: No Recently lost weight without trying: No Eating poorly because of decreased appetite: No Nutrition Risks: No Nutritional Risk Patient : No : No Poor oral hygiene: Yes (full upper denture, and lower crowns) service: No Current occupational status: retired Current occupational exposures/hazards: No Cognitive needs: No Hearing needs: No Vision needs: No Meds Allergies Allergy/AdvReac Type Severity Reaction Status Date / Time aripiprazole [From ABILIFY] Allergy Intermediate SHAKING Verified 03/28/24 06:29 bupropion [From WELLBUTRIN] Allergy Intermediate SHAKING, Verified 03/28/24 06:29 WEAKNESS atypical antipsychotics Allergy Intermediate SHAKING/FEET Uncoded 03/28/24 06:29 SWELLING Home Medications ?Medication ?Instructions ?Recorded ?Confirmed ?Last Taken ?Type celecoxib 200 mg capsule 200 mg PO DAILY PRN Pain 03/23/24 03/23/24 03/27/24 History clonidine HCl 0.1 mg tablet 0.2 mg PO Q8H PRN Anxiety 03/23/24 03/23/24 03/27/24 History omeprazole 20 mg capsule,delayed 20 mg PO DAILY 03/23/24 03/23/24 03/28/24 04:30 History release Assessment and Plan Final Anesthetic Review NPO: Yes ASA Class: III Final Preanesthetic Review: No Changes in Pt Med Stat, Meds/Allgs Chart Reviewed, Consent Obtained/Reviewed and Anes Risks/Benef Reviewed Patient Risk: Intermediate Procedure Risk: Intermediate Anesthetic Plan Anesthetic Plan: GA Disposition: Standard PACU
[2024-03-23 14:25] LABS: Hematocrit 38.5 % (37.0-47.0); Hemoglobin 12.6 g/dl (12.0-16.0); Mean Corpuscular HGB Conc 32.7 g/dl (31.0-35.0); Mean Corpuscular Hemoglobin 27.5 pg (27.0-33.0); Mean Corpuscular Volume 84.1 fL (80.0-98.0); Platelet Count 268 X10*3/uL (160-400); Red Blood Count 4.58 X10*6/uL (4.20-5.50); White Blood Count 7.8 X10*3/uL (4.8-10.8)
[2024-03-23 14:52] LABS: Anion Gap 15 (12-20); Blood Urea Nitrogen 12 mg/dL (9-16); Calcium 9.2 mg/dL (8.4-10.2); Carbon Dioxide 29 mmol/L (22-29); Chloride 102 mmol/L (96-108); Creatinine Clr Calc Pharmacy 57.8; Estimated Glomerular Filt Rate > 60; Glucose Random 102 mg/dL (60-115); Potassium 4.6 mmol/L (3.3-5.1); Sodium 141 mmol/L (135-145)
[2024-03-23 15:21] LABS: MRSA Nasal PCR NEGATIVE (Negative); SA Nasal PCR POSITIVE (Negative)
[2024-03-28] VITALS (24 sets, daily range): BP systolic 112–193; BP diastolic 58–98; PULSE 60–87; RESP 14–18; TEMP 36.1–36.9; O2SAT 95–100; BMI 22.6
--- NOTE | ~2024-03-28 | XR_ITS ---
EXAMINATION: XR PELVIS CLINICAL INFORMATION: Right total hip orthoplasty COMPARISON: 09/23/2023 TECHNIQUE: AP view of the pelvis. FINDINGS: Prosthetic components of the right total hip arthroplasty are appropriately aligned. No periprosthetic fracture. Gas from recent surgery is present in the surrounding soft tissues. Moderate osteoarthritis in the left hip with severe joint space narrowing and subarticular sclerosis. Neurostimulator device is partially imaged. Imaged sacrum is unremarkable. XR/XR pelvis 1-2V IMPRESSION: 1. Appropriate alignment of the right total hip arthroplasty. 2. Moderate osteoarthritis in the left hip. Electronically signed by: Jerrell Avilez MD 03/28/2024 12:12 PM EDT
--- NOTE | ~2024-03-28 | XR_ITS ---
EXAMINATION: XR PELVIS CLINICAL INFORMATION: Repeat postop pelvis. True AP. COMPARISON: X-rays of the pelvis March 28, 2024. TECHNIQUE: AP view of the pelvis. FINDINGS: There is a right total hip arthroplasty with components in the usual in unchanged position. No periprosthetic fracture or suspicious area of lucency. Gas present in the soft tissues compatible with postoperative status. Mild to moderate osteoarthritis of left hip unchanged. Remaining visualized bony joints of the pelvis unremarkable. Leads from neurostimulator device overlies the pelvis. XR/XR pelvis 1-2V IMPRESSION: Right total hip arthroplasty without complication by x-ray. Electronically signed by: Trevin Mccall MD 03/29/2024 04:29 PM EDT RP
--- NOTE | ~2024-03-28 | XR_ITS ---
EXAMINATION: XR HIP, RIGHT CLINICAL INFORMATION: Pain in the right hip. COMPARISON: 08/30/2023 TECHNIQUE: AP and frog-leg lateral views of the right hip. AP view of the pelvis. FINDINGS: Severe osteoarthritis in the right hip with complete cephalad joint space narrowing, marginal osteophytes, subchondral sclerosis, and subchondral cystic change. Bones are osteopenic. No fracture or malalignment. Spinal stimulator device unit overlies the right iliac wing. XR/XR hip RT min 2V IMPRESSION: Severe osteoarthritis in the right hip. No acute osseous findings. Electronically signed by: Jerrell Avilez MD 04/10/2024 11:10 PM EDT
--- OUTSIDE RECORDS SUMMARY | 2024-03-28 06:28 | XMS_ITS | Continuity of Care Document ---
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 Role Phone Chapo Isaac MD Primary Care Physician [phone] Encounter [facility] Date(s): 10/23/19 - 11/02/19 [facility] [address] [place] [address]- [facility] Attending Physician: Marco Mackay8 Admitting Physician: Admtr, Arturo Referring Physician: Admtr, Ar8 Allergies, Adverse Reactions, Alerts Substance Reaction Severity Status Wellbutrin Active Other Environmental Allergy SEASONAL Active Medications albuterol CFC free 90 mcg/inh inhalation aerosol 2, puffs, Inhalation, Every 4 hours, PRN, # 1 each, Refills 3, Tot. Refills 3, Maintenance, 01/13/16 14:18:16, Aerosol, Route to Pharmacy Electronically, [id number], [facility]/pharmacy #[id number], Compound Start Date: 01/13/16 Stop Date: 05/12/16 Status: Ordered cloNIDine 0.1 mg oral tablet Refills 0, Maintenance, 04/10/16 10:38:06 Start Date: 04/10/16 Status: Ordered LaMICtal 200 mg oral tablet 1 tablet = 200 mg, By Mouth, Daily, 0 Refills, Maintenance, 03/31/19 7:40:54 EDT Start Date: 03/31/19 Status: Ordered metoprolol 25 mg oral tablet 12.5 mg, 0.5, tablet, By Mouth, 2 times a day, # 90 tablet, Refills 3, Tot. Refills 3, Maintenance,09/07/16 16:48:00, Route to Pharmacy Electronically, [id number], [facility]/pharmacy #[id number] Start Date: 09/07/16 Status: Ordered multivitamin Vitamin B Complex oral capsule 1 capsule, By Mouth, Daily, # 30 capsule, 0 Refills, Maintenance, 01/13/16 19:33:42, Capsule Start Date: 01/13/16 Status: Ordered Neurontin 300 mg oral capsule See Instructions, 1 tid and 2 at hs, # 150 each, Refills 6, Tot. Refills 6, Maintenance, 07/17/16 15:07:59, Instructions Replace Required Details, Route to Pharmacy Electronically, [id number], [facility]/pharmacy #[id number] Start Date: 07/17/16 Status: Ordered Robaxin-750 750 mg oral tablet 2 tablet = 1,500 mg, By Mouth, 3 times a day, # 84 tablet, 0 Refills, Maintenance, 10/23/19 9:19:00EDT, Tablet Start Date: 10/23/19 Stop Date: 11/06/19 Status: Ordered valsartan 160 mg oral tablet 160 mg, 1, tablet, By Mouth, Daily, # 30 tablet, Refills 0, Maintenance, 03/31/19 7:40:12 EDT Start Date: 03/31/19 Status: Ordered Problem List Condition Effective Dates Status Health Status Inform ant NSTEMI (non-ST elevated myoc ardial infarction)(Confirmed) Active ASCUS(Confirmed) Active Asthma(Confirmed) Active ADD - Attention deficit disorder(Confirmed) Active COPD - Chronic obstructive p ulmonary disease(Confirmed) Active 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
--- OUTSIDE RECORDS SUMMARY | 2024-03-28 06:28 | XMS_ITS | Continuity of Care Document ---
Author Organization [facility] ter Address [address] [place] [id number]- Care Team Providers Care Kitchen Supervisor Name Role Phone Chapo Isaac MD Primary Care Physician Encounter [facility] Date(s): 11/13/21 - 01/04/[address] [address] Attending Physician: Gay Stewart NP Admitting Physician: Gay Stewart NP Referring Physician: Gay Stewart NP Allergies, Adverse Reactions, Alerts Substance Reaction Severity Status Wellbutrin Active Other Environmental Allergy SEASONAL Active Medications albuterol CFC free 90 mcg/inh inhalation aerosol 2, puffs, Inhalation, Every 4 hours, PRN, # 1 each, Refills 3, Tot. Refills 3, Maintenance, 01/13/16 14:18:16, Aerosol, Route to Pharmacy Electronically, [id number], [facility]/pharmacy #[id number], Compound Start Date: 01/13/16 Stop Date: [...] 3, Maintenance,09/07/16 16:48:00, Route to Pharmacy Electronically, [id number], [facility]/pharmacy #[id number] Start Date: 09/07/16 Status: Ordered multivitamin Vitamin B Complex oral capsule 1 capsule, By Mouth, Daily, # 30 capsule, 0 Refills, Maintenance, 01/13/16 19:33:42, Capsule Start Date: 01/13/16 Status: Ordered Neurontin 300 mg oral capsule See Instructions, 1 tid and 2 at hs, # 150 each, Refills 6, Tot. Refills 6, Maintenance, 07/17/16 15:07:59, Instructions Replace Required Details, Route to Pharmacy Electronically, [id number], [facility]/pharmacy #[id number] Start Date: 07/17/16 Status: Ordered Robaxin-750 [...]
--- OUTSIDE RECORDS SUMMARY | 2024-03-28 06:28 | XMS_ITS | Continuity of Care Document ---
Author Organization [facility] Address [address] [place] [address]- Care Team Providers Care Sales Order Administrator Name Role Phone Chapo Isaac MD Primary Care Physician [phone] Encounter [facility] Date(s): 09/22/19 - 10/29/19 [facility] [address] [place] [address]- [facility] Attending Physician: Landy Leonard DO Admitting Physician: Landy Leonard DO Referring Physician: Chapo Isaac MD Allergies, Adverse Reactions, Alerts Substance Reaction Severity Status Wellbutrin Active Other Environmental Allergy SEASONAL Active Medications albuterol CFC free 90 mcg/inh inhalation aerosol 2, puffs, Inhalation, Every 4 hours, PRN, # 1 each, Refills 3, Tot. Refills 3, Maintenance, 01/13/16 14:18:16, Aerosol, Route to Pharmacy Electronically, [id number], [facility]/pharmacy #[id number], Compound Start Date: 01/13/16 Stop Date: [...] 3, Maintenance,09/07/16 16:48:00, Route to Pharmacy Electronically, [id number], [facility]/pharmacy #[id number] Start Date: 09/07/16 Status: Ordered multivitamin Vitamin B Complex oral capsule 1 capsule, By Mouth, Daily, # 30 capsule, 0 Refills, Maintenance, 01/13/16 19:33:42, Capsule Start Date: 01/13/16 Status: Ordered Neurontin 300 mg oral capsule See Instructions, 1 tid and 2 at hs, # 150 each, Refills 6, Tot. Refills 6, Maintenance, 07/17/16 15:07:59, Instructions Replace Required Details, Route to Pharmacy Electronically, [id number], [facility]/pharmacy #[id number] Start Date: 07/17/16 Status: Ordered Robaxin-750 [...]
--- OUTSIDE RECORDS SUMMARY | 2024-03-28 06:28 | XMS_ITS | Continuity of Care Document ---
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 Name Role Phone Poncho DEJESUS, Chapo Sommer Primary Care Physician [phone] Encounter [facility] [place] Date(s): 07/07/19 - 07/17/19 [facility] [address] [place] [address]- [facility] Attending Physician: Arturo Mackay Admitting Physician: AdmtrArturo Referring Physician: Admtr, Ar8 Allergies, Adverse Reactions, Alerts Substance Reaction Severity Status Wellbutrin Active Other Environmental Allergy SEASONAL Active Medications albuterol CFC free 90 mcg/inh inhalation aerosol 2, puffs, Inhalation, Every 4 hours, PRN, # 1 each, Refills 3, Tot. Refills 3, Maintenance, 01/13/16 14:18:16, Aerosol, Route to Pharmacy Electronically, [id number], [facility]/pharmacy #[id number], Compound Start Date: 01/13/16 Stop [...] 3, Maintenance,09/07/16 16:48:00, Route to Pharmacy Electronically, [id number], [facility]/pharmacy #[id number] Start Date: 09/07/16 Status: Ordered [...] Replace Required Details, Route to Pharmacy Electronically, [id number], [facility]/pharmacy #[id number] Start Date: 07/17/16 Status: Ordered PROzac 20 mg oral capsule 20 mg, 1, capsule, By Mouth, Daily, Refills 0, Maintenance, 07/17/16 14:37:52 Start Date: 07/17/16 Status: Ordered valsartan 160 mg oral tablet [...]
[2024-03-28] MEDS: oxyCODONE HCl ER 10 MG TAB.ER.12H PO ×2 (06:40→20:04)
[2024-03-28] MEDS: Lactated Ringers 1,000 ML 100 ML IVCONT ×2 (06:53→13:34)
--- NOTE | 2024-03-28 07:30 | MHC.SHP ---
Pre-Procedural Eval Section A - 24 Hr Update-Section A only Date of Service: 03/28/24 The patient is an INPATIENT: No Changes since office visit: No Cold of Flu in the past 2 weeks, No New Medical Problems, No Changes in Medication and No Patient answered all questions The patient has been examined within 24 hours of the surgical procedure. The History & Physical has been completed within 30 days and I have reviewed it.: Yes Section B - Complete if H&P > 30 days Chief Complaint: Unilateral primary osteoarthritis, right hip Allergies: Allergies Allergy/AdvReac Type Severity Reaction Status Date / Time aripiprazole [From ABILIFY] Allergy Intermediate SHAKING Verified 03/28/24 06:29 bupropion [From WELLBUTRIN] Allergy Intermediate SHAKING, Verified 03/28/24 06:29 WEAKNESS atypical antipsychotics Allergy Intermediate SHAKING/FEET Uncoded 03/28/24 06:29 SWELLING Plan I have reviewed the history and physical and performed a pertinent physical examination on my patient. No changes have occurred unless specified. Time Spent With Patient Time: Total time managing care of this patient today ____ minutes.
--- NOTE | 2024-03-28 07:48 | PHA.MEDREC ---
Pharmacy Consult ? Medication Reconciliation Pharmacy has reviewed the medication reconciliation completed by nursing. Utilized pharmacy claims. Clonidine and cyclobenzaprine both last filled 11/16/23, however both are PRN.
--- NOTE | 2024-03-28 09:26 | P.BOP_ITS ---
Brief Operative Note Date of Service: 03/28/24 Pre-op diagnosis: Right hip OA Post-op diagnosis: same Procedure: Right EDUARDO Implants: Gabriele Trident2 54 with two 6.5 mm acetabular screws [place] Accolade2 #5 132 with -2.5 36 ceramic FH Surgeon: Óscar Wall MD Anesthesia: GETA and local Was an Payroll Secretary used for this Procedure?: Yes Payroll Secretary: Vaibhav Andrew Estimated blood loss (mL): 250 IV fluids (mL): 1,000 Pathology: other Condition: stable Disposition: PACU
[2024-03-28] MEDS: HYDROmorphone HCl 0.5 MG/0.5 ML SYRINGE 0.25 MG IVPUSH ×9 (09:40→21:52)
[2024-03-28] MEDS: LORazepam 2 MG/ML VIAL 1 MG IVPUSH (10:04)
--- NOTE | 2024-03-28 13:23 | P.CONHOSP_ITS ---
History of Present Illness Data of Consult Service Date: 03/28/24 Requesting physician: Vaibhav Andrew Primary Care Provider: Angel Centeno MD HPI Reason for consult: medical management 68 year old female with history of htn, mood disorder, gerd admitted to orthopedic surgery for OA R Hip s/p EDUARDO with consult placed to hospitalist service for medical management. Per op report, surgery was uncomplicated. She is reporting 10/10 pain in the R hip and is visibly uncomfortable, slightly tremulous which is new. She remains on 3L O2 but is satting 100%, no hx chronic lung disease known. Has been hypertensive improved to 151/76 on arrival to the floor, likely complicated by uncontrolled pain levels. Pt does take clonidine 0.2mg at home but states only takes this intermittently, not scheduled dosing. No cigarettes, drugs, or alcohol. Review of Systems 2 Review of Systems: Yes all other systems are reviewed and are negative [facility] Medical History Arthritis GERD (gastroesophageal reflux disease) COVID-19 HTN, goal below 130/80 Personal history of nicotine dependence High cholesterol Anxiety and depression Hypertension, essential Family History Father No problems noted. Mother No problems noted. Son Hypertension Surgical History S/P insertion of spinal cord stimulator H/O colonoscopy History of tonsillectomy History of ankle surgery History of removal of cyst Social History Household Members: Friend(s) Household Members Other:: roomate Housing: House Are you a primary career technical supervisor to a significant other at home: No Do you presently have visiting nurse or other home services: No Alcohol intake: former Patient Tobacco Use Status: Former Tobacco user Years Smoked: (onset 11yo, smoked for 30yrs at 1ppd, 30pyh - quit 2020 using vape e-Cigarette/Vaping Use: Currently Using Use of substances other than those prescribed or required for medical reasons: No Have you been hit, kicked, punched, or otherwise hurt by someone within the past year? If so, by whom?: No Do you feel safe in your current relationship?: No Current Relationship Are you DNR?: No Advance Directives: No Advance Directives Information Provided: No Advance Directives on File: No Do you have a plan to hurt others: No Plan Recently lost weight without trying: No Eating poorly because of decreased appetite: No Nutrition Risks: No Nutritional Risk Patient : No : No Poor oral hygiene: No service: No Current occupational status: retired Current occupational exposures/hazards: No Cognitive needs: No Hearing needs: No Vision needs: No Meds Allergies Allergy/AdvReac Type Severity Reaction Status Date / Time aripiprazole [From ABILIFY] Allergy Intermediate SHAKING Verified 03/28/24 06:29 bupropion [From WELLBUTRIN] Allergy Intermediate SHAKING, Verified 03/28/24 06:29 WEAKNESS atypical antipsychotics Allergy Intermediate SHAKING/FEET Uncoded 03/28/24 06:29 SWELLING Active Medications: Current Medications Acetaminophen (Acetaminophen 325 Mg Tablet) 650 mg PO Q6H PRN PRN Reason: Pain, Mild (Pain Scale 1-3), fever or headache Aspirin (Aspirin 325 Mg Tablet) 325 mg PO BID LUIS Celecoxib (Celecoxib 200 Mg Capsule) 200 mg PO BID LUIS Clonidine HCl (Clonidine Hcl 0.2 Mg Tablet) 0.2 mg PO Q8H PRN; Protocol PRN Reason: Anxiety Cyclobenzaprine HCl (Cyclobenzaprine Hcl 10 Mg Tablet) 10 mg PO TID PRN PRN Reason: for muscle spasm Docusate Sodium (Docusate Sodium 100 Mg Capsule) 100 mg PO BID LUIS Gabapentin (Gabapentin 400 Mg Capsule) 800 mg PO TID LUIS Hydromorphone HCl (Hydromorphone Hcl 0.5 Mg/0.5 Ml Syringe) 0.25 mg IVPUSH Q4H PRN; Protocol PRN Reason: Pain, Severe (Pain Scale 7-10) Hydroxyzine HCl (Hydroxyzine Hcl 25 Mg Tablet) 25 mg PO BEDTIME [facility] Lactated Ringer's (Lr) 1,000 mls @ 100 mls/hr IVCONT .Q10H LUIS Stop: 03/29/24 09:32 Cefazolin Sodium/Dextrose (Ancef) 2 gm in 50 mls @ 100 mls/hr IV POSTOP@1400 ONE Stop: 03/28/24 14:29 Non-Formulary Medication (Citalopram) 20 mg PO DAILY LUIS Omeprazole (Omeprazole 20 Mg Capsule.Dr) 20 mg PO DAILY@0630 [facility] Oxycodone HCl (Oxycodone Hcl Immed Release 5 Mg Tablet) 5 mg PO Q4H PRN PRN Reason: Pain, Moderate(Pain Scale 4-6) Oxycodone HCl (Oxycodone Hcl Er 10 Mg Tab.Er.12h) 10 mg PO BID [facility] Sodium Chloride (0.9 % Sodium Chloride Flush 3 Ml Syringe) 3 ml IVFLUSH QSHIFT [facility] Home Medications ?Medication ?Instructions ?Recorded ?Confirmed ?Last Taken ?Type celecoxib 200 mg capsule 200 mg PO DAILY PRN Pain 03/23/24 03/23/24 03/27/24 History clonidine HCl 0.1 mg tablet 0.2 mg PO Q8H PRN Anxiety 03/23/24 03/23/24 03/27/24 History omeprazole 20 mg capsule,delayed 20 mg PO DAILY@0630 03/23/24 03/28/24 03/28/24 04:30 History release Physical Exam 2 Vital Signs and Narrative: Vital Signs: Last Vital Signs Temp 98 F 03/28/24 13:18 Pulse 81 03/28/24 13:18 Resp 14 03/28/24 13:18 BP 151/76 H 03/28/24 13:18 Pulse Ox 100 03/28/24 13:18 O2 Del Method Nasal Cannula 03/28/24 13:18 O2 Flow Rate 3 03/28/24 13:18 BMI result Body Mass Index 22.6 Constitutional - Awake and Alert, uncomfortable appearing Eyes - PERRLA, EOMI Cardiovascular - S1S2, RRR, No edema Respiratory - Normal lung expansion, Normal respiratory effort, No respiratory distress, CTA bilaterally Gastrointestinal - NT / ND; +BS; No rebound or guarding Extremities - no calf tenderness bilaterally, no swelling Skin - Warm/Dry Neurological - Alert & oriented x3, tremulous Psychological - Appropriate affect Results Labs 03/23/24 14:15 03/23/24 14:15 Imaging Radiologist's Impressions: Impressions Pelvis X-Ray 03/28/24 09:50 IMPRESSION: 1. Appropriate alignment of the right total hip arthroplasty. 2. Moderate osteoarthritis in the left hip. Electronically signed by: Jerrell Avilez MD 03/28/2024 12:12 PM EDT Assessment and Plan (1) Osteoarthritis of right hip: Status: Acute Plan 68 year old female with history of htn, mood disorder, gerd admitted to orthopedic surgery for OA R Hip s/p EDUARDO with consult placed to hospitalist service for medical management. #OA R Hip s/p EDUARDO -plan per ortho surgery -pain management per ortho surgery #HTN -continue amlodipine. Resume valsartan am #Mood disorder -resume clonidine am. Continue home meds #GERD -continue ppi Thank you for allowing me to participate in this consult. Signing off at this time. Please do not hesitate to call for further questions or for any acute medical issues
[2024-03-28] MEDS: ceFAZolin Sodium/Dextrose,Iso 2 GM/50 ML PIGGYBACK IV (13:34)
--- NOTE | 2024-03-28 14:00 | PHA.MEDREC ---
Pharmacy Consult ? Medication Reconciliation Pharmacy has reviewed the medication reconciliation completed by nursing.
[2024-03-28] MEDS: Escitalopram Oxalate 10 MG TABLET PO (14:11)
[2024-03-28] MEDS: Gabapentin 400 MG CAPSULE 800 MG PO ×2 (14:11→20:04)
[2024-03-28] MEDS: Docusate Sodium 100 MG CAPSULE PO (20:04)
[2024-03-28] MEDS: Celecoxib 200 MG CAPSULE PO (20:04)
[2024-03-28] MEDS: amLODIPine Besylate 5 MG TABLET PO (20:04)
[2024-03-28] MEDS: 0.9 % Sodium Chloride Flush 3 ML SYRINGE IVFLUSH (20:05)
--- NOTE | 2024-03-28 20:14 | PC.NURSE ---
Addendum entered by Mirella Longo RN 03/28/24 23:11: Patient still not wanting atarax. Medicated for pain per SEP after pain increased post-ambulation with staff with BR. Handoff report given at 23:00. Original Note: Assumed care of patient at 19:00. Pt is s/p RT EDUARDO today. Pt reports she is voiding on commode without issue and is passing flatus. LBM yesterday. Pain reported 02/25, tolerating per pt. Scheduled pain meds given per SEP. Pt requested to hold off on scheduled atarax at this time, will call when she would like it as she usually takes it at a later time at home. Aquacel dressing to hip is clean/dry/intact with scant staining that was outlined by display card writer. Appropriate mild edema to right hip. +dp pulses, +cms. Pt denies numbness/tingling or other acute issues. Pt resting in bed without distress, son present at bedside. Bed alarm on and safety measures in place. Call horowitz within reach, rings appropriately to make needs known. Plan of care continues.
[2024-03-29] VITALS (7 sets, daily range): BP systolic 92–138; BP diastolic 50–76; PULSE 74–83; RESP 14–16; TEMP 36.3–36.7; O2SAT 93–98
[2024-03-29] MEDS: Lactated Ringers 1,000 ML 100 ML IVCONT ×2 (00:10→11:46)
[2024-03-29] MEDS: Cyclobenzaprine HCl 10 MG TABLET PO ×3 (02:51→21:10)
[2024-03-29 06:13] LABS: MANUAL DIFF FLAG NO
[2024-03-29] MEDS: HYDROmorphone HCl 0.5 MG/0.5 ML SYRINGE 0.25 MG IVPUSH (06:21)
[2024-03-29 06:29] LABS: Basophils Percent Auto 0.3 % (0-2); Eosinophils Percent Auto 0.1 % (0-4); Hematocrit 26.5 % (37.0-47.0); Hemoglobin 8.4 g/dl (12.0-16.0); Imm Gran Abs Auto 0.02 X10*3/uL (0.00-0.03); Imm Gran Pct Auto 0.3 % (0.0-0.4); Lymphocytes Percent Auto 14.4 % (20-40); Mean Corpuscular HGB Conc 31.7 g/dl (31.0-35.0); Mean Corpuscular Hemoglobin 26.8 pg (27.0-33.0); Mean Corpuscular Volume 84.7 fL (80.0-98.0); Mean Platelet Volume 10.7 fL (9.4-12.3); Monocytes Absolute Auto 1.3 X10*3/uL (0.1-1.2); Monocytes Percent Auto 18.3 % (2-11); Neutrophils Absolute Auto 4.6 x10*3/uL (2.0-8.3); Neutrophils Percent Auto 66.6 % (45-73); Platelet Count 184 X10*3/uL (160-400); Red Blood Count 3.13 X10*6/uL (4.20-5.50); Red Cell Distribution Width 12.3 % (11.0-16.0)
[2024-03-29] MEDS: Omeprazole 20 MG CAPSULE.DR PO (06:31)
[2024-03-29 06:40] LABS: Anion Gap 11 (12-20); Blood Urea Nitrogen 8 mg/dL (9-16); Carbon Dioxide 30 mmol/L (22-29); Chloride 103 mmol/L (96-108); Creatinine Clr Calc Pharmacy 63.6; Estimated Glomerular Filt Rate > 60; Glucose Fasting 120 mg/dL (60-99); Potassium 4.4 mmol/L (3.3-5.1); Sodium 140 mmol/L (135-145)
--- NOTE | 2024-03-29 07:53 | PM.PNORT ---
Subjective Subjective Date of Service: 03/29/24 Interval history: POD1 s/p RTHA Patient is resting in bed Complains of unbearable muscle spasm with muscle activation of the RLE - Muscle relaxer helping some Denies cp, palpitations, abd pain No additional complaints Physical Exam Vital Signs: Vital Signs: Last Vital Signs Temp 97.9 F 03/29/24 07:36 Pulse 77 03/29/24 07:36 Resp 14 03/29/24 07:36 BP 126/61 03/29/24 07:36 Pulse Ox 95 03/29/24 07:36 O2 Del Method Room Air 03/29/24 07:36 O2 Flow Rate 3 03/28/24 13:18 BMI result Body Mass Index 22.6 Const: General: cooperative, healthy appearing and no acute distress Resp: Effort & Inspection: normal respiratory effort and able to speak in complete sentences Cardio: Rate: regular rate Peripheral pulses: Peripheral pulses 2+ throughout GI: Palpation (GI): Soft to palpation Skin: Lesions: no lesions Rashes: no rashes Extrem: Other: right hip dressing is c/d/i. Able to dorsi/plantar flex. Calf is supple and nontender. Sensation intact. Pedal pulse intact. Procedures Date of Service Date of Service: 03/29/24 Progress Note: A&P Assessment and plan (1) Status post total replacement of right hip: Status: Acute Plan Continue pain mgmnt Muscle relaxer was added overnight for RLE spasming Begin ASA for dvt ppx begin PT/OT for RTHA - posterior precuations Dispo planning-Pending PT/OT eval, pain mgmnt, monitor H&H Patient needs ongoing hospitalization for pain management, monitor h&h post operatively and physical therapy. Likely will need short term rehab on d/c. Time Spent With Patient Time: Total time managing care of this patient today ____ minutes. Quality Stroke Does the patient have a stroke diagnosis?: No VTE Prior VTE?: No VTE Risk Level:: Medical - moderate - high VTE Device Contraindication: N/A - Device Ordered VTE Drug Contraindication: N/A - Med Ordered
--- NOTE | 2024-03-29 08:58 | HO.POSTANES ---
Post Anesthesia Evaluation Post Anesthesia Evaluation Date of Service: 03/28/24 Vital Signs: Vital Signs Temp Pulse Resp BP Pulse Ox O2 Del Method 03/29/24 07:36 97.9 F 77 14 126/61 95 Room Air 03/29/24 06:02 80 16 126/57 L 03/29/24 02:55 98.1 F 83 16 97/55 L 97 Room Air 03/28/24 23:30 98.1 F 80 16 112/58 L 96 Room Air 03/28/24 22:22 16 03/28/24 21:52 18 Anesthesia: General Endotracheal-GETA Mental Status: Awake Pain Control: Satisfactory Nausea/Vomiting: None Hydration: Adequate Anesthesia-Related Issues: No Anes. Related Issues
[2024-03-29] MEDS: Gabapentin 400 MG CAPSULE 800 MG PO ×3 (09:03→21:13)
[2024-03-29] MEDS: oxyCODONE HCl ER 10 MG TAB.ER.12H PO ×2 (09:03→21:16)
[2024-03-29] MEDS: Acetaminophen 325 MG TABLET 650 MG PO ×2 (09:03→14:57)
[2024-03-29] MEDS: Docusate Sodium 100 MG CAPSULE PO (09:03)
[2024-03-29] MEDS: Escitalopram Oxalate 10 MG TABLET PO (09:04)
[2024-03-29] MEDS: Aspirin 325 MG TABLET PO ×2 (09:04→21:14)
[2024-03-29] MEDS: Celecoxib 200 MG CAPSULE PO ×2 (09:04→21:12)
[2024-03-29] MEDS: oxyCODONE HCl Immed Release 5 MG TABLET PO ×3 (09:04→21:14)
[2024-03-29] MEDS: 0.9 % Sodium Chloride Flush 3 ML SYRINGE IVFLUSH ×3 (09:05→21:17)
--- NOTE | 2024-03-29 11:27 | MHC.CM.PN ---
Addendum entered by Ayala Pineda RN 03/29/24 11:55: Correction: DP: STR @ [place] [facility] via BLS Saturday 03/31 IMM delivered. Original Note: Patient lives in a home w/ her brother/brother's spouse. 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 Ambulating w/ cane PRN. Reports she met with [facility]. This CM spoke with [facility] CM Mai Johansen [phone]), who confirms patient has a referral for [facility]. Mai is aware of potential dc tomorrow and will expedite the referral. Patient states family will help PRN until [facility] services are in place. PCP Angel Centeno MD Patient completed HCP naming her son as [facility]. DP: Home w/ services, prefers [facility]. Family transport. CM will continue to follow.
--- NOTE | 2024-03-29 14:15 | W.MHC.F2F ---
Service Date Service Date: 03/29/24 Encounter Date of encounter: 03/29/24 Reasons for Services Signs and symptoms assessed: Patient is status post right total hip arthroplasty Reason for physical therapy: home safety and mobility, therapeutic exercises, restore joint function, gait/transfer training and ADL training Reason for occupational therapy: home safety and mobility, restore joint function, gait/transfer training and ADL training Homebound: Leaving the home is medically contraindicated at this time without the asist of a device and/or another person due th the listed conditions above and below. Reason homebound: unsteady gait / fall risk, pain with ambulation, poor balance / fall risk and unable to drive Certification: Based on the above findings, I certify that this patient is confined to the home and needs intermittent physical therapy and/or speech therapy, or continues to need occupational therapy. The patient is under my care, and I have initiated the establishment of the plan of care. The patient will be followed by a physician who will periodically review the plan of care. Time Spent With Patient Time: Total time managing care of this patient today ____ minutes.
[2024-03-29] MEDS: amLODIPine Besylate 5 MG TABLET PO (21:13)
[2024-03-29] MEDS: hydrOXYzine HCL 25 MG TABLET PO (21:13)
[2024-03-30 02:51] VITALS: BP 121/62; PULSE 70; RESP 14; TEMP 36.1; O2SAT 98
[2024-03-30 06:11] LABS: MANUAL DIFF FLAG NO
[2024-03-30] MEDS: Omeprazole 20 MG CAPSULE.DR PO (06:26)
[2024-03-30 06:31] LABS: Basophils Percent Auto 0.3 % (0-2); Eosinophils Absolute Auto 0.1 X10*3/uL (0.0-0.4); Eosinophils Percent Auto 1.2 % (0-4); Hematocrit 24.8 % (37.0-47.0); Imm Gran Abs Auto 0.02 X10*3/uL (0.00-0.03); Imm Gran Pct Auto 0.3 % (0.0-0.4); Lymphocytes Percent Auto 15.3 % (20-40); Mean Corpuscular HGB Conc 32.3 g/dl (31.0-35.0); Mean Corpuscular Hemoglobin 27.5 pg (27.0-33.0); Mean Corpuscular Volume 85.2 fL (80.0-98.0); Mean Platelet Volume 10.7 fL (9.4-12.3); Monocytes Absolute Auto 1.1 X10*3/uL (0.1-1.2); Monocytes Percent Auto 15.9 % (2-11); Neutrophils Absolute Auto 4.4 x10*3/uL (2.0-8.3); Platelet Count 155 X10*3/uL (160-400); Red Blood Count 2.91 X10*6/uL (4.20-5.50); Red Cell Distribution Width 12.3 % (11.0-16.0); White Blood Count 6.6 X10*3/uL (4.8-10.8)
[2024-03-30 06:43] LABS: Anion Gap 11 (12-20); Blood Urea Nitrogen 7 mg/dL (9-16); Calcium 7.6 mg/dL (8.4-10.2); Carbon Dioxide 27 mmol/L (22-29); Chloride 106 mmol/L (96-108); Creatinine Clr Calc Pharmacy 75.5; Estimated Glomerular Filt Rate > 60; Glucose Fasting 104 mg/dL (60-99); Potassium 3.7 mmol/L (3.3-5.1); Sodium 140 mmol/L (135-145)
[2024-03-30 08:00] VITALS: BP 144/62; PULSE 81; RESP 17; TEMP 36.2; O2SAT 98
[2024-03-30] MEDS: Gabapentin 400 MG CAPSULE 800 MG PO ×3 (08:27→20:00)
[2024-03-30] MEDS: Valsartan 320 MG TABLET PO (08:27)
[2024-03-30] MEDS: Docusate Sodium 100 MG CAPSULE PO (08:27)
[2024-03-30] MEDS: Celecoxib 200 MG CAPSULE PO ×2 (08:28→20:02)
[2024-03-30] MEDS: 0.9 % Sodium Chloride Flush 3 ML SYRINGE IVFLUSH ×3 (08:28→20:02)
[2024-03-30] MEDS: Aspirin 325 MG TABLET PO ×2 (08:28→20:00)
[2024-03-30] MEDS: oxyCODONE HCl ER 10 MG TAB.ER.12H PO ×2 (08:28→20:00)
[2024-03-30] MEDS: amLODIPine Besylate 5 MG TABLET PO ×2 (08:28→20:00)
[2024-03-30] MEDS: Escitalopram Oxalate 10 MG TABLET PO (08:30)
[2024-03-30] MEDS: Cyclobenzaprine HCl 10 MG TABLET PO ×2 (08:32→20:00)
[2024-03-30 11:12] VITALS: BP 102/52; PULSE 74; RESP 16; TEMP 36.6; O2SAT 94
[2024-03-30] MEDS: Ferrous Sulfate 324 MG TABLET.DR PO (12:02)
--- NOTE | 2024-03-30 12:04 | PM.PNORT ---
Subjective Subjective Date of Service: 03/30/24 Interval history: POD1 s/p RTHA Patient is resting in bed Patient reports Only mild discomfort in the right hip at this time Denies cp, palpitations, abd pain Patient denies any dizziness, lightheadedness, or headaches No additional complaints Physical Exam Vital Signs: Vital Signs: Last Vital Signs Temp 97.9 F 03/30/24 11:12 Pulse 74 03/30/24 11:12 Resp 16 03/30/24 11:12 BP 102/52 L 03/30/24 11:12 Pulse Ox 94 03/30/24 11:12 O2 Del Method Room Air 03/30/24 11:12 O2 Flow Rate 3 03/28/24 13:18 BMI result Body Mass Index 22.6 Const: General: cooperative, healthy appearing and no acute distress Resp: Effort & Inspection: normal respiratory effort and able to speak in complete sentences Cardio: Rate: regular rate Peripheral pulses: Peripheral pulses 2+ throughout GI: Palpation (GI): Soft to palpation Skin: Lesions: no lesions Rashes: no rashes Extrem: Other: Dressing on right hip clean, dry ,intact No surrounding erythema noted No surrounding ecchymosis noted Small amount of bloody drainage noted on dressing Patient is able to dorsiflex and plantar flex the right foot without difficulty Compartments soft, nontender Distal sensation intact Capillary refill brisk Procedures Date of Service Date of Service: 03/30/24 Progress Note: A&P Assessment and plan (1) Status post total replacement of right hip: Status: Acute Plan Continue pain mgmnt Continue ASA for dvt ppx Administer iron supplementation for low hemoglobin and hematocrit, repeat H&H tomorrow Continue PT/OT for RTHA - posterior precuations Dispo planning-plan is for discharge to short-term rehab pending clearance and bed availability per case management Patient needs ongoing hospitalization for pain management, monitor h&h post operatively and physical therapy. Likely will need short term rehab on d/c. Time Spent With Patient Time: Total time managing care of this patient today ____ minutes. Quality Stroke Does the patient have a stroke diagnosis?: No VTE Prior VTE?: No VTE Risk Level:: Medical - moderate - high VTE Device Contraindication: N/A - Device Ordered VTE Drug Contraindication: N/A - Med Ordered
[2024-03-30] MEDS: oxyCODONE HCl Immed Release 5 MG TABLET PO (15:09)
[2024-03-30 15:29] VITALS: BP 109/53; PULSE 76; RESP 18; TEMP 36.1; O2SAT 99
[2024-03-30 15:32] VITALS: BP 119/63; PULSE 80; RESP 18; TEMP 36; O2SAT 96
[2024-03-30 20:00] VITALS: BP 147/67; PULSE 80; RESP 16; O2SAT 99
[2024-03-30] MEDS: hydrOXYzine HCL 25 MG TABLET PO (20:00)
[2024-03-31 04:00] VITALS: BP 102/53; PULSE 72; RESP 16; TEMP 36.1; O2SAT 96
[2024-03-31] MEDS: Omeprazole 20 MG CAPSULE.DR PO (05:32)
[2024-03-31 06:01] LABS: MANUAL DIFF FLAG NO
[2024-03-31 06:19] LABS: Basophils Percent Auto 0.3 % (0-2); Eosinophils Absolute Auto 0.1 X10*3/uL (0.0-0.4); Eosinophils Percent Auto 1.4 % (0-4); Hematocrit 27.4 % (37.0-47.0); Hemoglobin 8.8 g/dl (12.0-16.0); Imm Gran Abs Auto 0.05 X10*3/uL (0.00-0.03); Imm Gran Pct Auto 0.8 % (0.0-0.4); Lymphocytes Percent Auto 15.6 % (20-40); Mean Corpuscular HGB Conc 32.1 g/dl (31.0-35.0); Mean Corpuscular Hemoglobin 27.7 pg (27.0-33.0); Mean Corpuscular Volume 86.2 fL (80.0-98.0); Monocytes Absolute Auto 0.9 X10*3/uL (0.1-1.2); Monocytes Percent Auto 13.5 % (2-11); Neutrophils Absolute Auto 4.4 x10*3/uL (2.0-8.3); Neutrophils Percent Auto 68.4 % (45-73); Platelet Count 184 X10*3/uL (160-400); Red Blood Count 3.18 X10*6/uL (4.20-5.50); Red Cell Distribution Width 12.2 % (11.0-16.0); White Blood Count 6.4 X10*3/uL (4.8-10.8)
[2024-03-31 06:21] LABS: Anion Gap 11 (12-20); Blood Urea Nitrogen 8 mg/dL (9-16); Calcium 8.1 mg/dL (8.4-10.2); Carbon Dioxide 29 mmol/L (22-29); Chloride 106 mmol/L (96-108); Creatinine Clr Calc Pharmacy 65.5; Estimated Glomerular Filt Rate > 60; Glucose Fasting 122 mg/dL (60-99); Potassium 3.9 mmol/L (3.3-5.1); Sodium 142 mmol/L (135-145)
[2024-03-31 07:29] VITALS: BP 114/54; PULSE 78; RESP 16; TEMP 36.3; O2SAT 96
[2024-03-31] MEDS: oxyCODONE HCl ER 10 MG TAB.ER.12H PO (08:54)
[2024-03-31 08:55] VITALS: BP 117/61
[2024-03-31] MEDS: Ferrous Sulfate 324 MG TABLET.DR PO (08:55)
[2024-03-31] MEDS: Escitalopram Oxalate 10 MG TABLET PO (08:55)
[2024-03-31] MEDS: Docusate Sodium 100 MG CAPSULE PO (08:55)
[2024-03-31] MEDS: Gabapentin 400 MG CAPSULE 800 MG PO (08:55)
[2024-03-31] MEDS: Aspirin 325 MG TABLET PO (08:55)
[2024-03-31] MEDS: Valsartan 320 MG TABLET PO (08:55)
[2024-03-31] MEDS: amLODIPine Besylate 5 MG TABLET PO (08:55)
[2024-03-31] MEDS: Celecoxib 200 MG CAPSULE PO (08:55)
[2024-03-31] MEDS: 0.9 % Sodium Chloride Flush 3 ML SYRINGE IVFLUSH (08:59)
--- NOTE | 2024-03-31 09:36 | PM.DS ---
DS: Providers Provider Date of Service: 03/31/24 Date of admission: 03/28/24 06:24 Primary care physician: Angel Centeno MD Consults: 03/28/24 13:06 Consult to Hospitalist Routine Comment: Consulting Provider: Hospitalist Reason For Exam: medical management, htn DS: Diagnosis Discharge Diagnosis (1) Status post total replacement of right hip: Status: Acute DS: Summary Hospital Course Hospital Course: The patient underwent a successful total hip arthroplasty on 03/28/2024, was transferred to PACU and then to the floor to recover. During their stay, their vitals were stable, afebrile at 97.4. Patient's H&H did drop to 8.8/24.8 on postop day 2, but improved significantly to 8.8/27.4 with iron supplementation . POD 1 she was started on aspirin 325 mg b.i.d. for DVT ppx, they also received Physical Therapy services twice a day. Physical therapy should include gait training, core and lumbar strength, glute strength. Posterior precautions intact. WBAT. Prior to discharge, her dressing was changed, incision clean dry and intact, new Aquacel dressing applied. The Aquacel dressing should remain intact and dry at all times. Any concerns with the dressing, please contact orthopedic office. No showering. The plan is to be discharged Time Attestation Discharge Coordination Time (in mins): Thirty minutes Quality: Safe Use of Opioids Does Pt have an Active Cancer Diagnosis on the Problem List?: No Quality: Stroke Does the patient have a stroke diagnosis?: No Physical Exam Vital Signs: Vital Signs: Last Vital Signs Temp 97.4 F 03/31/24 07:29 Pulse 78 03/31/24 07:29 Resp 16 03/31/24 07:29 BP 117/61 03/31/24 08:55 Pulse Ox 96 03/31/24 07:29 O2 Del Method Room Air 03/31/24 07:29 O2 Flow Rate 3 03/28/24 13:18 BMI result Body Mass Index 22.6 DS: Data Data Completed and Pending Completed studies during hospitalization [Text1]: Pending at discharge 03/28/24 08:15 Surgical [PTH] Routine Labs on day of discharge: Laboratory Results - last 24 hr 03/31/24 05:30 WBC 6.4 RBC 3.18 L Hgb 8.8 L Hct 27.4 L MCV 86.2 MCH 27.7 MCHC 32.1 RDW 12.2 Plt Count 184 MPV 11.0 Immature Gran % (Auto) 0.8 H Neut % (Auto) 68.4 Lymph % (Auto) 15.6 L Banner % (Auto) 13.5 H Eos % (Auto) 1.4 Baso % (Auto) 0.3 Lymph # (Auto) 1.0 L Banner # (Auto) 0.9 Eos # (Auto) 0.1 Baso # (Auto) 0.0 Abs Immat Gran (auto) 0.05 H Absolute Neuts (auto) 4.4 Absolute Nucleated RBC 0.000 Nucleated RBC % (auto) 0.0 Sodium 142 Potassium 3.9 Chloride 106 Carbon Dioxide 29 Anion Gap 11 L BUN 8 L Creatinine 0.68 Estim Creat Clear Calc 65.5 Estimated GFR > 60 Fasting Glucose 122 H Calcium 8.1 L D Discharge Plan Discharge Anticipated Discharge Date/Time: 03/29/24 17:00 Patient Disposition: Xfer SNF Discharge Diagnosis: Status post right total hip arthroplasty Referrals: Vaibhav Andrew PA-C [Physician Dough Machine Operator] - 2 Weeks (04/13/24 12:30 [facility] Surgeons Vaibhav Andrew PA-C) Discharge Medications: New celecoxib 200 mg Capsule 200 mg PO BID 30 Days Qty: 60 0RF acetaminophen 325 mg Tablet 650 mg PO Q6H PRN (Reason: Pain, Mild (Pain Scale 1-3), fever or headache) 30 Days Qty: 240 0RF aspirin 325 mg Tablet 325 mg PO BID 42 Days Qty: 84 0RF oxycodone 5 mg Tablet 5 mg PO Q4H PRN (Reason: Pain, Moderate(Pain Scale 4-6)) 7 Days Qty: 42 0RF Rx Instructions: Partial Fill upon patient request. Continued amlodipine 5 mg tablet 5 mg PO BID 90 Days Qty: 180 2RF citalopram 20 mg tablet 20 mg PO DAILY 90 Days Qty: 90 2RF cyclobenzaprine 10 mg tablet 10 mg PO TID PRN (Reason: for muscle spasm) Qty: 90 1RF valsartan 320 mg tablet 320 mg PO DAILY 90 Days Qty: 90 3RF (DME) walker [facility] See Rx Instructions .MEDSUPPLY Qty: 1 0RF Rx Instructions: Folding Front wheeled walker (DME) Raised toilet seat See Rx Instructions .ROUTE .MEDSUPPLY Qty: 1 0RF Rx Instructions: raised toilet seat WITH HANDLES; and round seat hydroxyzine HCl 25 mg tablet 25 mg PO BEDTIME 30 Days Qty: 30 0RF gabapentin 800 mg tablet 800 mg PO TID Qty: 90 0RF celecoxib 200 mg capsule 200 mg PO DAILY PRN (Reason: Pain) clonidine HCl 0.1 mg tablet 0.2 mg PO Q8H MDD 3 PRN (Reason: Anxiety) omeprazole 20 mg Capsule,Delayed Release(Dr/Ec) 20 mg PO DAILY@0630 Discharge Orders: Discharge Order (Routine); Ordered 03/31/24 Ordered By: Eduard Mccartney Diet: Advance to usual diet Activity on Discharge: Use cane or walker Stand Alone Forms: Patient Portal Discharge page Print Language: Telugu Care Plan Goals: Restore normal function of right hip Health Concerns: N/A Plan of Treatment: Physical therapy for total hip arthroplasty: WBAT, posterior precautions, gait training, range of motion, strength Limit stair climbing No showering, no tub bath-keep dressing clean dry and intact No driving for 6 weeks Continue aspirin twice a day for 6 weeks Follow-up with [facility] in 2 weeks Assessment: As above
--- NOTE | 2024-03-31 09:43 | MHC.CM.PN ---
Per ortho, patient medically cleared for dc to [facility]. Will transport to [facility] via BLS @ 11am. RN and patient aware.
--- NOTE | 2024-03-31 11:25 | PM.PNORT ---
Subjective Subjective Date of Service: 03/31/24 Interval history: POD1 s/p RTHA Patient is resting in bed Patient denies any pain at this time Denies cp, palpitations, abd pain Patient denies any dizziness, lightheadedness, or headaches No additional complaints Physical Exam Vital Signs: Vital Signs: Last Vital Signs Temp 97.4 F 03/31/24 07:29 Pulse 78 03/31/24 07:29 Resp 16 03/31/24 07:29 BP 117/61 03/31/24 08:55 Pulse Ox 96 03/31/24 07:29 O2 Del Method Room Air 03/31/24 07:29 O2 Flow Rate 3 03/28/24 13:18 BMI result Body Mass Index 22.6 Const: General: cooperative, healthy appearing and no acute distress Resp: Effort & Inspection: normal respiratory effort and able to speak in complete sentences Cardio: Rate: regular rate Peripheral pulses: Peripheral pulses 2+ throughout GI: Palpation (GI): Soft to palpation Skin: Lesions: no lesions Rashes: no rashes Extrem: Other: Dressing on right hip clean, dry ,intact No surrounding erythema noted No surrounding ecchymosis noted Small amount of bloody drainage noted on dressing Patient is able to dorsiflex and plantar flex the right foot without difficulty Compartments soft, nontender Distal sensation intact Capillary refill brisk Procedures Date of Service Date of Service: 03/31/24 Progress Note: A&P Assessment and plan (1) Status post total replacement of right hip: Status: Acute Plan Continue pain mgmnt Continue ASA for dvt ppx H&H improved significantly from yesterday, should continue iron supplementation upon discharge Continue PT/OT for RTHA - posterior precuations Dispo planning-plan is for discharge to short-term rehab pending clearance and bed availability per case management Time Spent With Patient Time: Total time managing care of this patient today ____ minutes. Quality Stroke Does the patient have a stroke diagnosis?: No VTE Prior VTE?: No VTE Risk Level:: Medical - moderate - high VTE Device Contraindication: N/A - Device Ordered VTE Drug Contraindication: N/A - Med Ordered
--- NOTE | 2024-04-03 16:33 | W.PM.OPN ---
Operative Note Operative Note Date of Service: 03/28/24 Narrative: Date of Service: 03/28/24 Pre-op diagnosis: Right hip OA Post-op diagnosis: same Procedure: Right EDUARDO Implants: [place] Trident2 54 with two 6.5 mm acetabular screws Gabriele Accolade2 #5 132 with -2.5 36 ceramic FH Surgeon: sÓcar Wall MD Anesthesia: GETA and local Was an Instructor Of Sociology used for this Procedure?: Yes Instructor Of Sociology: Vaibhav Andrew Estimated blood loss (mL): 250 IV fluids (mL): 1,000 Pathology: other Condition: stable Disposition: PACU Patient was brought into the operating room and placed in the right lateral decubitus position. All bony prominences were well padded and the limb was prepped and draped in standard sterile fashion. A time-out was called to identify proper site procedure proper surgeon IV antibiotics and 1 g of tranexamic acid were administered. I began by making a curvilinear incision over the posterolateral aspect of the greater trochanter. Dissection was taken down to the tensor fascia which was incised in line with the incision and a Charnley retractor was placed. Cautery was used to maintain hemostasis. The hip was internally rotated and the external rotators were identified. The vessels were cauterized and a full-thickness capsular/external rotator layer was developed starting just proximal to the piriformis. This layer was tagged and a dull Hohmann retractor was placed underneath the neck in the hip was dislocated. A neck cut was made 1 cm proximal to the lesser trochanter and the head and neck were removed and measured 46-48mm on the back table. The head was deformed and eburnated. I then removed the labrum and cauterized the fovea. I started with a 46 reamer and medialized to the inner table. I sequentially reamed up to a size 54 and impacted a 54mm cup at 45 degrees of inclination and 25 degrees of version. She had an eroded posterior wall and two 6.5mm acetabular screws were placed superiorly in standard AO fashion. I then placed a 20 deg posterior lipped liner and turned my attention to the femur. I identified the piriformis insertion and used this as a starting point for my aditi cutter. The medius tendon was protected with a Hibs retractor. A Charnley awl was inserted in the canal and a curved curette used to remove the lateral bone. I irrigated copiously. I then sequentially broached in the patient's natural version to a size 5 and placed my trial implants. I used a #5/132/-2.5 based on my pre-operative template. I removed all instrumentation and copiously irrigated. I placed my final femoral implant and again took the hip through range of motion and was satisfied with the stability and length. The final -2.5 implant was impacted in place and the hip reduced. I then irrigated copiously and placed 1 g of local tranexamic acid. I performed a capsular closure with 2.0 fiberwire, Michelle's fascia with 0 Vicryl, subcuticular with 2-0 Vicryl and the skin with albina. Patient was placed into a sterile dressing. Patient was extubated brought to the recovery room in stable condition. There were no known complications.
== END 2024-03-31 12:02 | disposition skilled nursing facility (03) | DRG 470 ==
LOC: HO.SSSA 06:26 → HO.S3 12:34
PROVIDERS: Nurse Practitioner; Physician Assistant; Admitting Provider Orthopaedic Surgery; PCP Family Medicine; Visit Provider Orthopaedic Surgery
PROC: 0SR903A Replacement of Right Hip Joint with Ceramic Synthetic Substitute, Uncemented, Open Approach (ICD-10-PCS; CPT 27130; principal; 2024-03-28 07:30)
DX: M16.11 Unilateral primary osteoarthritis, right hip (principal); I10 Essential (primary) hypertension; F39 Unspecified mood [affective] disorder; K21.9 Gastro-esophageal reflux disease without esophagitis; Z79.899 Other long term (current) drug therapy
CPT/HCPCS: 36415; 72170; 73502; 80048; 85025; 85027; 86850; 86900; 86901; 87640; 87641; 88311; 97116; 97161; 97166; 97530; 97535; C1713; C1776; J0131; J0690; J1100; J1170; J1920; J2060; J2405; J2704; J2795; J3010; J7120

== ENCOUNTER → 2024-03-28 06:24 | Outpatient (BNV) | payer MEDICARE, MEDICAID, SELFPAY | PROVIDERS: Admitting Provider Orthopaedic Surgery; PCP Family Medicine; Visit Provider Physician Assistant | DX: M16.11 Unilateral primary osteoarthritis, right hip (principal) | CPT/HCPCS: 99221 ==

== ENCOUNTER → 2024-03-28 06:24 | Outpatient (BNV) | payer MEDICARE, MEDICAID, SELFPAY | PROVIDERS: Admitting Provider Orthopaedic Surgery; PCP Family Medicine; Visit Provider Orthopaedic Surgery | DX: Z47.1 Aftercare following joint replacement surgery (principal); Z96.641 Presence of right artificial hip joint | CPT/HCPCS: 27130; 99024; G0180 ==

== ENCOUNTER 2024-04-13 12:28 | Outpatient (AMB) | payer MEDICARE, MEDICAID, SELFPAY ==
--- NOTE | 2024-04-13 12:33 | A.OFFVIS_ITS ---
Vital Signs 04/13/24 12:35 Height 5 ft 3 in Weight 130 lb BMI 23.0 Intake Visit Reasons: 2WK PO: R EDUARDO w/NE 03/28/24 Intake Note: Ping a 68 year old female who presents today for a post operative visit s/p RT EDUARDO on 03/28/24 NE. Patient reports her hip feels great. Her incision site is tender but she says her burning pain has resolved. She takes gabapetin and finds this relieves her when she has pain/discomfort. She would like to know when she can shower. Allergies aripiprazole [From ABILIFY] Allergy (Intermediate, Verified 04/13/24 12:36) SHAKING bupropion [From WELLBUTRIN] Allergy (Intermediate, Verified 04/13/24 12:36) SHAKING, WEAKNESS atypical antipsychotics Allergy (Intermediate, Uncoded 04/13/24 12:36) SHAKING/FEET SWELLING Medication List - Last Reconciled 04/13/24 by Vaibhav Andrew PA-C acetaminophen 650 mg (2 x 325 mg) PO Q6H PRN 30 days amlodipine 5 mg PO BID 90 days aspirin 325 mg PO BID 42 days celecoxib 200 mg PO DAILY PRN celecoxib 200 mg PO BID 30 days citalopram 20 mg PO DAILY 90 days clonidine HCl 0.2 mg PO Q8H PRN MDD 3 cyclobenzaprine 10 mg PO TID PRN gabapentin 800 mg PO TID hydroxyzine HCl 25 mg PO BEDTIME 30 days omeprazole 20 mg PO DAILY@0630 oxycodone 5 mg PO Q4H PRN 7 days [Raised toilet seat raised toilet seat WITH HANDLES; and round seat] valsartan 320 mg PO DAILY 90 days walker Folding Front wheeled walker HPI HPI 2WK PO: R EDUARDO w/NE 03/28/24: Details: 68-year-old female who returns to the office today for post-op right EDUARDO, 03/28/[address] Wall. She states she has improvement in her burning pain however she continues to have tenderness around the incision site. She takes gabapentin for her pain and discomfort with benefits. She has no other concerns today. [facility] Medical History Arthritis GERD (gastroesophageal reflux disease) COVID-19 HTN, goal below 130/80 Personal history of nicotine dependence High cholesterol Anxiety and depression Hypertension, essential Surgical History S/P insertion of spinal cord stimulator H/O colonoscopy History of tonsillectomy History of ankle surgery History of removal of cyst Family History Father No problems noted. Mother No problems noted. Son Hypertension Social History Household Members: Friend(s) Household Members Other:: roomate Housing: House Are you a primary healthcare science specialist to a significant other at home: No Do you presently have visiting nurse or other home services: No Alcohol intake: former Patient Tobacco Use Status: Former Tobacco user Years Smoked: (onset 11yo, smoked for 30yrs at 1ppd, 30pyh - quit 2020 using vape e-Cigarette/Vaping Use: Currently Using service: No Current occupational status: retired Current occupational exposures/hazards: No Cognitive needs: No Hearing needs: No Vision needs: No Review of Systems Const All systems reviewed & are unremarkable except as noted in HPI and below Physical Exam Vital Signs: BMI result Body Mass Index 23.0 Extrem Other: Right hip: Incision clean, dry and intact. No redness or drainage. No pain with ROM or hip flexion. NVI. Assessment & Plan Assessment & Plan (1) Status post total replacement of right hip: Code(s): Z96.641 - Presence of right artificial hip joint Category: Surgical Plan Vikash removed, steri strips applied. She will begin to transition to Outpatient PT to continue working on Gait training, ROM and quad strength. No driving for another 4 weeks. She will require ppx abx for dental procedures. She will f/u in 4 weeks, sooner if needed. Patient Instructions: Scribed for Vaibhav Andrew PA-C, by Luis Daniel Arteaga medical assistant prn, on 04/13/2024 at 12:30 PM EST.? I, Vaibhav Andrew PA-C, have personally reviewed and agree with the information entered by the scribe. Coding Level of Care Code Global (96661) Diagnoses Status post total replacement of right hip Z96.641
[2024-04-13 12:35] VITALS: BMI 23.0
== END 2024-04-13 13:06 | disposition home or self-care (01) ==
PROVIDERS: PCP Family Medicine; Visit Provider Physician Assistant
DX: Z96.641 Presence of right artificial hip joint (principal)
CPT/HCPCS: 99024

== ENCOUNTER → 2024-04-13 12:28 | Outpatient (BNVA) | payer MEDICARE, MEDICAID, SELFPAY | PROVIDERS: PCP Family Medicine; Visit Provider Physician Assistant | DX: Z47.1 Aftercare following joint replacement surgery (principal); Z96.641 Presence of right artificial hip joint | CPT/HCPCS: 99212 ==

== ENCOUNTER 2024-05-04 08:38 | Outpatient (AMB) | payer MEDICARE, MEDICAID, SELFPAY ==
[2024-05-04 08:40] VITALS: BMI 23.0
--- NOTE | 2024-05-04 08:40 | MHC.OFFVIS ---
Vital Signs 05/04/24 08:40 Height 5 ft 3 in Weight 130 lb BMI 23.0 Intake Visit Reasons: PO: R EDUARDO w/NE 03/28/24 Intake Note: Ping a 68 year old female who presents today for a post operative visit s/p RT EDUARDO on 03/28/24 NE. At her last visit she was instructed to begin transition to outpatient PT, she requested to attend [facility]. Patient reports that she is dong well with no concerns. She would like to return to driving. Allergies aripiprazole [From ABILIFY] Allergy (Intermediate, Verified 04/13/24 12:36) SHAKING bupropion [From WELLBUTRIN] Allergy (Intermediate, Verified 04/13/24 12:36) SHAKING, WEAKNESS atypical antipsychotics Allergy (Intermediate, Uncoded 04/13/24 12:36) SHAKING/FEET SWELLING HPI HPI PO: R EDUARDO w/NE 03/28/24: Details: Ping a 68 year old female who presents today for a post operative visit s/p RT EDUARDO on 03/28/24 NE. At her last visit she was instructed to begin transition to outpatient PT, she requested to attend [facility]. Patient reports that she is dong well with no concerns. She would like to return to driving. [facility] Medical History Arthritis GERD (gastroesophageal reflux disease) COVID-19 HTN, goal below 130/80 Personal history of nicotine dependence High cholesterol Anxiety and depression Hypertension, essential Surgical History S/P insertion of spinal cord stimulator H/O colonoscopy History of tonsillectomy History of ankle surgery History of removal of cyst Family History Father No problems noted. Mother No problems noted. Son Hypertension Social History Household Members: Friend(s) Household Members Other:: roomate Housing: House Are you a primary congregational care pastor to a significant other at home: No Do you presently have visiting nurse or other home services: No Alcohol intake: former Patient Tobacco Use Status: Former Tobacco user Years Smoked: (onset 11yo, smoked for 30yrs at 1ppd, 30pyh - quit 2020 using vape e-Cigarette/Vaping Use: Currently Using service: No Current occupational status: retired Current occupational exposures/hazards: No Cognitive needs: No Hearing needs: No Vision needs: No Physical Exam Vital Signs: BMI result Body Mass Index 23.0 Extrem Other: Walking normally. No limp. No pain with hip range of motion. Incision clean dry and intact. Assessment & Plan Assessment & Plan (1) Status post total replacement of right hip: Code(s): Z96.641 - Presence of right artificial hip joint Category: Surgical Plan: Cartilage doing well. No intervention warranted. Continue activity as tolerated. Follow up in 9 months. Coding Level of Care Code Global (83042) Diagnoses Status post total replacement of right hip Z96.641
== END 2024-05-04 08:50 | disposition home or self-care (01) ==
PROVIDERS: PCP Family Medicine; Visit Provider Orthopaedic Surgery
DX: Z96.641 Presence of right artificial hip joint (principal)
CPT/HCPCS: 99024

== ENCOUNTER → 2024-05-04 08:38 | Outpatient (BNVA) | payer MEDICARE, MEDICAID, SELFPAY | PROVIDERS: PCP Family Medicine; Visit Provider Orthopaedic Surgery | DX: Z47.1 Aftercare following joint replacement surgery (principal); Z96.641 Presence of right artificial hip joint | CPT/HCPCS: 99212 ==

== ENCOUNTER 2024-05-16 10:59 | Outpatient (AMB) | payer MEDICARE, MEDICAID, SELFPAY ==
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
[2024-05-16 11:11] VITALS: BP 120/59; PULSE 99; RESP 14; TEMP 36; O2SAT 96; BMI 23.2
== END 2024-05-16 11:43 | disposition home or self-care (01) ==
LOC: HO.HMCFM 11:00
PROVIDERS: PCP Family Medicine; Visit Provider Family Medicine
DX: Z96.641 Presence of right artificial hip joint (principal); F41.9 Anxiety disorder, unspecified; F32.9 Major depressive disorder, single episode, unspecified; Z12.31 Encounter for screening mammogram for malignant neoplasm of breast; Z80.41 Family history of malignant neoplasm of ovary

== ENCOUNTER → 2024-05-16 10:59 | Outpatient (BNVA) | payer MEDICARE, MEDICAID, SELFPAY | PROVIDERS: PCP Family Medicine; Visit Provider Family Medicine | DX: F41.9 Anxiety disorder, unspecified (principal); F32.9 Major depressive disorder, single episode, unspecified; Z96.641 Presence of right artificial hip joint; Z80.41 Family history of malignant neoplasm of ovary | CPT/HCPCS: 96127; 99212 ==

== ENCOUNTER → 2024-05-29 23:59 | Outpatient (BNV) | payer MEDICARE, MEDICAID, SELFPAY | PROVIDERS: PCP Family Medicine; Visit Provider Family Medicine | DX: I10 Essential (primary) hypertension (principal); F32.A Depression, unspecified; F41.9 Anxiety disorder, unspecified; K21.9 Gastro-esophageal reflux disease without esophagitis | CPT/HCPCS: G0180 ==

== ENCOUNTER 2024-07-03 10:57 | Outpatient (RCR) | payer MEDICARE, MEDICAID, SELFPAY ==
[2024-06-26 10:54] VITALS: BP 131/67; PULSE 70
--- NOTE | 2024-06-26 11:55 | MHC.PT.EP ---
[facility] [place] Office [place] Office [place] Office [address] [phone] F: [phone] F: [phone] F: [phone] F: [phone] Physical Therapy Plan of Care Date of Evaluation: 06/26/24 Date of Surgery: 03/28/24 Diagnosis: Presence of R artificial hip joint s/p EDUARDO- R side Assessment: Ping is a 69 year old female who is referred to PT for s/o R EDUARDO . She is 3 months post op. Post surgery she had home PT for 2 months and later was suppose to start outpatient PT however was unable to due to personal issues. On PT examinations she presented with no TTP, 5/10 on the L hip, no pain on R side, decreased mobility in B hip flexors, decreased strength in R LE, altered posture, gait and balance. She lives with her friend and is independent with all ADLS but has pain on L side with it. She does not work. She would benefit from skilled PT to address the aforementioned impairments and improve tolerance to functional activities. Frequency and Duration: The patient will be seen 2/week for 4 weeks Short Term Goals: 1. Pt will demonstrate initiation of HEP in 2 weeks. 2. 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 Pt will demonstrate an increase in muscle strength by 1 grade which will enable her to stand, walking and perform all ADLS without pain in 4 weeks 2. Pt will be independent with all HEP for symptom management and maintenance following d/c in 4 weeks. Treatment Plan: Modalities to reduce pain, spasms and effusion. Manual therapy to restore motion and function. Therapeutic exercise to improve strength and flexibility. Neuromuscular re-education for posture and balance. Therapeutic activities to return to functional activities of daily living. Electronically signed by: Melanie Chavez PT DPT Please sign and return to therapist. Thank you for your referral.
--- NOTE | 2024-08-01 14:10 | MHC.PT.DC ---
[facility] [place] Office [place] Office [address] [place] [address] [facility] [phone] F: [phone] F: [phone] F: [phone] F: [phone] Physical Therapy Discharge Report Diagnosis: Presence of R artificial hip joint s/p EDUARDO- R side Date of Surgery: 03/28/24 Date of Evaluation: 06/26/24 Date of Discharge: 08/01/24 Treatments to Date: 3 Cancellations to Date: 0 No Shows to Date: 0 Discharge Status: Patient Elected to Stop Discharge Summary: Ping attended 3 PT visits and d/c herself from PT due to increased pain in the other (L) hip. She is therefore being d/c from PT. Electronically signed by: Melanie Chavez, PT DPT Please sign and return to therapist. Thank you for your referral.
== END 2024-08-01 14:11 | disposition home or self-care (01) ==
LOC: HO.PT 10:57
PROVIDERS: PCP Family Medicine; Visit Provider Physician Assistant
DX: Z96.641 Presence of right artificial hip joint (principal)
CPT/HCPCS: 97110; 97161

== ENCOUNTER 2024-07-26 12:26 | Outpatient (REF) | payer MEDICARE, MEDICAID, SELFPAY ==
[2024-07-27 08:08] LABS: HPV 16,18/45 See PAP report
== END 2024-07-26 12:27 | disposition home or self-care (01) ==
LOC: HO.LNP 12:26
PROVIDERS: PCP Family Medicine; Visit Provider Obstetrics & Gynecology
DX: Z01.419 Encounter for gynecological examination (general) (routine) without abnormal findings (principal); Z11.51 Encounter for screening for human papillomavirus (HPV); Z80.41 Family history of malignant neoplasm of ovary; Z80.3 Family history of malignant neoplasm of breast
CPT/HCPCS: 87626; 88175; G0101; Q0091

== ENCOUNTER 2024-07-26 12:26 | Outpatient (AMB) | payer MEDICARE, MEDICAID, SELFPAY ==
--- NOTE | 2024-07-26 12:32 | A.OFFVIS_ITS ---
Vital Signs 07/26/24 12:37 Height 5 ft 3 in Weight 135 lb BMI 23.9 BP 126/72 Intake Visit Reasons: neoplasm of ovary/Referral Information Resource Consultant: Information Resource Consultant Present (Janna) Accompanied by: Self / Same As Patient Allergies aripiprazole [From ABILIFY] Allergy (Intermediate, Verified 07/26/24 12:35) SHAKING bupropion [From WELLBUTRIN] Allergy (Intermediate, Verified 07/26/24 12:35) SHAKING, WEAKNESS atypical antipsychotics Allergy (Intermediate, Uncoded 04/13/24 12:36) SHAKING/FEET SWELLING HPI Comments Details: Presenting for annual exam. No complaints. Last Pap/HPV was many years ago Last Mammogram was in 01/07 BI-RADS 1 Last Colonoscopy was 20 years ago No previous screening DEXA scan [facility] Medical History Arthritis GERD (gastroesophageal reflux disease) COVID-19 HTN, goal below 130/80 Personal history of nicotine dependence High cholesterol Anxiety and depression Hypertension, essential Surgical History History of right hip replacement S/P insertion of spinal cord stimulator H/O colonoscopy History of tonsillectomy History of ankle surgery History of removal of cyst Family History Father No problems noted. Mother No problems noted. Son Hypertension Sister Ovarian cancer Breast cancer Social History Household Members: Friend(s) Household Members Other:: roomate Housing: House Are you a primary home child care provider to a significant other at home: No Do you presently have visiting nurse or other home services: No Alcohol intake: former Patient Tobacco Use Status: Former Tobacco user Years Smoked: (onset 11yo, smoked for 30yrs at 1ppd, 30pyh - quit 2020 using vape e-Cigarette/Vaping Use: Currently Using service: No Current occupational status: retired Current occupational exposures/hazards: No Cognitive needs: No Hearing needs: No Vision needs: No Female Reproductive History Menstrual Age of Menarche: 11 Total pregnancies: 1 Full term: 1 History of abnormal pap smear: Yes Review of Systems Const All systems reviewed & are unremarkable except as noted in HPI and below Card Reports as per HPI Resp Reports as per HPI GI Reports as per HPI and Reports no additional complaints Reports as per HPI Physical Exam Const General: cooperative, healthy appearing and comfortable Chest Chest palpation & inspection: normal inspection of the chest and normal palpation of entire chest wall Breast/axilla inspection: normal inspection of the breasts and normal inspection of the axillae Breast/axilla palpation: normal palpation of the breasts, normal palpation of the axillae and no axillary lymphadenopathy Resp Effort & Inspection: normal respiratory effort Auscultation: clear to auscultation bilaterally Percussion: percussion normal Cardio Palpation: normal PMI Rate: regular rate Rhythm: regular rhythm Heart sounds: no murmurs and no rubs Peripheral pulses: Peripheral pulses 2+ throughout GI Inspection: Yes normal to inspection Palpation (GI): Soft to palpation, nontender, no guarding, not rigid and No hepatosplenomegaly present Percussion: Yes normal to percussion Auscultation: normal bowel sounds Rectal Exam - Female: deferred General: Yes bladder normal to palpation External Female Exam: No lesion Speculum Exam - Vagina: normal appearance of the vagina, normal palpation, normal vaginal discharge and not erythematous Speculum Exam - Cervix: normal appearance of the cervix and normal palpation Bimanual exam- vagina & uterus: normal bimanual exam, normal palpation, uterine size normal, bladder normal to palpation, consistency normal and normal palpation Bimanual Exam- Adnexa, other: normal adnexae, no masses and no tenderness Assessment & Plan Assessment & Plan (1) Family history of ovarian cancer: Code(s): Z80.41 - Family history of malignant neoplasm of ovary Category: Medical Plan: Discussed with the patient the following information regarding screening for ovarian ca: CA 125, the most widely studied tumor marker for ovarian cancer screening, is elevated in 50 to 90 percent of women with early ovarian cancer but also can be elevated in numerous other conditions. There is no evidence to support using Ca 125 as a screening in average-risk women Serial measurements of CA 125, using an algorithm that incorporates age and rate of change, may improve the positive predictive value of screening but not sufficiently to incorporate into clinical practice at this time. Transvaginal ultrasonography when used as a sole screening intervention has not been effective in identifying early-stage cancer. There is no evidence to suggest screening average-risk women for ovarian cancer Family history is essential to identify patients with potential hereditary/familial cancer syndrome. Example BRCA1 , BRCA2, Corrigan syndrome or others -High-risk family history with positive genetic testing will benefit from risk reduction bilateral salpingo-oophorectomy to reduce the risk. -Lower risk family history, patient's with remote family member with ovarian cancer without evidence of hereditary pattern, ovarian cancer risk is increased to a lesser extent than family cancer syndrome. There is no evidence that screening is effective , therefore ovarian cancer screening is generally not advised, because of the limited evidence of benefits and the potential for harm from the false-positive results. -Average risk patient's, asymptomatic woman at average risk without a genetic predisposition or family history of ovarian cancer, the recommendation is against screening for ovarian cancer since there is no evidence that the benefits of screening for ovarian cancer outweigh the harms related to the adverse effects of false-positive results. Will refer to cancer genetic at [facility] in an effort to determine the risk level and come up with the appropriate recommendation Instructed the patient to call our office back in case a referral appointment is not scheduled, missed or canceled so that we will assist on rescheduling another appointment, the patient verbalized understanding agreed with the plan. All question answered , the patient verbalized understanding. (2) Well woman exam: Code(s): Z01.419 - Encounter for gynecological examination (general) (routine) without abnormal findings Category: Medical Plan: Co testing done Counseled the patient about the recommended dietary allowance of 1200 mg of Calcium & 800 IU of vitamin D. Mammogram ordered. Referred her for screening colonoscopy done. Will order DEXA scan . The patient was instructed to perform monthly self-breast exams and to schedule a 2 week DEXA scan follow-up appointment and an annual exam in a year; All questions answered and the patient verbalized understanding. (3) Family history of breast cancer: Code(s): Z80.3 - Family history of malignant neoplasm of breast Category: Medical Plan: TC risk= 8.9%, spite of the the patient's family history, her breast cancer lifetime risk is not above 20%. Orders: Orders MM tomosynthesis screening BI Today Z12.31 - Encounter for screening mammogram for malignant neoplasm of breast XR DEXA axial skeleton Today Z78.0 - Asymptomatic menopausal state Referrals Genetics Referral Z80.3 - Family history of malignant neoplasm of breast, Z80.41 - Family history of malignant neoplasm of ovary Gastroenterology Referral Z12.11 - Encounter for screening for malignant neoplasm of colon Coding Level of Care Code Est Pt Prev Care >65y(40411) Diagnoses Family history of ovarian cancer Z80.41 Well woman exam Z01.419 Family history of breast cancer Z80.3
[2024-07-26 12:37] VITALS: BP 126/72; BMI 23.9
== END 2024-07-26 13:28 | disposition home or self-care (01) ==
LOC: HO.HWS 12:26
PROVIDERS: PCP Family Medicine; Visit Provider Obstetrics & Gynecology
DX: Z01.419 Encounter for gynecological examination (general) (routine) without abnormal findings (principal); Z80.41 Family history of malignant neoplasm of ovary; Z80.3 Family history of malignant neoplasm of breast
CPT/HCPCS: G0101; Q0091

== ENCOUNTER 2024-08-14 07:50 | Outpatient (REF) | payer MEDICARE, MEDICAID, SELFPAY ==
--- NOTE | ~2024-08-14 | XR_ITS ---
EXAMINATION: XR PELVIS CLINICAL INFORMATION: M25.559 - Pain in unspecified hip COMPARISON: X-ray dated March 29, 2024 TECHNIQUE: AP view of the pelvis. FINDINGS: Sclerosis with subchondral cyst formation along the articular margin of the left acetabulum and left femoral head with asymmetric joint space narrowing. No acute cortical disruption. Metallic reservoir for an intraspinal canal stimulator device overlapping the right iliac bone with 2 electrodes towards the lumbar spine no fully included in the exam. Total metallic prosthesis with an acetabular and femoral component in the right hip without loosening or cortical disruption nor malalignment. XR/XR pelvis 1-2V IMPRESSION: Moderate to severe osteoarthrosis, left coxofemoral joint. Total right hip arch plasty prosthesis intact with normal alignment. Electronically signed by: Reuben Boyce MD 08/15/2024 07:19 AM VI WILSON
== END 2024-08-14 07:51 | disposition home or self-care (01) ==
LOC: HO.HOSX 07:50
PROVIDERS: Visit Provider Orthopaedic Surgery
DX: M25.552 Pain in left hip (principal); M16.12 Unilateral primary osteoarthritis, left hip
CPT/HCPCS: 72170; 99212

== ENCOUNTER 2024-08-14 12:04 | Outpatient (AMB) | payer MEDICARE, MEDICAID, SELFPAY ==
--- NOTE | 2024-08-14 12:12 | MHC.OFFVIS ---
Vital Signs 08/14/24 12:21 Height 5 ft 3 in Weight 135 lb BMI 23.9 Intake Visit Reasons: Newprob-Left hip pain radiating down leg Intake Note: Ping is a 69 year old female who presents today for a new problem visit with complaints of left hip pain. Hx of Right EDUARDO 03/28/2024. Patient reports that she has had left hip pain since june of 2024. She reports that the pain is felt in the lateral aspect of the hip and thr groin, the pain will occasionally run down the leg to her toes. Denies numbness and tingling. She is taking Cyclobenzaprine which is helping but she thinks it is onlyhelping because it makes her tired. Allergies aripiprazole [From ABILIFY] Allergy (Intermediate, Verified 08/14/24 12:24) SHAKING bupropion [From WELLBUTRIN] Allergy (Intermediate, Verified 08/14/24 12:24) SHAKING, WEAKNESS atypical antipsychotics Allergy (Intermediate, Uncoded 08/14/24 12:24) SHAKING/FEET SWELLING HPI HPI Newprob-Left hip pain radiating down leg: Details: Ping is a 69 year old female who presents today for a new problem visit with complaints of left hip pain. Hx of Right EDUARDO 03/28/2024. Patient reports that she has had left hip pain since june of 2024. She reports that the pain is felt in the lateral aspect of the hip and through groin. Denies numbness and tingling. She is taking Cyclobenzaprine which is helping but she thinks it is only helping because it makes her tired. She is unable to ambulate comfortably and feels the quality of her life is diminished. She recently had a successful right hip replacement and this feels very similar to that. [facility] Medical History Arthritis GERD (gastroesophageal reflux disease) COVID-19 HTN, goal below 130/80 Personal history of nicotine dependence High cholesterol Anxiety and depression Hypertension, essential Surgical History History of right hip replacement S/P insertion of spinal cord stimulator H/O colonoscopy History of tonsillectomy History of ankle surgery History of removal of cyst Family History Father No problems noted. Mother No problems noted. Son Hypertension Sister Ovarian cancer Breast cancer Social History Household Members: Friend(s) Household Members Other:: roomate Housing: House Are you a primary acute care registered nurse to a significant other at home: No Do you presently have visiting nurse or other home services: No Alcohol intake: former Patient Tobacco Use Status: Former Tobacco user Years Smoked: (onset 11yo, smoked for 30yrs at 1ppd, 30pyh - quit 2020 using vape e-Cigarette/Vaping Use: Currently Using service: No Current occupational status: retired Current occupational exposures/hazards: No Cognitive needs: No Hearing needs: No Vision needs: No Female Reproductive History Menstrual Age of Menarche: 11 Physical Exam Vital Signs: BMI result Body Mass Index 23.9 Extrem Other: Positive impingement test left hip. Minimal internal rotation and when she is flexion I internally rotated reproduces her primary complaint. Results Reviewed Results Reviewed: I personally reviewed relevant radiographs. Right EDUARDO in expected post operative position with no hardware complications or evidence of loosening Left hip severe OA with complete loss of joint space Assessment & Plan Assessment & Plan (1) Osteoarthritis of left hip: Code(s): M16.12 - Unilateral primary osteoarthritis, left hip Category: Medical Plan: This is a 69-year-old woman with left hip osteoarthritis. It is severe and she is disabled because of it. She recently had a successful right hip replacement. She would like to be able to walk comfortably without pain. I recommend left hip arthroplasty. I discussed the risks benefits and alternatives including but not limited to the risk of pain, infection, stiffness, dislocation, fracture, need for further surgery as well as potential medical complications such as blood clots, pulmonary embolism and cardiac complications. She very recently had a right hip done and so she is very aware of these risks and the alternatives. Do a proceed forward accordingly. Orders: Orders XR pelvis 1-2V Today M25.559 - Pain in unspecified hip Coding Level of Care Code Est Pt Level 4 (08939) Diagnoses Osteoarthritis of left hip M16.12
[2024-08-14 12:21] VITALS: BMI 23.9
== END 2024-08-14 12:53 | disposition home or self-care (01) ==
PROVIDERS: PCP Family Medicine; Visit Provider Orthopaedic Surgery
DX: M16.12 Unilateral primary osteoarthritis, left hip (principal)
CPT/HCPCS: 99214

== ENCOUNTER → 2024-08-14 12:16 | Outpatient (BNV) | payer MEDICARE, MEDICAID, SELFPAY | PROVIDERS: Visit Provider Radiology Diagnostic Radiology | DX: M16.12 Unilateral primary osteoarthritis, left hip (principal) | CPT/HCPCS: 72170 ==

== ENCOUNTER 2024-08-17 10:40 | Outpatient (AMB) | payer MEDICARE, MEDICAID, SELFPAY ==
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
[2024-08-17 10:58] VITALS: BP 103/60; PULSE 70; RESP 14; TEMP 37.3; O2SAT 100; BMI 24.8
== END 2024-08-17 11:29 | disposition home or self-care (01) ==
PROVIDERS: PCP Family Medicine; Visit Provider Family Medicine
DX: I10 Essential (primary) hypertension (principal); E78.00 Pure hypercholesterolemia, unspecified; Z12.11 Encounter for screening for malignant neoplasm of colon; Z12.31 Encounter for screening mammogram for malignant neoplasm of breast; Z13.820 Encounter for screening for osteoporosis

== ENCOUNTER 2024-08-17 11:37 | Outpatient (REF) | payer MEDICARE, MEDICAID, SELFPAY ==
[2024-08-17 15:00] LABS: Alanine Aminotransferase 16 U/L (0-31); Alkaline Phosphatase 78 U/L (39-117); Anion Gap 10 (12-20); Aspartate Amino Transferase 26 U/L (5-31); Bilirubin Total 0.3 mg/dL (0.0-1.0); Blood Urea Nitrogen 9 mg/dL (9-16); Calcium 8.5 mg/dL (8.4-10.2); Carbon Dioxide 32 mmol/L (22-29); Chloride 102 mmol/L (96-108); Cholesterol 242 mg/dL (<200); Estimated Glomerular Filt Rate > 60; Glucose Random 74 mg/dL (60-115); HDL Cholesterol 62 mg/dL (>40); LDL Cholesterol Calculated 142 mg/dL (<100); Potassium 4.6 mmol/L (3.3-5.1); Sodium 139 mmol/L (135-145); Total Protein 6.6 g/dL (6.5-8.0); Triglycerides 190 mg/dL (<150)
[2024-08-18 09:43] LABS: LDL Cholesterol Direct 149 mg/dL (<100)
== END 2024-08-17 11:38 | disposition home or self-care (01) ==
LOC: HO.WFDLDS 11:37
PROVIDERS: Visit Provider Family Medicine
DX: Z00.00 Encounter for general adult medical examination without abnormal findings (principal); E78.5 Hyperlipidemia, unspecified; E78.00 Pure hypercholesterolemia, unspecified
CPT/HCPCS: 36415; 80053; 80061; 83721; 99212

== ENCOUNTER → 2024-08-28 11:28 | Outpatient (BNVA) | payer MEDICARE, MEDICAID, SELFPAY | PROVIDERS: PCP Family Medicine | DX: Z01.818 Encounter for other preprocedural examination (principal) ==

== ENCOUNTER 2024-09-06 12:17 | Outpatient (AMB) | payer MEDICARE, MEDICAID, SELFPAY ==
--- NOTE | 2024-09-06 12:21 | A.OFFPC_ITS ---
Vital Signs 09/06/24 12:27 Height 5 ft 3 in Weight 139 lb BMI 24.6 BP 117/69 Blood Pressure Location Rt brachial Position Sitting Respiration 16 Pulse 75 Pulse Source Pulse Oximeter Temp 98.2 F Temp Source Oral Pulse Oximetry (%) 99 Oxygen Delivery Method Room Air Intake Visit Reasons: Dr. Centeno's pt. 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 Required: No Is last menstrual period known: No Post menopausal: No Patient : No Allergies aripiprazole [From ABILIFY] Allergy (Intermediate, Verified 09/06/24 12:36) SHAKING bupropion [From WELLBUTRIN] Allergy (Intermediate, Verified 09/06/24 12:36) SHAKING, WEAKNESS atypical antipsychotics Allergy (Intermediate, Uncoded 09/06/24 12:36) SHAKING/FEET SWELLING Medication List - Last Reconciled 09/06/24 by Mely Brooks CNP amlodipine 5 mg PO BID 90 days atorvastatin 20 mg PO BEDTIME 90 days citalopram 40 mg PO DAILY 90 days clonidine HCl 0.2 mg PO Q8H PRN MDD 3 cyclobenzaprine 10 mg PO TID PRN gabapentin 800 mg PO TID hydroxyzine HCl 25 mg PO BEDTIME 30 days omeprazole 20 mg (1/2 x 40 mg) PO DAILY@0630 30 days [Raised toilet seat raised toilet seat WITH HANDLES; and round seat] valsartan 320 mg PO DAILY 90 days walker Folding Front wheeled walker Tobacco use date assessed: 09/06/24 Fall risk assessment: No Falls in past year Last assessed Fall Risk: 09/06/24 Dental Screening Dental Screen Date: 09/06/24 Did you have a dental visit in the last 12 months?: No Did you have a dental problem in the last 6 months where you did not have access to dental care?: No Was dental information given to patient?: Patient has dentist HPI HPI Comments History of Present Illness Details 69-year-old female presents for preop cl earance for total left hip replacement with Dr. Wall, scheduled for 10/03/2024 She is a patient of Dr. Centeno. She admits to taking her medications as prescribed without adverse reactions. Her only complaint today is constant dull, left hip pain for the past 3 weeks. No tingling, numbness, or loss of sensation. She takes gabapentin as prescribed for pain. She request a refill for cyclobenzaprine. [facility] Medical History Arthritis GERD (gastroesophageal reflux disease) COVID-19 HTN, goal below 130/80 Personal history of nicotine dependence High cholesterol Anxiety and depression Hypertension, essential Surgical History History of right hip replacement S/P insertion of spinal cord stimulator H/O colonoscopy History of tonsillectomy History of ankle surgery History of removal of cyst Family History Father No problems noted. Mother No problems noted. Son Hypertension Sister Ovarian cancer Breast cancer Social History Household Members: Friend(s) Household Members Other:: roomate Housing: House Are you a primary child care attendant school to a significant other at home: No Do you presently have visiting nurse or other home services: No Alcohol intake: former Patient Tobacco Use Status: Former Tobacco user Years Smoked: (onset 11yo, smoked for 30yrs at 1ppd, 30pyh - quit 2020 using vape e-Cigarette/Vaping Use: Currently Using Patient : No service: No Current occupational status: retired Current occupational exposures/hazards: No Cognitive needs: No Hearing needs: No Vision needs: No Female Reproductive History Menstrual Age of Menarche: 11 Questionnaire PHQ-9 Over the last 2 weeks, how often have you been bothered by any of the following problems? 1. Little interest or pleasure in doing things: not at all 2. Feeling down, depressed, or hopeless: not at all 3. Trouble falling or staying asleep, or sleeping too much: not at all 4. Feeling tired or having little energy: not at all 5. Poor appetite or overeating: not at all 6. Feeling bad about yourself - or that you are a failure or have let yourself or your family down: not at all 7. Trouble concentrating on things, such as reading the newspaper or watching television: not at all 8. Moving or speaking so slowly that other people could have noticed. Or the opposite - being so fidgety or restless that you have been moving around a lot more than usual: not at all 9. Thoughts that you would be better off or of hurting yourself in some way: not at all Total score: 0 Depression Screening Interpretation: Negative Depression Screening Done: Yes 58550 - PHQ-9 Billing: Yes Source: Developed by Drs. Moose Castillo, Christina Schmidt, Aubrey Min and colleagues, with an educational enzo from [employer]. Thrive Questionnaire Date Thrive assessed: 09/06/24 I am a: Patient What is your living situation today?: I have a steady place to live Within the past 12 months, did the food you bought not last and you didn't have the money to get more?: I choose not to answer this question Within the past 12 months, did you worry whether your food would run out before you got money to buy more?: I choose not to answer this question Do you have trouble paying for medicines?: I choose not to answer this question Do you have trouble getting transportation to medical appointments?: I choose not to answer this question Do you have trouble paying your heating and electricity bill?: I choose not to answer this question Do you have trouble taking care of your child, family member or friend?: I choose not to answer this question Do you have trouble with day-to-day activities such as bathing, preparing meals, shopping, managing finances, etc.?: I choose not to answer this question Are you currently unemployed and looking for a job?: I choose not to answer this question Are you interested in more education?: I choose not to answer this question Please select the resources that you would like help with: None Currently or been in a relationship where the following occur: Made to feel afraid THRIVE Score: 1 AUDIT C Alcohol Use Questionnaire (AUDIT-C) 1. How often do you have a drink containing alcohol?: Never Total Score: 0 BERNICE-7 AMB Questionnaire BERNICE-7 Date BERNICE - 7 assessed: 09/06/24 Feeling nervous, anxious, or on edge: 1 = Several days Not being able to stop or control worryin = Not at all Worrying too much about different things: 0 = Not at all Trouble relaxin = Several days Being so restless that it is hard to sit still: 0 = Not at all Becoming easily annoyed or irritable: 0 = Not at all Feeling afraid as if something awful might happen: 0 = Not at all Total BERNICE-7 score (0-4 normal; 5-9 mild; 10-14 moderate; 15-21 severe): 2 Source: Developed by Drs. Moose Castillo, Christina Schmidt, Aubrey Min and colleagues, with an educational enzo from [employer]. BERNICE-7 Assessment Billing BERNICE-7 Assessment Tool: BERNICE-7 Assessment 02848 Review of Systems Const Details: Const Denies chills, Denies fatigue, Denies fever(s), Denies headache(s) and Denies weakness ENT Denies dizziness and Denies headache(s) Card Denies chest pain, Denies lightheadedness, Denies dyspnea and Denies other (Palpitations) Resp Denies cough, Denies dyspnea, Denies wheezing and Denies other ( shortness of breath) GI Denies abdominal pain, Denies melena, Denies hematochezia, Denies change in bowel habits, Denies dyspepsia and Denies nausea Denies hematuria and Denies dysuria Musc Reports as per HPI Skin/Breast Denies rash, Denies unusual bruising and Denies wounds Neuro Denies abnormal gait, Denies dizziness, Denies headache(s), Denies memory loss, Denies numbness, Denies Sensory deficit (Neuro), Denies tingling and Denies weakness Psych Denies anxiety, Denies depression, Denies memory loss Endo Denies cold intolerance, Denies fatigue, Denies heat intolerance, Denies polydipsia and Denies polyuria Aller/Immun Denies wheezing Physical exam (Primary Care) Vital Signs: Last Vital Signs Temp 98.2 F 09/06/24 12:27 Pulse 75 09/06/24 12:27 Resp 16 09/06/24 12:27 BP 117/69 09/06/24 12:27 Pulse Ox 99 09/06/24 12:27 Oxygen Delivery Method Room Air 09/06/24 12:27 BMI result Body Mass Index 24.6 Tobacco/Smoking Status: Tobacco use Status Tobacco use date assessed 09/06/24 09/06/24 12:31 Patient Tobacco Use Status Former Tobacco user 09/06/24 12:23 e-Cigarette/Vaping Use Currently Using 09/06/24 12:23 PHQ-9: PHQ-9 Score PHQ-9: Total score 0 09/06/24 12:31 Depression Screening Interpretation: Negative Thrive Assessment: Date of Thrive Assessment Date Thrive assessed 09/06/24 09/06/24 12:31 Currently or been in a relationship where the following occur: Made to feel afraid Const Other: General: no acute distress and well developed Nutritional Appearance: well nourished Orientation/consciousness: patient oriented x3 HENMT Head: Yes normocephalic and Yes atraumatic Eyes General: appearance normal, both eyes and all related structures Pupils: Equal, round and reactive pupils present EOM: EOMs intact bilaterally Resp Effort & Inspection: normal respiratory effort Auscultation: clear to auscultation bilaterally Cardio Rate: regular rate Rhythm: regular rhythm Heart sounds: S1 normal heart sound present, S2 normal heart sound present, no gallops, no murmurs and no rubs GI Palpation (GI): No Abdominal aortic bruit present, Soft to palpation, nontender, No hepatosplenomegaly present and No Rebound tenderness present Auscultation: normal bowel sounds General: Yes no CVA tenderness Back/Spine/Pelvis Back: no CVA tenderness Cervical Spine: cervical ROM normal and No Cervical spine tenderness Thoracic/Lumbar Spine: thoraco-lumbar ROM normal, No pain with thoraco-lumbar ROM, No thoracic spinal tenderness and No lumbar spinal tenderness Extrem General: Yes normal to inspection, No edema and No calf tenderness Skin General: warm and dry. Normal skin color. Normal skin turgor Neuro General: patient oriented x3, gait normal and no focal neuro deficit Cranial nerves: Yes Equal, round and reactive pupils present Cognition (Neuro): normal cognition Gait exam (Neuro): Normal gait present Sensory Exam: No Sensory deficit (Neuro) Psych Appearance: grossly normal Affect: normal affect Attitude: cooperative Thought process: Normal thought process present Results AMB Hemoglobin A1c AMB Hemoglobin A1c 5.0 % Last Edit by Eryn Wall on 09/06/24 12:53 Coding Level of Care Code Est Pt Level 4 (98002) Diagnoses Pre-op exam Z01.818 Left hip pain M25.552 Additional Codes BERNICE-7 Assessment Billing - BERNICE-7 Assessment Tool: BERNICE-7 Assessment 54994 ([id number]) PHQ-9 - 81369 - PHQ-9 Billing: Yes ([id number]) Assessment & Plan Assessment & Plan (1) Pre-op exam: Code(s): Z01.818 - Encounter for other preprocedural examination Category: Medical Plan: Normal physical and neuro exam. Vital signs stable. Recent electrolytes, kidney, and liver function in July were unremarkable. RBC and H&H levels in 05/2024 were low, 3.18 and 8.8/27.4 respectively. CBC was unremarkable on 03/23/2024, before she had right hip replacement surgery on 03/28/2024. Anemia was likely due to surgery. Will recheck CBC before clearance. Fasting blood glucose was elevated twice in 05/2024, 104 and 122. A1c checked today, 5.0%. Patient is medically stable at this time. She will be cleared left hip surgery pending CBC results. (2) Left hip pain: Code(s): M25.552 - Pain in left hip Category: Medical Plan: Gabapentin and cyclobenzaprine as prescribed. Warm/cool compresses encouraged. Follow-up with orthopedic surgery as planned. Less understanding and agreed with the treatment plan. Orders: Orders AMB Hemoglobin A1c Today Z13.9 - Encounter for screening, unspecified Medications: Refilled cyclobenzaprine 10 mg PO TID PRN 90 tabs 1RF for muscle spasm M53.3 - Sacrococcygeal disorders, not elsewhere classified, M54.40 - Lumbago with sciatica, unspecified side
[2024-09-06 12:27] VITALS: BP 117/69; PULSE 75; RESP 16; TEMP 36.8; O2SAT 99; BMI 24.6
== END 2024-09-06 13:00 | disposition home or self-care (01) ==
PROVIDERS: PCP Family Medicine; Visit Provider Nurse Practitioner Family
DX: Z01.818 Encounter for other preprocedural examination (principal); M25.552 Pain in left hip; Z13.9 Encounter for screening, unspecified

== ENCOUNTER 2024-09-06 13:18 | Outpatient (REF) | payer MEDICARE, MEDICAID, SELFPAY ==
[2024-09-06 18:04] LABS: MANUAL DIFF FLAG NO
[2024-09-06 18:24] LABS: Cholesterol 177 mg/dL (<200); HDL Cholesterol 69 mg/dL (>40); LDL Cholesterol Calculated 83 mg/dL (<100); Triglycerides 125 mg/dL (<150)
[2024-09-06 18:31] LABS: Basophils Percent Auto 0.6 % (0-2); Eosinophils Absolute Auto 0.1 X10*3/uL (0.0-0.4); Hemoglobin 10.9 g/dl (12.0-16.0); Imm Gran Abs Auto 0.01 X10*3/uL (0.00-0.03); Imm Gran Pct Auto 0.2 % (0.0-0.4); Lymphocytes Absolute Auto 1.2 X10*3/uL (1.2-4.9); Lymphocytes Percent Auto 22.7 % (20-40); Mean Corpuscular HGB Conc 32.1 g/dl (31.0-35.0); Mean Corpuscular Hemoglobin 26.6 pg (27.0-33.0); Mean Corpuscular Volume 82.9 fL (80.0-98.0); Mean Platelet Volume 11.5 fL (9.4-12.3); Monocytes Absolute Auto 0.5 X10*3/uL (0.1-1.2); Monocytes Percent Auto 9.3 % (2-11); Neutrophils Absolute Auto 3.4 x10*3/uL (2.0-8.3); Neutrophils Percent Auto 66.2 % (45-73); Platelet Count 221 X10*3/uL (160-400); Red Cell Distribution Width 14.4 % (11.0-16.0); White Blood Count 5.1 X10*3/uL (4.8-10.8)
== END 2024-09-06 13:19 | disposition home or self-care (01) ==
LOC: HO.WFDLDS 13:18
PROVIDERS: Referring Provider Nurse Practitioner Family; Visit Provider Family Medicine
DX: Z01.818 Encounter for other preprocedural examination (principal); M25.552 Pain in left hip; E78.5 Hyperlipidemia, unspecified; Z13.1 Encounter for screening for diabetes mellitus
CPT/HCPCS: 36415; 80061; 83036; 85025; 96127; 99212

== ENCOUNTER → 2024-09-07 12:54 | Outpatient (BNV) | payer MEDICARE, MEDICAID, SELFPAY | PROVIDERS: PCP Family Medicine; Visit Provider Internal Medicine | DX: I44.0 Atrioventricular block, first degree (principal); I44.7 Left bundle-branch block, unspecified | CPT/HCPCS: 93010 ==

== ENCOUNTER 2024-09-15 10:49 | Outpatient (REF) | payer MEDICARE, MEDICAID, SELFPAY ==
--- NOTE | ~2024-09-15 | MM_ITS ---
EXAMINATION: MM SCREENING DIGITAL BREAST TOMOSYNTHESIS, BILATERAL CLINICAL INFORMATION: Screening. Asymptomatic. COMPARISON: Mammography: Comparison is made with available priors TECHNIQUE: Digital breast mammography with tomosynthesis is performed in both the craniocaudal and mediolateral oblique views along with computer-aided detection (CAD). FINDINGS: There are scattered areas of fibroglandular density (ACR BI-RADS breast composition Category b). There are no significant masses, abnormal calcifications, or other abnormalities. MM/MM tomosynthesis screening BI IMPRESSION: No mammographic evidence of malignancy. ASSESSMENT: BI-RADS BI-RADS 1 - Negative RECOMMENDATION: Routine annual mammography screening. 1 year F/U This examination should not preclude the clinical evaluation of a suspicious palpable abnormality. This patient's information was entered into a reminder system with a target due date for their next mammogram. Electronically signed by: Katiana Hall DO 09/19/2024 04:22 PM VI
--- NOTE | ~2024-09-15 | MM_ITS ---
EXAMINATION: DXA BONE DENSITY AXIAL HISTORY: Estrogen deficiency TECHNIQUE: [employer] Dual energy absorptiometry (DEXA) of the lumbar spine, total left hip, and femoral neck was performed. COMPARISON: There are no prior studies for comparison. FINDINGS: The bone mineral density of the lumbar spine is 1.166 with a T-score of -0.1, and a Z-score of 1.6. The bone mineral density of the left total hip is 0.883 with a T-score of -1.0, and a Z-score of 0.5. The bone mineral density of the left femoral neck is 0.875 with a T-score of -1.2, and a Z-score of 0.5. FRACTURE RISK: The FRAX index suggests a risk of major osteoporotic fracture of 14.7%, and of hip fracture 1.6%. MM/XR DEXA axial skeleton IMPRESSION: Based on bone mineral density, and according to World Health Organization (WHO) criteria, the diagnosis is consistent with osteopenia. All bone density values are in grams per centimeter squared (g/cm2). Statistically, 68% of repeat scans fall within 1 SD (+/- 0.010 g/cm2 for AP spine L1-L4) and 1 SD (+/- 0.012 g/cm2 for femur total) FRAX is a trademark of the [employer], a World Health Organization (WHO) Collaborating Center. Electronically signed by: Moose Cleveland MD 09/18/2024 07:03 AM VI
== END 2024-09-15 10:50 | disposition home or self-care (01) ==
LOC: HO.MAMMO 10:49
PROVIDERS: PCP Family Medicine; Visit Provider Obstetrics & Gynecology
DX: Z12.31 Encounter for screening mammogram for malignant neoplasm of breast (principal); Z13.820 Encounter for screening for osteoporosis; Z78.0 Asymptomatic menopausal state
CPT/HCPCS: 77063; 77067; 77080

== ENCOUNTER → 2024-09-15 11:30 | Outpatient (BNV) | payer MEDICARE, MEDICAID, SELFPAY | PROVIDERS: PCP Family Medicine; Visit Provider Radiology Diagnostic Radiology | DX: Z12.31 Encounter for screening mammogram for malignant neoplasm of breast (principal) | CPT/HCPCS: 77063; 77067 ==

== ENCOUNTER 2024-09-19 08:27 | Outpatient (AMB) | payer MEDICARE, MEDICAID, SELFPAY ==
[2024-09-19 08:28] VITALS: BP 112/50; PULSE 71; BMI 24.4
--- NOTE | 2024-09-19 08:28 | A.OFFVIS_ITS ---
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 Required: No Accompanied by: Self / Same As Patient Allergies aripiprazole [From ABILIFY] Allergy (Intermediate, Verified 09/06/24 12:36) SHAKING bupropion [From WELLBUTRIN] Allergy (Intermediate, Verified 09/06/24 12:36) SHAKING, WEAKNESS atypical antipsychotics Allergy (Intermediate, Uncoded 09/06/24 12:36) SHAKING/FEET SWELLING Medication List - Last Reconciled 09/19/24 by Raymundo Bai MD amlodipine 5 mg PO BID 90 days atorvastatin 20 mg PO BEDTIME 90 days citalopram 40 mg PO DAILY 90 days clonidine HCl 0.2 mg PO Q8H PRN MDD 3 cyclobenzaprine 10 mg PO TID PRN gabapentin 800 mg PO TID hydroxyzine HCl 25 mg PO BEDTIME 30 days omeprazole 40 mg PO DAILY@0630 [Raised toilet seat raised toilet seat WITH HANDLES; and round seat] valsartan 320 mg PO DAILY 90 days walker Folding Front wheeled walker HPI Comments Details: Ping has been referred for preoperative risk stratification for hip surgery. A recent EKG has shown left bundle-branch block. Patient states that she has been told to have left bundle-branch block in the past. However, the last EKG from 2022 does not show that. In 2017, it seems that she has seen Cardiology at [place]. Based on that note, there is history of NSTEMI in 2016 setting of polysubstance abuse. It seems that she had a stress test arrange that time but not clear if it was followed through. Otherwise, she states that she feels well. She does not have any clear-cut complaints like angina or shortness of breath within limits of her activity. On meds for hypertension and dyslipidem ia. She had a right hip surgery done last year and that was apparently uneventful. Now she needs left hip done. [facility] Medical History (Updated 09/19/24 @ 08:44 by Raymundo Bai MD) History of MRSA infection Arthritis GERD (gastroesophageal reflux disease) COVID-19 HTN, goal below 130/80 Personal history of nicotine dependence High cholesterol Anxiety and depression Hypertension, essential Surgical History History of right hip replacement S/P insertion of spinal cord stimulator H/O colonoscopy History of tonsillectomy History of ankle surgery History of removal of cyst Family History Father No problems noted. Mother No problems noted. Son Hypertension Sister Ovarian cancer Breast cancer Social History Household Members: Friend(s) Household Members Other:: roomate Housing: House Are you a primary family day care provider to a significant other at home: No Do you presently have visiting nurse or other home services: No Alcohol intake: former Patient Tobacco Use Status: Former Tobacco user Years Smoked: (onset 11yo, smoked for 30yrs at 1ppd, 30pyh - quit 2020 using vape e-Cigarette/Vaping Use: Currently Using service: No Current occupational status: retired Current occupational exposures/hazards: No Cognitive needs: No Hearing needs: No Vision needs: No Female Reproductive History Menstrual Age of Menarche: 11 Review of Systems Const Denies chills, Denies daytime sleepiness, Denies fatigue, Denies fever(s), Denies poor appetite, Denies snoring, Denies stops breathing during sleep, Denies weakness, Denies weight gain and Denies weight loss Eyes Denies loss of vision ENT Denies dizziness and Denies hearing loss Card Denies chest pain, Denies irregular heart rhythm, Denies claudication, Denies leg edema, Denies lightheadedness, Denies palpitations, Denies dyspnea on exertion and Denies orthopnea Resp Denies cough, Denies excessive phlegm production, Denies dyspnea on exertion, Denies snoring and Denies wheezing GI Denies abdominal pain, Denies hematochezia, Denies change in bowel habits, Denies nausea and Denies vomiting Denies urinary frequency and Denies dysuria Musc Denies arthralgias, Denies muscle weakness, Denies numbness and Denies other Skin/Breast Denies nail changes and Denies rash Neuro Denies Abnormal speech present, Denies dizziness, Denies loss of vision, Denies memory loss, Denies numbness and Denies weakness Psych Denies depression and Denies memory loss Endo Denies fatigue and Denies palpitations Jose/Lymph Denies easy bruising Aller/Immun Denies wheezing Physical Exam Vital Signs: Last Vital Signs Pulse 71 09/19/24 08:28 BP 112/50 L 09/19/24 08:28 BMI result Body Mass Index 24.4 Const General: comfortable and no acute distress Orientation/consciousness: patient oriented x3 HEENT Other: Unremarkable Head: Yes normal to inspection Neck Neck: Yes normal visual inspection Chest Chest palpation & inspection: normal inspection of the chest Resp Auscultation: clear to auscultation bilaterally Cardio Palpation: normal PMI Heart sounds: S1 normal heart sound present, S2 normal heart sound present, no gallops, no murmurs and no rubs GI Palpation (GI): Soft to palpation Back/Spine/Pelvis Other: unremarkable Skin General skin exam: no rashes or lesions noted Neuro General: patient oriented x3 Speech: No Abnormal speech present Extrem General: Yes normal to inspection Psych Mental Status: mental status grossly normal Office Procedures EKG Details: EKG with sinus rhythm with a left bundle-branch block pattern. [id number], Complete Assessment & Plan Assessment & Plan (1) Preoperative cardiovascular examination: Code(s): Z01.810 - Encounter for preprocedural cardiovascular examination Category: Medical (2) Left bundle branch block (LBBB) on electrocardiogram: Code(s): I44.7 - Left bundle-branch block, unspecified Category: Medical (3) Hypertension, essential: Code(s): I10 - Essential (primary) hypertension Category: Medical (4) High cholesterol: Code(s): E78.00 - Pure hypercholesterolemia, unspecified Category: Medical Plan EKG from today and from last month shows left bundle-branch block. A prior EKG from 2022 shows sinus rhythm with mild T inversions somewhat diffusely. In even earlier EKGs, the T inversions are more prominent. In some other EKGs, the T- waves are upright. Around 2016, the T inversions are very prominent. In 2012, normal sinus rhythm. Overall, reviewed all the EKGs going back till 2011. Recommend she gets an echocardiogram and pharmacological perfusion imaging study. We will need to review these and then make an addendum to note. Discussed with patient about plan and she agrees. Based on surgery date, we will schedule these as soon as possible. Orders: Orders CA echo transthoracic complete Today Raymundo Bai MD I44.7 - Left bundle-branch block, unspecified, Z01.810 - Encounter for preprocedural cardiovascular examination CA lexiscan stress w colten Today Raymundo Bai MD I20.9 - Angina pectoris, unspecified, I44.7 - Left bundle-branch block, unspecified, Z01.810 - Encounter for preprocedural cardiovascular examination NM cardiolite stress test Today Raymundo Bai MD I44.7 - Left bundle- branch block, unspecified, R07.2 - Precordial pain, Z01.810 - Encounter for preprocedural cardiovascular examination Medications: Changed From omeprazole 20 mg (1/2 x 40 mg) PO DAILY@0630 30 days 15 caps 0RF To omeprazole 40 mg PO DAILY@0630 Angel Centeno MD Coding Level of Care Code New Pt Level 4 (05656) Complex EM visit Add On G2211 Diagnoses Preoperative cardiovascular examination Z01.810 Left bundle branch block (LBBB) on electrocardiogram I44.7 Hypertension, essential I10 High cholesterol E78.00 CPT Codes EKG - CPT: 68475-[id number], Complete ([id number])
== END 2024-09-19 08:54 | disposition home or self-care (01) ==
PROVIDERS: PCP Family Medicine; Visit Provider Internal Medicine
DX: I44.7 Left bundle-branch block, unspecified (principal); I10 Essential (primary) hypertension; E78.00 Pure hypercholesterolemia, unspecified; Z01.810 Encounter for preprocedural cardiovascular examination
CPT/HCPCS: 93010; 99214; G2211

== ENCOUNTER → 2024-09-19 08:27 | Outpatient (BNVA) | payer MEDICARE, MEDICAID, SELFPAY | PROVIDERS: PCP Family Medicine; Visit Provider Internal Medicine | DX: Z01.810 Encounter for preprocedural cardiovascular examination (principal); I44.7 Left bundle-branch block, unspecified; I10 Essential (primary) hypertension; E78.00 Pure hypercholesterolemia, unspecified | CPT/HCPCS: 93005; 99212 ==

== ENCOUNTER → 2024-09-20 10:43 | Outpatient (REF) | payer MEDICARE, MEDICAID, SELFPAY ==
--- NOTE | 2024-09-20 10:46 | CA_ITS ---
Transthoracic Echocardiogram Patient (Last, First, Middle): Ping Becerril M Gender: Female Date of : 1955 Age: 69 Procedure Date: 09/20/2024 Procedure Type: Transthoracic Echocardiogram Location: OP Height: 160.02 cm Weight: 62.6 kg BSA: 1.65 m2 Heart Rate: bpm BP: 122 / 50 mmHg Scaffold Builder: LAURIE Referring MD: Raymundo Bai MD Multi Line Claims Adjuster: Fran Lobo MD Symptoms: Z01.810 - Encounter for preprocedural cardiovascular examination Study Quality: Adequate ECG Rhythm: Sinus Conclusions: - 1. Normal LV ejection fraction of 60-65% with impaired relaxation filling pattern 2. Moderately dilated left atrium 3. Normal cardiac valvular Dopplers 4. Normal RV systolic pressure 5. No gross pericardial effusion Findings Left Ventricle Normal left ventricular size, thickness, and systolic function. The visually estimated ejection fraction is between 60-65%. Spectral Doppler is indicative of an impaired relaxation filling pattern. E/E prime ratio is between 8 and 15 consistent with indeterminate filling pressures. Right Ventricle Normal right ventricular cavity size and systolic function. Atria The left atrium is moderately dilated. There is no evidence of interatrial shunt. The right atrium is mildly dilated. Aortic Valve The aortic valve structure and function is likely normal. There is no aortic valve stenosis. There is no aortic valve regurgitation. Mitral Valve Normal mitral valve structure and function. There is trace mitral valve regurgitation. There is no mitral valve stenosis. Pulmonic Valve The pulmonic valve is likely normal. Tricuspid Valve Normal tricuspid valve structure. There is trace tricuspid valve regurgitation. The right ventricular systolic pressure is normal. Normal right atrial pressure. There is no evidence of pulmonary hypertension. Great Vessels All visible segments of the aorta are normal in size. The pulmonary artery was not well visualized. There is no dilatation of the ascending aorta measuring 3.30 cm. Venous The inferior vena cava is normal in size and collapses greater than 50% with inspiration. Pericardium/Pleural There is no evidence of pericardial effusion. Measurements 2D Linear Measurements IVSd: 0.79 0.6-0.9/0.6-1.0 cm LVIDd: 4.51 3.9-5.3/4.2-5.9 cm LVIDd Index: 2.73 2.4-3.2/2.2-3.1 cm/m2 LVIDs: 3.49 2.0-3.6 cm LVPWd: 0.95 0.7-1.1 cm LA Diam: 3.60 2.7-3.8/3.0-4.0 cm LAIDs Index: 2.18 1.5-2.3 cm/m2 LV Mass: 158.50 67-162/88-224 g LV Mass Index: 96.06 43-95/49-115 g/m2 LVOT Diam: 2.20 3.0+(-)1.3 cm 2D Systolic Function EF 4C: 60.80 >55% EF 2C: 68.60 >55% EF BiP: 65.60 >55% Mitral Valve MV Pk E: 0.72 MV PK A: 0.66 MV Decel Time: 174.00 E/A: 1.10 E'Lateral: 9.03 E'Medial: 8.27 E/E' Med: 8.70 E/E' Lat: 8.00 PHT: 51.00 MVA PHT: 4.31 Decel [place]: 4.13 Aortic Valve AoV Pk Bobby: 1.29 AoV Mn Bobby: 0.84 AoV VTI: 0.29 AoV Pk Grad: 7.00 Aov Mn Grad: 3.00 ROSENDA Cont.VTI: 3.18 LVOT LVOT Pk Bobby: 1.13 LVOT Mn Bobby: 0.72 LVOT VTI: 0.24 LVOT Pk Grad: 5.00 LVOT Mn Grad: 3.00 LVOT Diam: 2.20 LVOT Area: 3.80 Diastolic Function MV Pk E: 0.72 MV Pk A: 0.66 E/A: 1.10 E'Medial: 8.27 E/E' Med: 8.70 E' Laterial: 9.03 E/E' Lat: 8.00 Right Ventricle TAPSE (mm): 28.90 TVS' Bobby: 13.20 Tricuspid Valve TR Pk Bobby: 2.07 TR Pk Grad: 17.00 RA Press: 3.00 RVSP: 20.00 Great Vessels Aorta Sinus of Valsalva: 3.20 2.0-3.[address] [place]: 2.40 1.7-3.4 cm Ao Asc: 3.30 2.1-3.4 cm Updated in Other Vendor System with Status of Final Fran Lobo MD electronically signed on 09/21/2024 12:33:25 PM with status of Final
== END ==
LOC: HO.CARD 10:43
PROVIDERS: PCP Family Medicine; Visit Provider Internal Medicine
DX: Z01.810 Encounter for preprocedural cardiovascular examination (principal); I44.7 Left bundle-branch block, unspecified
CPT/HCPCS: 93306

== ENCOUNTER → 2024-09-20 10:46 | Outpatient (BNV) | payer MEDICARE, MEDICAID, SELFPAY | PROVIDERS: PCP Family Medicine; Visit Provider Internal Medicine Cardiovascular Disease | DX: Z01.810 Encounter for preprocedural cardiovascular examination (principal) | CPT/HCPCS: 93306 ==

== ENCOUNTER → 2024-09-21 08:54 | Outpatient (REF) | payer MEDICARE, MEDICAID, SELFPAY ==
--- NOTE | ~2024-09-21 | NM_ITS ---
Lexiscan Myocardial perfusion study Indication: Precordial chest pain Technique: The patient was brought in for a Lexiscan perfusion study on 09/21/2024 and was injected 0.4 mg of Lexiscan intravenously. Within a minute of this injection 25 mCi of sestamibi was given intravenously. Images were obtained using the SPECT gamma camera interlaced with the gating device. Images were obtained in supine position. Resting perfusion study was performed on 09/22/2024. Patient was administered 25 mCi of sestamibi intravenously at rest. Images were then obtained in supine position. Images obtained without without CT attenuation. Total DLP 129 mGy-cm. Images were processed with the software and compared side to side in short axis, horizontal long axis and vertical long axis views. Findings: The stress perfusion study showed nonattenuated images show mildly to moderately uptake in the apex of the LV myocardium. Remainder of the LV myocardium is normally perfused. Inferolateral wall is difficult to assess due to some diaphragmatic uptake attenuated corrected images show moderately reduced uptake in the apex, moderately reduced uptake in the septum. Remainder of the LV myocardium is normally perfused. The gated study shows normal LV systolic function with calculated LVEF of 58%. LV cavity is normal in size. The gated study shows normal systolic wall thickening and contraction of segments. Resting study shows no change in perfusion pattern compared to stress perfusion study. Gating at rest reveals normal systolic wall motion with ejection fraction at 65%. The findings are consistent with fixed apical defect which could represent nontransmural infarct although normal wall motion indicates attenuation artifact. No evidence of reversible ischemia. NM/NM cardiolite stress test Impression: 1. Myocardial perfusion imaging study shows no reversible ischemia, most likely normal perfusion 2. Gated LVEF is 58% 3. Transient ischemic dilatation not present Nondiagnostic changes on EKG. Electronically signed by: Fran Lobo MD 09/22/2024 03:43 PM [facility]
--- NOTE | 2024-09-21 08:58 | CA_ITS ---
Acquisition Time: 2024-09-21 09:05:07 Total Exercise Time: 00:02:00 Test Indications: 120.9 Medications: SEE H&P Protocol: LEXISCAN Max HR: 88 BPM 58% of Pred: 151 BPM Max BP: 106/54 mmHG Max Work Load: 1.0 METS Pharmacologic stress tets with Lexiscan while pt kicks her legs in the chair, with reports of dizziness, without any arrythmias, with normotensive response to injection. Nondiagnostic EKG for ischemia. In recovery, pt treated with IVP Aminophylline 75 mg to reverse Lexiscan, after which pt feeling back to baseline. Nuclear images pending. Test reviewed with Dr. Lobo. Referred By: Raymundo Bai Electronically Signed By: Adrián Amaro
== END ==
LOC: HO.CARD 08:54
PROVIDERS: PCP Family Medicine; Visit Provider Internal Medicine
DX: Z01.810 Encounter for preprocedural cardiovascular examination (principal); R07.2 Precordial pain; I44.7 Left bundle-branch block, unspecified; I20.9 Angina pectoris, unspecified
CPT/HCPCS: 78452; 93017; A9500; J0280; J2785

== ENCOUNTER → 2024-09-21 08:58 | Outpatient (BNV) | payer MEDICARE, MEDICAID, SELFPAY | PROVIDERS: PCP Family Medicine | DX: R42 Dizziness and giddiness (principal) | CPT/HCPCS: 78452; 93016; 93018 ==

== ENCOUNTER 2024-09-28 09:14 | Outpatient (REF) | payer MEDICARE, MEDICAID, SELFPAY ==
--- NOTE | ~2024-09-28 | XR_ITS ---
EXAMINATION: XR HIP, LEFT CLINICAL INFORMATION: M25.552 - Pain in left hip COMPARISON: 08/14/2024, 03/29/2024. TECHNIQUE: AP pelvis and 2 views of the left hip. FINDINGS: AP pelvis demonstrates total right hip arthroplasty without complication. There is anatomical alignment. Moderate to severe degenerative arthritis of the left hip joint present with superior joint space loss, [id number] appearance, mild subchondral cystic changes and sclerosis of the acetabulum and superior femoral head. There are small productive marginal and subcapital osteophytes. No soft tissue abnormalities. Spinal stimulator leads noted overlying the sacrum. XR/XR hip LT min 2V IMPRESSION: 1. Total right hip arthroplasty without complication. 2. Moderate to severe degenerative arthropathy left hip joint. Electronically signed by: Jerrell Snow MD 09/28/2024 11:37 AM EDT
== END 2024-09-28 09:15 | disposition home or self-care (01) ==
LOC: HO.HOSX 09:14
PROVIDERS: Visit Provider Physician Assistant
DX: Z01.818 Encounter for other preprocedural examination (principal); M16.12 Unilateral primary osteoarthritis, left hip; Z96.641 Presence of right artificial hip joint
CPT/HCPCS: 73502; 99212

== ENCOUNTER 2024-09-28 09:55 | Outpatient (AMB) | payer MEDICARE, MEDICAID, SELFPAY ==
--- NOTE | 2024-09-28 10:08 | MHC.OFFVIS ---
Intake Visit Reasons: Pre-Op: L EDUARDO w/NE 10/03/24 Intake Note: Ping is a 69 year old female who presents today for a pre-operative appointment. She is booked for a Left Total Hip Arthroplasty with Dr. Wall on 10/03/2024. She was provided with a Pain Management Agreement From to review and sign. Allergies aripiprazole [From ABILIFY] Allergy (Intermediate, Verified 09/28/24 10:08) SHAKING bupropion [From WELLBUTRIN] Allergy (Intermediate, Verified 09/28/24 10:08) SHAKING, WEAKNESS atypical antipsychotics Allergy (Intermediate, Uncoded 09/28/24 10:08) SHAKING/FEET SWELLING Medication List - Last Reconciled 09/28/24 by Vaibhav Andrew PA-C amlodipine 5 mg PO BID 90 days atorvastatin 20 mg PO BEDTIME 90 days citalopram 40 mg PO DAILY 90 days clonidine HCl 0.2 mg PO Q8H PRN MDD 3 cyclobenzaprine 10 mg PO TID PRN gabapentin 800 mg PO TID hydroxyzine HCl 25 mg PO BEDTIME 30 days omeprazole 40 mg PO DAILY@0630 [Raised toilet seat raised toilet seat WITH HANDLES; and round seat duration 99 days ] valsartan 320 mg PO DAILY 90 days walker Folding Front wheeled walker HPI Comments Details: Ms Becerril presents to the office today for preop visit. She is scheduled for left total hip arthroplasty with Dr. Wall. She continues to have ongoing pain and difficulty with ambulation in the left hip, which is affecting her quality of life; therefore, she has elected to move forward with surgery. [facility] Medical History History of MRSA infection Arthritis GERD (gastroesophageal reflux disease) COVID-19 HTN, goal below 130/80 Personal history of nicotine dependence High cholesterol Anxiety and depression Hypertension, essential Surgical History History of right hip replacement S/P insertion of spinal cord stimulator H/O colonoscopy History of tonsillectomy History of ankle surgery History of removal of cyst Family History Father No problems noted. Mother No problems noted. Son Hypertension Sister Ovarian cancer Breast cancer Social History Household Members: Friend(s) Household Members Other:: roomate Housing: House Are you a primary personal care service provider to a significant other at home: No Do you presently have visiting nurse or other home services: No Alcohol intake: former Patient Tobacco Use Status: Former Tobacco user Years Smoked: (onset 11yo, smoked for 30yrs at 1ppd, 30pyh - quit 2020 using vape e-Cigarette/Vaping Use: Currently Using service: No Current occupational status: retired Current occupational exposures/hazards: No Cognitive needs: No Hearing needs: No Vision needs: No Female Reproductive History Menstrual Age of Menarche: 11 Review of Systems Const All systems reviewed & are unremarkable except as noted in HPI and below Physical Exam Const General: cooperative, healthy appearing, comfortable, no acute distress, well developed and alert Orientation/consciousness: patient oriented x3 HEENT Head: Yes normal to inspection, Yes normocephalic and Yes atraumatic Eyes General: appearance normal, both eyes and all related structures Neck Neck: Yes normal visual inspection and Yes no lymphadenopathy Resp Effort & Inspection: normal respiratory effort and able to speak in complete sentences Cardio Rate: regular rate Peripheral pulses: Peripheral pulses 2+ throughout GI Inspection: Yes normal to inspection Palpation (GI): Soft to palpation Skin General skin exam: no rashes or lesions noted Neuro General: patient oriented x3 Extrem Other: Left hip skin intact, no open wounds or abraisons. Positive impingement test left hip. Minimal internal rotation and when she is flexion I internally rotated reproduces her primary complaint. Psych Appearance: grossly normal Mental Status: mental status grossly normal Results Reviewed Results Reviewed: Xrays were obtained in the office today and personally reviewed by me left hip for surgical planning. Assessment & Plan Assessment & Plan (1) Osteoarthritis of left hip: Code(s): M16.12 - Unilateral primary osteoarthritis, left hip Category: Medical Plan: I discussed in detail the procedure and what to expect pre and post operatively. We discussed the risks, benefits and alternatives to the surgery as well as the rehabilitation course. The risks; which include, but are not limited to infection, bleeding, nerve injury, ongoing pain, swelling, and stiffness, perioperative risk of injury to bones and soft tissues, and blood clots. I?ve answered all questions and with their understanding they have consented to move forward with Left total hip arthroplasty with Dr. Wall RT EDUARDO : [place] Trident2 54 with two 6.5 mm acetabular screws [place] Accolade2 #5 132 with -2.5 36 ceramic FH Discharge meds with RT EDUARDO: celecoxib 200 mg Capsule acetaminophen 325 mg Tablet aspirin 325 mg Tablet oxycodone 5 mg Tablet Plan: Home with VNA ( she went to [facility] with RT EDUARDO ) -patient does not have room in house for a walker--she used a cane with RT EDUARDO -ASA for DVT ppx -PT order placed for CORE -Raised toilet seat ordered Orders: Orders Complete Blood Count Auto Diff Today Z96.641 - Presence of right artificial hip joint Basic Metabolic Panel Today Z96.641 - Presence of right artificial hip joint PT Evaluation and Treatment Today Z96.642 - Presence of left artificial hip joint XR hip LT min 2V Today M25.552 - Pain in left hip Type and Screen 25 Days Z01.818 - Encounter for other preprocedural examination Medications: Changed From [Raised toilet seat] raised toilet seat WITH HANDLES; and round seat 1 ea 0RF M16.12 - Unilateral primary osteoarthritis, left hip To [Raised toilet seat] raised toilet seat WITH HANDLES; and round seat duration 99 days 1 ea 0RF M16.12 - Unilateral primary osteoarthritis, left hip Coding Level of Care Code Est Pt Level 3 (51990) Complex EM visit Add On G2211 Diagnoses Osteoarthritis of left hip M16.12
== END 2024-09-28 10:26 | disposition home or self-care (01) ==
LOC: HO.HOS 09:56
PROVIDERS: PCP Family Medicine; Visit Provider Physician Assistant
DX: M16.12 Unilateral primary osteoarthritis, left hip (principal)
CPT/HCPCS: 99024

== ENCOUNTER → 2024-09-28 10:00 | Outpatient (BNV) | payer MEDICARE, MEDICAID, SELFPAY | PROVIDERS: Visit Provider Radiology Diagnostic Radiology | DX: M16.12 Unilateral primary osteoarthritis, left hip (principal) | CPT/HCPCS: 73502 ==

== ENCOUNTER 2024-10-03 06:40 | Day surgery (SDC) | payer MEDICARE, MEDICAID, SELFPAY ==
[2024-09-07 12:35] VITALS: BP 108/65; PULSE 84; RESP 16; O2SAT 95; BMI 24.8
--- NOTE | 2024-09-07 12:54 | ECG_ITS ---
Test Reason : PREOP Blood Pressure : */* mmHG Vent. Rate : 72 BPM Atrial Rate : 72 BPM P-R Int : 230 ms QRS Dur : 166 ms QT Int : 466 ms P-R-T Axes : 60 -43 84 degrees QTcB Int : 510 ms Sinus rhythm with 1st degree A-V block Left axis deviation Left bundle branch block Abnormal ECG When compared with ECG of 21-Sep-2022 19:43, IL interval has increased Left bundle branch block is now Present Referred By: Janette Fleming Electronically Signed By: CARLOS ALBERTO RIDDLE
[2024-09-07 14:24] LABS: MRSA Nasal PCR NEGATIVE (Negative); SA Nasal PCR POSITIVE (Negative)
[2024-09-28 11:58] LABS: Basophils Absolute Auto 0.1 X10*3/uL (0.0-0.2); Basophils Percent Auto 1.1 % (0-2); Eosinophils Absolute Auto 0.1 X10*3/uL (0.0-0.4); Eosinophils Percent Auto 1.1 % (0-4); Hematocrit 35.9 % (37.0-47.0); Hemoglobin 11.2 g/dl (12.0-16.0); Imm Gran Abs Auto 0.03 X10*3/uL (0.00-0.03); Imm Gran Pct Auto 0.7 % (0.0-0.4); Lymphocytes Absolute Auto 1.1 X10*3/uL (1.2-4.9); Lymphocytes Percent Auto 24.5 % (20-40); MANUAL DIFF FLAG NO; Mean Corpuscular HGB Conc 31.2 g/dl (31.0-35.0); Mean Corpuscular Hemoglobin 26.7 pg (27.0-33.0); Mean Corpuscular Volume 85.7 fL (80.0-98.0); Mean Platelet Volume 10.7 fL (9.4-12.3); Monocytes Absolute Auto 0.4 X10*3/uL (0.1-1.2); Monocytes Percent Auto 9.2 % (2-11); Neutrophils Absolute Auto 2.8 x10*3/uL (2.0-8.3); Neutrophils Percent Auto 63.4 % (45-73); Platelet Count 264 X10*3/uL (160-400); Red Blood Count 4.19 X10*6/uL (4.20-5.50); Red Cell Distribution Width 14.2 % (11.0-16.0); White Blood Count 4.4 X10*3/uL (4.8-10.8)
[2024-09-28 12:37] LABS: Anion Gap 11 (12-20); Blood Urea Nitrogen 12 mg/dL (9-16); Calcium 8.6 mg/dL (8.4-10.2); Carbon Dioxide 31 mmol/L (22-29); Chloride 102 mmol/L (96-108); Creatinine Clr Calc Pharmacy 63.5; Estimated Glomerular Filt Rate > 60; Glucose Random 80 mg/dL (60-115); Potassium 4.9 mmol/L (3.3-5.1); Sodium 139 mmol/L (135-145)
[2024-10-03] VITALS (18 sets, daily range): BP systolic 111–172; BP diastolic 54–97; PULSE 63–83; RESP 14–20; TEMP 36.2–37.1; O2SAT 94–99
--- NOTE | ~2024-10-03 | XR_ITS ---
EXAMINATION: XR PELVIS CLINICAL INFORMATION: s/p LTHA COMPARISON: September 28, 2024. TECHNIQUE: AP view of the pelvis. FINDINGS: There is a metallic prosthesis with an acetabular and femoral component well-seated in the osseous structures without gross malalignment. Skin albina along the left hip. Subcutaneous emphysema related to the surgical procedure. The right hip prosthesis remains unchanged. There is a metallic reservoir for an intraspinal canal stimulator overlapping the right iliac bone and electrode seen to the lumbar spine no fully included. XR/XR pelvis 1-2V IMPRESSION: Total left hip arthroplasty, satisfactory. Electronically signed by: Reuben Boyce MD 10/03/2024 02:37 PM EDT
[2024-10-03] MEDS: Lactated Ringers 1,000 ML 80 ML IVCONT ×2 (07:23→13:41)
--- NOTE | 2024-10-03 07:28 | MHC.SHP ---
Pre-Procedural Eval Section A - 24 Hr Update-Section A only Date of Service: 10/03/24 The patient is an INPATIENT: No Changes since office visit: No Cold of Flu in the past 2 weeks, No New Medical Problems, No Changes in Medication and No Patient answered all questions The patient has been examined within 24 hours of the surgical procedure. The History & Physical has been completed within 30 days and I have reviewed it.: Yes Section B - Complete if H&P > 30 days Chief Complaint: Unilateral primary osteoarthritis, left hip Allergies: Allergies Allergy/AdvReac Type Severity Reaction Status Date / Time aripiprazole [From ABILIFY] Allergy Intermediate SHAKING Verified 10/03/24 06:44 bupropion [From WELLBUTRIN] Allergy Intermediate SHAKING, Verified 10/03/24 06:44 WEAKNESS atypical antipsychotics Allergy Intermediate SHAKING/FEET Uncoded 10/03/24 06:44 SWELLING Plan I have reviewed the history and physical and performed a pertinent physical examination on my patient. No changes have occurred unless specified. Time Spent With Patient Time: Total time managing care of this patient today ____ minutes.
[2024-10-03] MEDS: ceFAZolin Sodium/Dextrose,Iso 2 GM/50 ML PIGGYBACK IV ×2 (07:45→15:22)
--- NOTE | 2024-10-03 08:22 | P.CONAN_ITS ---
HPI - Anesthesia Eval Consult details Narrative: hip replacement PMFSH Active Problems Active Problems: All Active Problems Preoperative cardiovascular examination (Acute) Left bundle branch block (LBBB) on electrocardiogram (Acute) Mild anemia (Acute) Family history of breast cancer (Acute) Well woman exam (Acute) Family history of ovarian cancer (Acute) Swelling of lower extremity (Acute) Status post total replacement of right hip (Acute) Pre-op exam (Acute) Screening for osteoporosis (Acute) Screening for colon cancer (Acute) Breast cancer screening by mammogram (Acute) Adult general medical examination (Acute) Hyperlipidemia (Acute) Difficulty sleeping (Acute) Acute adjustment disorder (Acute) Trochanteric bursitis, right hip (Acute) Right hip pain (Acute) Osteoarthritis of right hip (Acute) Osteoarthritis of left hip (Acute) Left hip pain (Acute) Sciatica (Acute) HTN, goal below 140/90 (Acute) Cellulitis of hand, right (Acute) Bee sting reaction (Acute) Left thyroid nodule (Acute) Advance directive discussed with patient (Acute) Chronic pelvic pain in female (Acute) Coccydynia (Acute) Vapes nicotine containing substance (Acute) Essential tremor (Acute) Lumbago of lumbar region with sciatica (Acute) Primary generalized (osteo)arthritis (Acute) Chronic GERD (Acute) Coccyx pain (Acute) Personal history of nicotine dependence (Acute) High cholesterol (Acute) Anxiety and depression (Acute) Hypertension, essential (Acute) Past Medical History Medical History History of MRSA infection Arthritis GERD (gastroesophageal reflux disease) COVID-19 HTN, goal below 130/80 Personal history of nicotine dependence High cholesterol Anxiety and depression Hypertension, essential Family History Family History Father No problems noted. Mother No problems noted. Son Hypertension Sister Ovarian cancer Breast cancer Family history of problems with anesthesia: No Surgical History Surgical History History of right hip replacement S/P insertion of spinal cord stimulator H/O colonoscopy History of tonsillectomy History of ankle surgery History of removal of cyst History of Problems with Anesthesia: No Social History Social History Household Members: Friend(s) Household Members Other:: roomate Housing: House Are you a primary workforce investment act career manager to a significant other at home: No Do you presently have visiting nurse or other home services: No Alcohol intake: former Patient Tobacco Use Status: Former Tobacco user Years Smoked: (onset 11yo, smoked for 30yrs at 1ppd, 30pyh - quit 2020 using vape e-Cigarette/Vaping Use: Currently Using Use of substances other than those prescribed or required for medical reasons: No Have you been hit, kicked, punched, or otherwise hurt by someone within the past year? If so, by whom?: No Are you DNR?: No Advance Directives: No Advance Directives Information Provided: Yes Advance Directives on File: No Recently lost weight without trying: No Eating poorly because of decreased appetite: No Nutrition Risks: No Nutritional Risk Patient : No : No Poor oral hygiene: Yes (full denture upper and partial lower) service: No Current occupational status: retired Current occupational exposures/hazards: No Cognitive needs: No Hearing needs: No Vision needs: No Meds Allergies Allergy/AdvReac Type Severity Reaction Status Date / Time aripiprazole [From ABILIFY] Allergy Intermediate SHAKING Verified 10/03/24 06:44 bupropion [From WELLBUTRIN] Allergy Intermediate SHAKING, Verified 10/03/24 06:44 WEAKNESS atypical antipsychotics Allergy Intermediate SHAKING/FEET Uncoded 10/03/24 06:44 SWELLING Active Medications: Current Medications Lactated Ringer's (Lr) 1,000 mls @ 80 mls/hr IVCONT .[id number] LUIS Last Admin: 10/03/24 07:23 Dose: 80 mls/hr Home Medications ?Medication ?Instructions ?Recorded ?Confirmed ?Last Taken ?Type clonidine HCl 0.1 mg tablet 0.2 mg PO Q8H PRN Anxiety 03/23/24 09/28/24 03/27/24 History omeprazole 40 mg capsule,delayed 40 mg PO DAILY@0630 09/19/24 09/28/24 Unknown History release Exam Height,Weight and Vital Signs: Height 5 ft 3 in Weight 63.503 kg Last Vital Signs Temp 97.4 F 10/03/24 06:57 Pulse 63 10/03/24 06:57 Resp 14 10/03/24 06:57 BP 115/62 10/03/24 06:57 Pulse Ox 95 10/03/24 06:57 O2 Del Method Room Air 10/03/24 06:57 Pertinent Lab Results Pertinent Lab Results: Laboratory Tests 09/07/24 09/28/24 09/28/24 12:45 10:43 10:55 WBC 4.4 L RBC 4.19 L Hgb 11.2 L Hct 35.9 L MCV 85.7 MCH 26.7 L MCHC 31.2 RDW 14.2 Plt Count 264 MPV 10.7 Immature Gran % (Auto) 0.7 H Neut % (Auto) 63.4 Lymph % (Auto) 24.5 [place] % (Auto) 9.2 Eos % (Auto) 1.1 Baso % (Auto) 1.1 Lymph # (Auto) 1.1 L [place] # (Auto) 0.4 Eos # (Auto) 0.1 Baso # (Auto) 0.1 Abs Immat Gran (auto) 0.03 Absolute Neuts (auto) 2.8 Absolute Nucleated RBC 0.000 Nucleated RBC % (auto) 0.0 Sodium Potassium Chloride Carbon Dioxide Anion Gap BUN Creatinine Estim Creat Clear Calc Estimated GFR Random Glucose Calcium Nasal Screen MRSA (PCR) NEGATIVE Nasal S. aureus Screen POSITIVE A Nasal MRSA/S.aureus Interp SEE NOTE Blood Type A Negative Antibody Screen NEGATIVE 09/28/24 Unknown WBC RBC Hgb Hct MCV MCH MCHC RDW Plt Count MPV Immature Gran % (Auto) Neut % (Auto) Lymph % (Auto) [place] % (Auto) Eos % (Auto) Baso % (Auto) Lymph # (Auto) [place] # (Auto) Eos # (Auto) Baso # (Auto) Abs Immat Gran (auto) Absolute Neuts (auto) Absolute Nucleated RBC Nucleated RBC % (auto) Sodium 139 Potassium 4.9 Chloride 102 Carbon Dioxide 31 H Anion Gap 11 L BUN 12 Creatinine 0.75 Estim Creat Clear Calc 63.5 Estimated GFR > 60 Random Glucose 80 Calcium 8.6 Nasal Screen MRSA (PCR) Nasal S. aureus Screen Nasal MRSA/S.aureus Interp Blood Type Antibody Screen Airway Mallampati Class: II TM Dist: >3cm Neck ROM: Full Denture: Upper and Lower Heart: rrr Lungs: cta Assessment and Plan Assessment Anesthesia Assessment: Anesthesia Plan Discussed Final Anesthetic Review Family History of Problems with Anesthesia: No History of Problems with Anesthesia: No NPO: Yes ASA Class: III Final Preanesthetic Review: No Changes in Pt Med Stat, Meds/Allgs Chart Reviewed, Consent Obtained/Reviewed and Anes Risks/Benef Reviewed Patient Risk: Intermediate Procedure Risk: Intermediate Anesthetic Plan Anesthetic Plan: GA Disposition: Standard PACU
--- NOTE | 2024-10-03 09:15 | PM.OP ---
Brief Operative Note Date of Service: 10/03/24 Pre-op diagnosis: Left hip OA Post-op diagnosis: same Procedure: Left EDUARDO Implants: [place] Trident2 52/ 6.5 mm acetabular screws x 2/ 20 deg post lip liner [place] Acollade2 #5 132/ -5/36 ceramic Surgeon: Óscar Wall MD Anesthesia: GETA and local Was an Body Work Auto Trimmer used for this Procedure?: Yes Body Work Auto Trimmer: Aicha Mariee Estimated blood loss (mL): 150 IV fluids (mL): 850 Pathology: other Condition: stable Disposition: PACU
--- NOTE | 2024-10-03 09:16 | P.OP_ITS ---
Operative Note Operative Note Date of Service: 10/03/24 Narrative: Date of Service: 10/03/24 Pre-op diagnosis: Left hip OA Post-op diagnosis: same Procedure: Left EDUARDO Implants: [place] Trident2 52/ 6.5 mm acetabular screws x 2/ 20 deg post lip liner [place] Acolade2 #5 132/ -5/36 ceramic Surgeon: Óscar Wall MD Anesthesia: GETA and local Was an Email Deployment Specialist used for this Procedure?: Yes Email Deployment Specialist: Aicha Mariee Estimated blood loss (mL): 150 IV fluids (mL): 850 Pathology: other Condition: stable Disposition: PACU Procedure in detail: Patient was brought into the operating room and placed in the right lateral decubitus position. All bony prominences were well padded and the limb was prepped and draped in standard sterile fashion. A time-out was called to identify proper site procedure proper surgeon IV antibiotics and 1 g of tranexamic acid were administered. I began by making a curvilinear incision over the posterolateral aspect of the greater trochanter. Dissection was taken down to the tensor fascia which was incised in line with the incision and a Charnley retractor was placed. Cautery was used to maintain hemostasis. The hip was internally rotated and the external rotators were identified. The vessels were cauterized and a full-thickness capsular/external rotator layer was developed starting just proximal to the piriformis. This layer was tagged and a dull Hohmann retractor was placed underneath the neck in the hip was dislocated. A neck cut was made 1 cm proximal to the lesser trochanter and the head and neck were removed and measured ~48mm on the back table. The head was deformed and eburnated. I then removed the labrum and cauterized the fovea. I started with a 44 reamer and medialized to the inner table. I sequentially reamed up to a size 52 and impacted a 52mm cup at 45 degrees of inclination and 25 degrees of version. I then placed 2 acetabular screws into the superior safe zone using standard AO technique. I then placed a 20 deg posterior lipped liner and turned my attention to the femur. I identified the piriformis insertion and used this as a starting point for my aditi cutter. The medius tendon was protected with a Hibs retractor. A Charnley awl was inserted in the canal and a curved curette used to remove the lateral bone. I irrigated copiously. I then sequentially broached in the patient's natural version to a size 5 and placed my trial implants. I used a #5/132/-2.5 based on my pre-operative template and matching the contralateral hip. THis was stable but slightly stiff in extension. I then trialed with a -5 and it was similarly stable but felt better in extension. I removed all instrumentation and copiously irrigated. I placed my final femoral implant and again took the hip through range of motion and was satisfied with the stability and length using a -5. The final -5 implant was impacted in place and the hip reduced. I then irrigated copiously and placed 1 g of local tranexamic acid. I performed a capsular closure with 2.0 fiberwire, Michelle's fascia with 0 Vicryl, subcuticular with 2-0 Vicryl and the skin with albina. Patient was placed into a sterile dressing. Patient was extubated brought to the recovery room in stable condition. There were no known complications.
--- NOTE | 2024-10-03 09:39 | P.DS_ITS ---
DS: Providers Provider Date of Service: 10/04/24 Date of discharge: 10/04/24 Primary care physician: Angel Centeno MD DS: Summary Hospital Course Hospital Course: The patient underwent a successful left total hip arthroplasty, they were transferred to PACU and then to the floor to recover. During their stay, their vitals were stable, afebrile at 97.0. Labs were unremarkable, H/H 9.3/29.4. POD 1 they were started on Aspirin 325mg po bid for DVT ppx, they also received Physical Therapy services twice a day. Prior to discharge, their dressing was clean dry and intact, and the plan was to be discharged home with VNA services. Time Attestation Discharge Coordination Time (in mins): 30 Quality: Safe Use of Opioids Does Pt have an Active Cancer Diagnosis on the Problem List?: No Quality: Stroke Does the patient have a stroke diagnosis?: No Physical Exam Vital Signs: Vital Signs: Last Vital Signs Temp 97.1 F 10/03/24 09:30 Pulse 72 10/03/24 09:30 Resp 16 10/03/24 09:30 BP 127/78 10/03/24 09:30 Pulse Ox 98 10/03/24 09:30 O2 Del Method Simple Mask 10/03/24 09:30 O2 Flow Rate 6 10/03/24 09:30 BMI result Body Mass Index 24.8 Const: General: cooperative, healthy appearing and no acute distress Resp: Effort & Inspection: normal respiratory effort and able to speak in complete sentences Cardio: Rate: regular rate Peripheral pulses: Peripheral pulses 2+ throughout GI: Palpation (GI): Soft to palpation Skin: Lesions: no lesions Rashes: no rashes Extrem: Other: left hip dressing is c/d/i. Able to dorsi/plantar flex. Calf is supple and nontender. Sensation intact. Pedal pulse intact. DS: Data Data Completed and Pending Completed studies during hospitalization [Text1]: Procedures Replacement of Right Hip Joint with Ceramic Synthetic Substitute, Uncemented, Open Approach (03/28/24) Pending studies at discharge: Pending at discharge 10/03/24 08:28 Surgical [PTH] Routine Discharge Plan Discharge Patient Disposition: Home Health Service Referrals: Vaibhav Andrew PA-C [Physician Continuous Improvement Facilitator] - 10/20/24 1:15 pm Discharge Medications: New celecoxib 200 mg Capsule 200 mg PO BID 30 Days Qty: 60 0RF acetaminophen 325 mg Tablet 650 mg PO Q6H PRN (Reason: Pain, Mild 1-3,Fever,Headache) 30 Days Qty: 240 0RF aspirin 325 mg Tablet 325 mg PO BID 42 Days Qty: 84 0RF docusate sodium 100 mg Capsule 100 mg PO BID 30 Days Qty: 60 0RF oxycodone 5 mg Tablet 5 mg PO Q4H PRN (Reason: Pain, Moderate(Pain Scale 4-6)) 7 Days Qty: 42 0RF Rx Instructions: Partial Fill upon patient request. Continued amlodipine 5 mg tablet 5 mg PO BID 90 Days Qty: 180 0RF hydroxyzine HCl 25 mg tablet 25 mg PO BEDTIME 30 Days Qty: 30 0RF valsartan 320 mg tablet 320 mg PO DAILY 90 Days Qty: 90 0RF gabapentin 800 mg tablet 800 mg PO TID Qty: 90 0RF (DME) walker Misc See Rx Instructions .MEDSUPPLY Qty: 1 0RF Rx Instructions: Folding Front wheeled walker clonidine HCl 0.1 mg tablet 0.1 mg PO Q8H MDD 3 PRN (Reason: Anxiety) citalopram 40 mg tablet 40 mg PO DAILY 90 Days Qty: 90 2RF cyclobenzaprine 10 mg tablet 10 mg PO TID PRN (Reason: for muscle spasm) Qty: 90 1RF omeprazole 40 mg capsule,delayed release(DR/EC) 40 mg PO DAILY@0630 atorvastatin 20 mg tablet 20 mg PO BEDTIME 90 Days Qty: 90 3RF (DME) Raised toilet seat See Rx Instructions .ROUTE .MEDSUPPLY Qty: 1 0RF Rx Instructions: raised toilet seat WITH HANDLES; and round seat duration 99 days Discharge Orders: Discharge Order (Routine); Ordered 10/04/24 Ordered By: Aicha Mariee Diet: Advance to usual diet Activity on Discharge: Use cane or walker Activity Restrictions/Additional Instructions: Physical Therapy for total hip arthroplasty: posterior precautions, gait training, ROM, strength Limit stair climbing No showering, no tub bath-keep dressing clean, dry and intact No driving x 6 weeks Continue ASA tabs once a day x 6 weeks Follow up with [facility] in 2 weeks Print Language: Swedish
[2024-10-03] MEDS: HYDROmorphone HCl 0.5 MG/0.5 ML SYRINGE 0.25 MG IVPUSH ×8 (09:40→10:15)
--- NOTE | 2024-10-03 09:40 | W.MHC.F2F ---
Service Date Service Date: 10/03/24 Encounter Date of encounter: 10/04/24 Reasons for Services Signs and symptoms assessed: s/p LTHA Pt. is considered homebound due to recent surgery. Unable to drive, poor balance, poor gait mechanics. Reason for physical therapy: home safety and mobility, therapeutic exercises, restore joint function, gait/transfer training and ADL training Reason for occupational therapy: home safety and mobility, therapeutic exercises, restore joint function, gait/transfer training and ADL training Homebound: Leaving the home is medically contraindicated at this time without the asist of a device and/or another person due th the listed conditions above and below. Reason homebound: unsteady gait / fall risk, leg weakness, pain with ambulation, pain with transfers, poor balance / fall risk and unable to drive Certification: Based on the above findings, I certify that this patient is confined to the home and needs intermittent nursing home care, physical therapy and/or speech therapy, or continues to need occupational therapy. The patient is under my care, and I have initiated the establishment of the plan of care. The patient will be followed by a physician who will periodically review the plan of care. Time Spent With Patient Time: Total time managing care of this patient today ____ minutes.
[2024-10-03] MEDS: LORazepam 2 MG/ML VIAL 1 MG IVPUSH (10:15)
--- NOTE | 2024-10-03 12:58 | PHA.MEDREC ---
Pharmacy Consult ? Medication Reconciliation Pharmacy has reviewed the medication reconciliation done by nursing and also spoke to patient to confirm med list. Per patient, she only takes clonidine 0.1 mg q8h prn. Last dose of medications was yesterday 10/02/24 except she took a dose of valsartan 320 mg this morning 10/03/24 before procedure.
--- NOTE | 2024-10-03 13:37 | HO.PM.IMCN ---
History of Present Illness Data of Consult Service Date: 10/03/24 Requesting physician: Aicha Mariee Primary Care Provider: Angel Centeno MD HPI Reason for consult: routine medical management 69yo F with HTN, LBBB, HLD, OA, GERD, and anxiety admitted for elective L EDUARDO; history of R EDUARDO without complications. Uncomplicated operation. No personal or family history of VTE. Denies fever, chills, chest pain, dyspnea, abdominal pain, nausea, or vomiting. Review of Systems Review of Systems: Yes all other systems are reviewed and are negative PMFSH Medical History History of MRSA infection Arthritis GERD (gastroesophageal reflux disease) COVID-19 HTN, goal below 130/80 Personal history of nicotine dependence High cholesterol Anxiety and depression Hypertension, essential Family History Father No problems noted. Mother No problems noted. Son Hypertension Sister Ovarian cancer Breast cancer Surgical History History of right hip replacement S/P insertion of spinal cord stimulator H/O colonoscopy History of tonsillectomy History of ankle surgery History of removal of cyst Social History Household Members: Other Household Members Other:: 2 roommates Housing: Apartment Are you a primary career developer to a significant other at home: No Do you presently have visiting nurse or other home services: No Alcohol intake: former Patient Tobacco Use Status: Former Tobacco user Years Smoked: (onset 11yo, smoked for 30yrs at 1ppd, 30pyh - quit 2020 using vape e-Cigarette/Vaping Use: Currently Using Use of substances other than those prescribed or required for medical reasons: No Have you been hit, kicked, punched, or otherwise hurt by someone within the past year? If so, by whom?: No Do you feel safe in your current relationship?: Yes Is there a partner from a previous relationship who is making you feel unsafe now?: No Are you made to feel afraid or neglected: No Are you DNR?: No Advance Directives: No Advance Directives Information Provided: Yes Advance Directives on File: No Do you have a plan to hurt others: No Plan Recently lost weight without trying: No Eating poorly because of decreased appetite: No Nutrition Risks: No Nutritional Risk Patient : No : No Poor oral hygiene: Yes (full denture upper and partial lower) service: No Current occupational status: retired Current occupational exposures/hazards: No Cognitive needs: No Hearing needs: No Vision needs: No Meds Allergies Allergy/AdvReac Type Severity Reaction Status Date / Time aripiprazole [From ABILIFY] Allergy Intermediate SHAKING Verified 10/03/24 06:44 bupropion [From WELLBUTRIN] Allergy Intermediate SHAKING, Verified 10/03/24 06:44 WEAKNESS atypical antipsychotics Allergy Intermediate SHAKING/FEET Uncoded 10/03/24 06:44 SWELLING Active Medications: Current Medications Acetaminophen (Acetaminophen 325 Mg Tablet) 650 mg PO Q6H PRN PRN Reason: Pain, Mild 1-3,fever,headache Amlodipine Besylate (Amlodipine Besylate 5 Mg Tablet) 5 mg PO BID [facility]; Protocol Aspirin (Aspirin 325 Mg Tablet) 325 mg PO BID [facility] Atorvastatin Calcium (Atorvastatin Calcium 20 Mg Tablet) 20 mg PO BEDTIME [facility] Celecoxib (Celecoxib 200 Mg Capsule) 200 mg PO BID [facility] Clonidine HCl (Clonidine Hcl 0.2 Mg Tablet) 0.1 mg PO Q8H PRN; Protocol PRN Reason: Anxiety Cyclobenzaprine HCl (Cyclobenzaprine Hcl 10 Mg Tablet) 10 mg PO TID PRN PRN Reason: for muscle spasm Docusate Sodium (Docusate Sodium 100 Mg Capsule) 100 mg PO BID [facility] Escitalopram Oxalate (Escitalopram Oxalate 20 Mg Tablet) 20 mg PO DAILY [facility] Gabapentin (Gabapentin 400 Mg Capsule) 800 mg PO TID [facility] Hydromorphone HCl (Hydromorphone Hcl 0.5 Mg/0.5 Ml Syringe) 0.25 mg IVPUSH Q4H PRN; Protocol PRN Reason: Pain, Severe (Pain Scale 7-10) Hydroxyzine HCl (Hydroxyzine Hcl 25 Mg Tablet) 25 mg PO BEDTIME [facility] Lactated Ringer's (Lr) 1,000 mls @ 80 mls/hr IVCONT .[id number] [facility] Last Admin: 10/03/24 07:23 Dose: 80 mls/hr Lactated Ringer's (Lr) 1,000 mls @ 100 mls/hr IVCONT .Q10H [facility] Cefazolin Sodium/Dextrose (Ancef) 2 gm in 50 mls @ 100 mls/hr IV POSTOP@1400 ONE Stop: 10/03/24 14:29 Magnesium Hydroxide (Milk Of Magnesia 30 Ml Oral.Susp) 30 ml PO DAILY PRN PRN Reason: Constipation Naloxone HCl (Naloxone Hcl 0.4 Mg/Ml Vial) 0.04 mg IVPUSH Q5M PRN PRN Reason: Excessive sedation or RR < 8 Naloxone HCl (Naloxone Hcl 0.4 Mg/Ml Vial) 0.04 mg IVPUSH Q5M PRN PRN Reason: Excessive sedation or RR < 8 Omeprazole (Omeprazole 40 Mg Capsule.Dr) 40 mg PO DAILY@0630 [facility] Ondansetron HCl (Ondansetron Hcl 4 Mg/2 Ml Vial) 4 mg IVPUSH ONCE PRN PRN Reason: Nausea and Vomiting Stop: 10/03/24 14:24 Ondansetron HCl (Ondansetron Hcl 4 Mg/2 Ml Vial) 4 mg IVPUSH Q8H PRN PRN Reason: Nausea and Vomiting Oxycodone HCl (Oxycodone Hcl Immed Release 5 Mg Tablet) 5 mg PO Q4H PRN PRN Reason: Pain, Moderate(Pain Scale 4-6) Oxycodone HCl (Oxycodone Hcl Er 10 Mg Tab.Er.12h) 10 mg PO BID [facility] Sodium Chloride (0.9 % Sodium Chloride Flush 3 Ml Syringe) 3 ml IVFLUSH QSHIFT [facility] Valsartan (Valsartan 320 Mg Tablet) 320 mg PO DAILY [facility]; Protocol Home Medications ?Medication ?Instructions ?Recorded ?Confirmed ?Last Taken ?Type clonidine HCl 0.1 mg tablet 0.1 mg PO Q8H PRN Anxiety 03/23/24 10/03/24 03/27/24 History omeprazole 40 mg capsule,delayed 40 mg PO DAILY@0630 09/19/24 10/03/24 10/02/24 History release Physical Exam Vital Signs and Narrative: Vital Signs: Last Vital Signs Temp 97.9 F 10/03/24 11:26 Pulse 75 10/03/24 11:26 Resp 20 10/03/24 11:26 BP 133/68 10/03/24 11:26 Pulse Ox 96 10/03/24 11:26 O2 Del Method Nasal Cannula 10/03/24 11:26 O2 Flow Rate 2 10/03/24 11:26 BMI result Body Mass Index 24.8 Gen: in no acute distress HEENT: sclera anicteric, moist mucus membranes Neck: supple Lungs: clear to auscultation bilaterally Heart: regular rate and rhythm, no murmurs Abd: soft, non-tender, non-distended Ext: no edema, L hip with dry dressing Skin: warm/well-perfused Neuro: alert and oriented x3, no focal findings Psych: appropriate affect Results Labs 09/28/24 10:43 09/28/24 Unknown Assessment and Plan (1) Hypertension, essential: Status: Acute Plan 69yo F with HTN, LBBB, HLD, OA, GERD, and anxiety admitted for elective L EDUARDO; medical consultation for management of comorbid conditions. HTN - continue valsartan + amlodipine HLD - continue atorvastatin anxiety - continue [es]citalopram and clonidine and hydroxyzine GERD - continue PPI chronic pain - continue gabapentin VTE ppx - ASA Thank you for this consultation. We are signing off the case at this time. Please communicate with us if any new medical questions arise.
[2024-10-03] MEDS: 0.9 % Sodium Chloride Flush 3 ML SYRINGE IVFLUSH (13:39)
[2024-10-03] MEDS: oxyCODONE HCl ER 10 MG TAB.ER.12H PO ×2 (13:40→20:05)
[2024-10-03] MEDS: Docusate Sodium 100 MG CAPSULE PO ×2 (13:40→20:05)
[2024-10-03] MEDS: amLODIPine Besylate 5 MG TABLET PO ×2 (13:40→20:05)
[2024-10-03] MEDS: Escitalopram Oxalate 20 MG TABLET PO (13:42)
[2024-10-03] MEDS: Celecoxib 200 MG CAPSULE PO ×2 (13:42→20:05)
[2024-10-03] MEDS: Lactated Ringers 1,000 ML 100 ML IVCONT ×2 (13:51→23:43)
[2024-10-03] MEDS: oxyCODONE HCl Immed Release 5 MG TABLET PO (15:15)
[2024-10-03] MEDS: Gabapentin 400 MG CAPSULE 800 MG PO ×2 (15:20→20:05)
[2024-10-03] MEDS: hydrOXYzine HCL 25 MG TABLET PO (20:05)
[2024-10-03] MEDS: Atorvastatin Calcium 20 MG TABLET PO (20:05)
[2024-10-04] MEDS: HYDROmorphone HCl 0.5 MG/0.5 ML SYRINGE 0.25 MG IVPUSH (03:16)
[2024-10-04 03:52] VITALS: BP 152/66; PULSE 72; RESP 17; TEMP 37.3; O2SAT 98
[2024-10-04] MEDS: Omeprazole 40 MG CAPSULE.DR PO (06:17)
[2024-10-04 06:26] LABS: MANUAL DIFF FLAG NO
[2024-10-04 06:29] LABS: Basophils Percent Auto 0.1 % (0-2); Hematocrit 29.4 % (37.0-47.0); Hemoglobin 9.3 g/dl (12.0-16.0); Imm Gran Abs Auto 0.03 X10*3/uL (0.00-0.03); Imm Gran Pct Auto 0.4 % (0.0-0.4); Lymphocytes Absolute Auto 0.8 X10*3/uL (1.2-4.9); Lymphocytes Percent Auto 11.9 % (20-40); Mean Corpuscular HGB Conc 31.6 g/dl (31.0-35.0); Mean Corpuscular Hemoglobin 26.8 pg (27.0-33.0); Mean Corpuscular Volume 84.7 fL (80.0-98.0); Mean Platelet Volume 10.7 fL (9.4-12.3); Monocytes Percent Auto 14.9 % (2-11); Neutrophils Percent Auto 72.7 % (45-73); Platelet Count 160 X10*3/uL (160-400); Red Blood Count 3.47 X10*6/uL (4.20-5.50); White Blood Count 6.9 X10*3/uL (4.8-10.8)
[2024-10-04 06:41] LABS: Anion Gap 8 (12-20); Blood Urea Nitrogen 10 mg/dL (9-16); Calcium 7.9 mg/dL (8.4-10.2); Carbon Dioxide 31 mmol/L (22-29); Chloride 104 mmol/L (96-108); Creatinine Clr Calc Pharmacy 72.2; Estimated Glomerular Filt Rate > 60; Glucose Fasting 124 mg/dL (60-99); Potassium 4.2 mmol/L (3.3-5.1); Sodium 139 mmol/L (135-145)
[2024-10-04 06:49] VITALS: BP 107/58; PULSE 71; RESP 17; TEMP 36.1; O2SAT 95
[2024-10-04] MEDS: oxyCODONE HCl ER 10 MG TAB.ER.12H PO (07:24)
[2024-10-04] MEDS: amLODIPine Besylate 5 MG TABLET PO (07:24)
[2024-10-04] MEDS: Gabapentin 400 MG CAPSULE 800 MG PO (07:24)
[2024-10-04] MEDS: oxyCODONE HCl Immed Release 5 MG TABLET PO (07:25)
[2024-10-04] MEDS: Valsartan 320 MG TABLET PO (07:25)
[2024-10-04] MEDS: Escitalopram Oxalate 20 MG TABLET PO (07:25)
[2024-10-04] MEDS: Celecoxib 200 MG CAPSULE PO (07:25)
[2024-10-04] MEDS: Docusate Sodium 100 MG CAPSULE PO (07:25)
[2024-10-04] MEDS: Lactated Ringers 1,000 ML 100 ML IVCONT (09:11)
[2024-10-04] MEDS: Aspirin 325 MG TABLET PO (09:50)
--- NOTE | 2024-10-04 11:44 | HO.POSTANES ---
Post Anesthesia Evaluation Post Anesthesia Evaluation Date of Service: 10/04/24 Vital Signs: Vital Signs Temp Pulse Resp BP Pulse Ox O2 Del Method O2 Flow Rate 10/04/24 06:49 97 F 71 17 107/58 L 95 Room Air 10/04/24 03:52 99.1 F 72 17 152/66 H 98 Nasal Cannula 2 Anesthesia: General Endotracheal-GETA Mental Status: Awake Pain Control: Satisfactory Nausea/Vomiting: None Hydration: Adequate Anesthesia-Related Issues: No Anes. Related Issues
[2024-10-04 11:57] VITALS: BP 114/56; PULSE 67; RESP 16; TEMP 36.9; O2SAT 94
--- NOTE | 2024-10-04 12:04 | MHC.CM.PN ---
IMM DELIVERED. LIVES WITH ROOMMATES. PT USES CANE NEEDED FOR KNEE PAIN. NO SERVICES. +HCP ON FILE AND VERIFIED.PCP DR. DUNCAN. DP: PT HAS BEEN MEDICALLY CLEARED FOR DC HOME WITH NEW [facility] FOR P.T./O.T. [facility] NOTIFIED OF TODAY'S DC. PT'S SON WILL TRANSPORT HOME AT 3 PM.
== END 2024-10-04 13:55 | disposition home health service (06) ==
LOC: HO.SSS 09:45 → HO.S3 10:16
PROVIDERS: Physician Assistant; PCP Family Medicine; Visit Provider Orthopaedic Surgery
PROC: (CPT 27130; principal; 2024-10-03 07:30)
DX: M16.12 Unilateral primary osteoarthritis, left hip (principal); M25.562 Pain in left knee; R26.2 Difficulty in walking, not elsewhere classified; I10 Essential (primary) hypertension; E78.00 Pure hypercholesterolemia, unspecified; K21.9 Gastro-esophageal reflux disease without esophagitis; F41.8 Other specified anxiety disorders; Z79.899 Other long term (current) drug therapy; Z88.8 Allergy status to other drugs, medicaments and biological substances; Z96.82 Presence of neurostimulator; Z96.641 Presence of right artificial hip joint; Z86.14 Personal history of Methicillin resistant Staphylococcus aureus infection; Z98.890 Other specified postprocedural states; Z87.891 Personal history of nicotine dependence
CPT/HCPCS: 27130; 36415; 72170; 80048; 85025; 86850; 86900; 86901; 87640; 87641; 88304; 88311; 93005; 97161; 97165; C1713; C1776; J0131; J0690; J1100; J1171; J2003; J2060; J2405; J2704; J2795; J3010; J7120

== ENCOUNTER → 2024-10-03 06:40 | Outpatient (BNV) | payer MEDICARE, MEDICAID, SELFPAY | PROVIDERS: PCP Family Medicine; Visit Provider Orthopaedic Surgery | DX: Z47.1 Aftercare following joint replacement surgery (principal); Z96.642 Presence of left artificial hip joint | CPT/HCPCS: 27130; 99024; G0180 ==

== ENCOUNTER → 2024-10-03 06:40 | Outpatient (BNV) | payer MEDICARE, MEDICAID, SELFPAY | PROVIDERS: PCP Family Medicine; Visit Provider Family Medicine | DX: I10 Essential (primary) hypertension (principal) | CPT/HCPCS: 99222 ==

== ENCOUNTER → 2024-10-03 07:16 | Outpatient (BNV) | payer MEDICARE, MEDICAID, SELFPAY | PROVIDERS: PCP Family Medicine; Visit Provider Radiology Diagnostic Radiology | DX: Z96.642 Presence of left artificial hip joint (principal) | CPT/HCPCS: 72170 ==

== ENCOUNTER 2024-10-10 09:53 | Outpatient (AMB) | payer MEDICARE, SELFPAY ==
--- NOTE | 2024-10-10 09:58 | MHC.OFFVIS ---
Intake Visit Reasons: PO Bandage Change L EDUARDO w/NE 10/03/24 Intake Note: Ping is a 69 year old female who presents today fora bandage change s/p left total hip arthroplasty 10/03/24 NE. Allergies aripiprazole [From ABILIFY] Allergy (Intermediate, Verified 10/10/24 10:07) SHAKING bupropion [From WELLBUTRIN] Allergy (Intermediate, Verified 10/10/24 10:07) SHAKING, WEAKNESS atypical antipsychotics Allergy (Intermediate, Uncoded 10/03/24 06:44) SHAKING/FEET SWELLING HPI HPI PO Bandage Change L EDUARDO w/NE 10/03/24: Details: Ms. Becerril is a 69-year-old female who presents to the office today for a dressing change status post left total hip arthroplasty performed by Dr. Wall on 10/03/2024. [facility] Medical History History of MRSA infection Arthritis GERD (gastroesophageal reflux disease) COVID-19 HTN, goal below 130/80 Personal history of nicotine dependence High cholesterol Anxiety and depression Hypertension, essential Surgical History History of right hip replacement S/P insertion of spinal cord stimulator H/O colonoscopy History of tonsillectomy History of ankle surgery History of removal of cyst Family History Father No problems noted. Mother No problems noted. Son Hypertension Sister Ovarian cancer Breast cancer Social History Household Members: Other Household Members Other:: 2 roommates Housing: Apartment Are you a primary child care group leader to a significant other at home: No Do you presently have visiting nurse or other home services: No Alcohol intake: former Patient Tobacco Use Status: Former Tobacco user Years Smoked: (onset 11yo, smoked for 30yrs at 1ppd, 30pyh - quit 2020 using vape e-Cigarette/Vaping Use: Currently Using service: No Current occupational status: retired Current occupational exposures/hazards: No Cognitive needs: No Hearing needs: No Vision needs: No Female Reproductive History Menstrual Age of Menarche: 11 Review of Systems Const All systems reviewed & are unremarkable except as noted in HPI and below Physical Exam Const General: cooperative, healthy appearing and no acute distress Resp Effort & Inspection: normal respiratory effort and able to speak in complete sentences Cardio Rate: regular rate Peripheral pulses: Peripheral pulses 2+ throughout Skin Lesions: no lesions Rashes: no rashes Extrem Other: Left hip incision site is clean dry and intact. Vikash intact. No surrounding erythema or drainage. No signs of infection. Assessment & Plan Assessment & Plan (1) Status post total replacement of left hip: Code(s): Z96.642 - Presence of left artificial hip joint Category: Surgical Plan Ms. Becerril is a 69-year-old female who presents to the office today for a dressing change status post left total hip arthroplasty performed by Dr. Wall on 10/03/2024. The Aquacel dressing was saturated with bloody and serosanguineous fluid. When taken down there were no signs of infection and the incision site was cleaned with ChloraPrep. A new Aquacel dressing was applied over the area and the patient will follow up at her normally scheduled follow up appointment, sooner if needed. Coding Level of Care Code Global (25145) Diagnoses Status post total replacement of left hip Z96.642
== END 2024-10-10 10:07 | disposition home or self-care (01) ==
LOC: HO.HOS 09:53
PROVIDERS: PCP Family Medicine; Visit Provider Physician Assistant
DX: Z96.642 Presence of left artificial hip joint (principal)
CPT/HCPCS: 99024

== ENCOUNTER → 2024-10-10 09:53 | Outpatient (BNVA) | payer MEDICARE, SELFPAY | PROVIDERS: PCP Family Medicine; Visit Provider Physician Assistant | DX: Z47.1 Aftercare following joint replacement surgery (principal); Z96.642 Presence of left artificial hip joint | CPT/HCPCS: 99212 ==

== ENCOUNTER 2024-10-19 13:10 | Outpatient (AMB) | payer MEDICARE, MEDICAID, SELFPAY ==
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
== END 2024-10-19 13:41 | disposition home or self-care (01) ==
LOC: HO.HOS 13:11
PROVIDERS: PCP Family Medicine; Visit Provider Physician Assistant
DX: Z96.642 Presence of left artificial hip joint (principal)
CPT/HCPCS: 99024

== ENCOUNTER → 2024-10-19 13:10 | Outpatient (BNVA) | payer MEDICARE, SELFPAY | PROVIDERS: PCP Family Medicine; Visit Provider Physician Assistant | DX: Z47.1 Aftercare following joint replacement surgery (principal); Z96.642 Presence of left artificial hip joint | CPT/HCPCS: 99212 ==

== ENCOUNTER 2024-10-31 08:49 | Outpatient (AMB) | payer MEDICARE, MEDICAID, SELFPAY ==
--- NOTE | 2024-10-31 08:49 | A.OFFVIS_ITS ---
Intake Visit Reasons: Dexa results Allergies aripiprazole [From ABILIFY] Allergy (Intermediate, Verified 10/10/24 10:07) SHAKING bupropion [From WELLBUTRIN] Allergy (Intermediate, Verified 10/10/24 10:07) SHAKING, WEAKNESS atypical antipsychotics Allergy (Intermediate, Uncoded 10/03/24 06:44) SHAKING/FEET SWELLING HPI Comments Details: The patient schedule telehealth visit for follow up regarding DEXA scan results. DEXA scan showed the following: The bone mineral density of the lumbar spine is 1.166 with a T-score of -0.1, and a Z-score of 1.6. The bone mineral density of the left total hip is 0.883 with a T-score of -1.0, and a Z-score of 0.5. The bone mineral density of the left femoral neck is 0.875 with a T-score of -1.2, and a Z-score of 0.5. FRACTURE RISK: The FRAX index suggests a risk of major osteoporotic fracture of 14.7%, and of hip fracture 1.6%. [facility] Medical History History of MRSA infection Arthritis GERD (gastroesophageal reflux disease) COVID-19 HTN, goal below 130/80 Personal history of nicotine dependence High cholesterol Anxiety and depression Hypertension, essential Surgical History History of right hip replacement S/P insertion of spinal cord stimulator H/O colonoscopy History of tonsillectomy History of ankle surgery History of removal of cyst Family History Father No problems noted. Mother No problems noted. Son Hypertension Sister Ovarian cancer Breast cancer Social History Household Members: Other Household Members Other:: 2 roommates Housing: Apartment Are you a primary regular senior care provider to a significant other at home: No Do you presently have visiting nurse or other home services: No Alcohol intake: former Patient Tobacco Use Status: Former Tobacco user Years Smoked: (onset 11yo, smoked for 30yrs at 1ppd, 30pyh - quit 2020 using vape e-Cigarette/Vaping Use: Currently Using service: No Current occupational status: retired Current occupational exposures/hazards: No Cognitive needs: No Hearing needs: No Vision needs: No Female Reproductive History Menstrual Age of Menarche: 11 Review of Systems Const All systems reviewed & are unremarkable except as noted in HPI and below Reports as per HPI and Reports no additional complaints GI Reports no additional complaints Reports no additional complaints Telehealth Telehealth Telehealth Platform: [facility] Location of provider rendering services: practice address Location of patient: address on file Patient Identification confirmed using: Name, : Yes Telehealth method: video Patient verbally consented to treatment: Yes Patient verbally consented to billing insurance company: Yes Patient informed of any privacy concerns related to visit: Yes Minutes spent on Phone/Video with Pt.: 2 Assessment & Plan Assessment & Plan (1) Osteopenia: Code(s): M85.80 - Other specified disorders of bone density and structure, unspecified site Category: Medical Plan: Discussed with the patient the DEXA results and FRAX risk. FRAX risk and T score showed no evidence of osteoporosis. Discussed with the patient all the options for osteoporosis prevention including lifestyle modifications including Ca+D supplements 1200 mg po qd/800 MIU, Weight bearing exercises and proteine supplements. The patient verbalized understanding and agreed plan will repeat DEXA in 2 years. I spent a total of 20 minutes reviewing the chart, talking to the patient via video and documenting in the medical record. Coding Level of Care Code Tele Est Pt Level 3 (95467) Diagnoses Osteopenia M85.80
== END 2024-10-31 09:47 | disposition home or self-care (01) ==
LOC: HO.HWS 08:49
PROVIDERS: PCP Family Medicine; Visit Provider Obstetrics & Gynecology
DX: M85.80 Other specified disorders of bone density and structure, unspecified site (principal)
CPT/HCPCS: 99213

== ENCOUNTER → 2024-10-31 08:49 | Outpatient (BNVA) | payer MEDICARE, MEDICAID, SELFPAY | PROVIDERS: PCP Family Medicine; Visit Provider Obstetrics & Gynecology ==

== ENCOUNTER 2024-11-13 12:10 | Outpatient (REF) | payer MEDICARE, MEDICAID, SELFPAY ==
--- NOTE | ~2024-11-13 | XR_ITS ---
EXAMINATION: XR HIP 1 VIEW LEFT, XR PELVIS 1-2 VIEWS HISTORY: M25.552 - Pain in left hip COMPARISON: Comparison is made with the prior examination dated 10/03/2024. FINDINGS: A single AP view of the pelvis and an additional view of the left hip are submitted. A left hip prosthesis is unchanged in appearance. There is no radiographic evidence of loosening. There is no fracture or dislocation. The patient is also status post right total hip arthroplasty. A spinal stimulator is noted. XR/XR hip LT 1V IMPRESSION: Status post left total hip arthroplasty. Electronically signed by: Moose Cleveland MD 11/15/2024 02:52 PM EDT
--- NOTE | ~2024-11-13 | XR_ITS ---
EXAMINATION: XR HIP 1 VIEW LEFT, XR PELVIS 1-2 VIEWS HISTORY: M25.552 - Pain in left hip COMPARISON: Comparison is made with the prior examination dated 10/03/2024. FINDINGS: A single AP view of the pelvis and an additional view of the left hip are submitted. A left hip prosthesis is unchanged in appearance. There is no radiographic evidence of loosening. There is no fracture or dislocation. The patient is also status post right total hip arthroplasty. A spinal stimulator is noted. XR/XR pelvis 1-2V IMPRESSION: Status post left total hip arthroplasty. Electronically signed by: Moose Cleveland MD 11/15/2024 02:52 PM EDT
== END 2024-11-13 12:11 | disposition home or self-care (01) ==
LOC: HO.HOSX 12:10
PROVIDERS: Visit Provider Orthopaedic Surgery
DX: M25.552 Pain in left hip (principal); Z96.642 Presence of left artificial hip joint
CPT/HCPCS: 72170; 73501; 99212

== ENCOUNTER 2024-11-13 13:40 | Outpatient (AMB) | payer MEDICARE, MEDICAID, SELFPAY ==
--- NOTE | 2024-11-13 13:49 | MHC.OFFVIS ---
Intake Visit Reasons: 6WK PO: L EDUARDO w/NE 10/03/24 Intake Note: Ping is a 69 year old female who presents today for a post operative appointment about 6 weeks s/p Left EDUARDO 10/03/24. At her last visit it was noted that she was continuing home services as she does not have transportation. Allergies aripiprazole [From ABILIFY] Allergy (Intermediate, Verified 10/10/24 10:07) SHAKING bupropion [From WELLBUTRIN] Allergy (Intermediate, Verified 10/10/24 10:07) SHAKING, WEAKNESS atypical antipsychotics Allergy (Intermediate, Uncoded 10/03/24 06:44) SHAKING/FEET SWELLING HPI HPI 6WK PO: L EDUARDO w/NE 10/03/24: Details: 6 weeks post op without complaints. Walking comfortably. [facility] Medical History History of MRSA infection Arthritis GERD (gastroesophageal reflux disease) COVID-19 HTN, goal below 130/80 Personal history of nicotine dependence High cholesterol Anxiety and depression Hypertension, essential Surgical History History of right hip replacement S/P insertion of spinal cord stimulator H/O colonoscopy History of tonsillectomy History of ankle surgery History of removal of cyst Family History Father No problems noted. Mother No problems noted. Son Hypertension Sister Ovarian cancer Breast cancer Social History Household Members: Other Household Members Other:: 2 roommates Housing: Apartment Are you a primary customer care manager to a significant other at home: No Do you presently have visiting nurse or other home services: No Alcohol intake: former Patient Tobacco Use Status: Former Tobacco user Years Smoked: (onset 11yo, smoked for 30yrs at 1ppd, 30pyh - quit 2020 using vape e-Cigarette/Vaping Use: Currently Using service: No Current occupational status: retired Current occupational exposures/hazards: No Cognitive needs: No Hearing needs: No Vision needs: No Female Reproductive History Menstrual Age of Menarche: 11 Physical Exam Extrem Other: nl gait inc c/d/i no pain with hip ROM Results Reviewed Results Reviewed: I personally reviewed relevant radiographs. Bilateral EDUARDO in expected post operative position with no hardware complications or evidence of loosening Assessment & Plan Assessment & Plan (1) Status post total replacement of left hip: Code(s): Z96.642 - Presence of left artificial hip joint Category: Surgical Plan: Doing well status post left hip replacement. Continue activity as tolerated. May DC aspirin. Orders: Orders XR pelvis 1-2V Today M25.559 - Pain in unspecified hip XR hip LT 1V Today M25.552 - Pain in left hip Coding Level of Care Code Global (15167) Diagnoses Status post total replacement of left hip Z96.642
== END 2024-11-13 14:14 | disposition home or self-care (01) ==
LOC: HO.HOS 13:41
PROVIDERS: PCP Family Medicine; Visit Provider Orthopaedic Surgery
DX: Z96.642 Presence of left artificial hip joint (principal)
CPT/HCPCS: 99024

== ENCOUNTER → 2024-11-13 13:47 | Outpatient (BNV) | payer MEDICARE, MEDICAID, SELFPAY | PROVIDERS: Visit Provider Radiology Diagnostic Radiology | DX: M25.552 Pain in left hip (principal); Z96.642 Presence of left artificial hip joint | CPT/HCPCS: 72170; 73501 ==

== ENCOUNTER 2024-11-16 10:46 | Outpatient (AMB) | payer MEDICARE, MEDICAID, SELFPAY ==
--- NOTE | 2024-11-16 11:04 | MHC.PC.OV ---
Vital Signs 11/16/24 11:11 Height 5 ft 3 in Weight 139 lb 6 oz BMI 24.7 BP 128/62 Blood Pressure Location Lt brachial Position Sitting Respiration 16 Pulse 53 Pulse Source Pulse Oximeter Temp 97.9 F Temp Source Oral Pulse Oximetry (%) 100 Oxygen Delivery Method Room Air Intake Visit Reasons: f/u HLD, chronic conditions Allergies aripiprazole [From ABILIFY] Allergy (Intermediate, Verified 11/16/24 11:04) SHAKING bupropion [From WELLBUTRIN] Allergy (Intermediate, Verified 11/16/24 11:04) SHAKING, WEAKNESS atypical antipsychotics Allergy (Intermediate, Uncoded 10/03/24 06:44) SHAKING/FEET SWELLING Tobacco use date assessed: 09/06/24 Dental Screening Dental Screen Date: 09/06/24 HPI f/u HLD, chronic conditions HPI Details 69 y/o female presents to f/u HLD, chronic conditions. Blood pressure today 128/62, 53p. Labs drawn 10/04/24. Reviewed labs with pt. Ongoing anemia. Fasting glucose 124. Pt notes she did not think she had been fasting. Pt reports constipation. Had started an iron supplement not long ago. [facility] Medical History History of MRSA infection Arthritis GERD (gastroesophageal reflux disease) COVID-19 HTN, goal below 130/80 Personal history of nicotine dependence High cholesterol Anxiety and depression Hypertension, essential Surgical History History of right hip replacement S/P insertion of spinal cord stimulator H/O colonoscopy History of tonsillectomy History of ankle surgery History of removal of cyst Family History Father No problems noted. Mother No problems noted. Son Hypertension Sister Ovarian cancer Breast cancer Social History Household Members: Other Household Members Other:: 2 roommates Housing: Apartment Are you a primary resident caregiver to a significant other at home: No Do you presently have visiting nurse or other home services: No Alcohol intake: former Patient Tobacco Use Status: Former Tobacco user Years Smoked: (onset 11yo, smoked for 30yrs at 1ppd, 30pyh - quit 2020 using vape e-Cigarette/Vaping Use: Currently Using service: No Current occupational status: retired Current occupational exposures/hazards: No Cognitive needs: No Hearing needs: No Vision needs: No Female Reproductive History Menstrual Age of Menarche: 11 Questionnaire PHQ-9 Over the last 2 weeks, how often have you been bothered by any of the following problems? 1. Little interest or pleasure in doing things: not at all 2. Feeling down, depressed, or hopeless: not at all 3. Trouble falling or staying asleep, or sleeping too much: not at all 4. Feeling tired or having little energy: not at all 5. Poor appetite or overeating: not at all 6. Feeling bad about yourself - or that you are a failure or have let yourself or your family down: not at all 7. Trouble concentrating on things, such as reading the newspaper or watching television: not at all 8. Moving or speaking so slowly that other people could have noticed. Or the opposite - being so fidgety or restless that you have been moving around a lot more than usual: not at all 9. Thoughts that you would be better off or of hurting yourself in some way: not at all Total score: 0 Depression Screening Interpretation: Negative Depression Screening Done: Yes 99519 - PHQ-9 Billing: Yes Source: Developed by Drs. Moose Castillo, Christina Schmidt, Aubrey Min and colleagues, with an educational enzo from [employer] Thrive Questionnaire Date Thrive assessed: 11/16/24 I am a: Patient What is your living situation today?: I have a steady place to live Within the past 12 months, did the food you bought not last and you didn't have the money to get more?: I choose not to answer this question Within the past 12 months, did you worry whether your food would run out before you got money to buy more?: I choose not to answer this question Do you have trouble paying for medicines?: I choose not to answer this question Do you have trouble getting transportation to medical appointments?: I choose not to answer this question Do you have trouble paying your heating and electricity bill?: I choose not to answer this question Do you have trouble taking care of your child, family member or friend?: I choose not to answer this question Do you have trouble with day-to-day activities such as bathing, preparing meals, shopping, managing finances, etc.?: I choose not to answer this question Are you currently unemployed and looking for a job?: I choose not to answer this question Are you interested in more education?: I choose not to answer this question Please select the resources that you would like help with: None Currently or been in a relationship where the following occur: Made to feel afraid THRIVE Score: 1 BERNICE-7 AMB Questionnaire BERNICE-7 Date BERNICE - 7 assessed: 11/16/24 Feeling nervous, anxious, or on edge: 0 = Not at all Not being able to stop or control worryin = Not at all Worrying too much about different things: 0 = Not at all Trouble relaxin = Not at all Being so restless that it is hard to sit still: 0 = Not at all Becoming easily annoyed or irritable: 0 = Not at all Feeling afraid as if something awful might happen: 0 = Not at all Total BERNICE-7 score (0-4 normal; 5-9 mild; 10-14 moderate; 15-21 severe): 0 Source: Developed by Drs. Moose Castillo, Christina Schmidt, Aubrey Min and colleagues, with an educational enzo from [employer] BERNICE-7 Assessment Billing BERNICE-7 Assessment Tool: BERNICE-7 Assessment 54450 Review of Systems Const Denies chills, Denies fatigue, Denies fever(s), Denies headache(s) and Denies weakness ENT Denies dizziness and Denies headache(s) Card Denies dyspnea Resp Denies cough, Denies dyspnea, Denies wheezing and Denies other (shortness of breath) GI Reports constipation Musc Denies numbness and Denies tingling Neuro Denies dizziness, Denies headache(s), Denies numbness, Denies tingling and Denies weakness Psych Denies anxiety and Denies depression Endo Denies fatigue Aller/Immun Denies wheezing Physical exam (Primary Care) Vital Signs: Last Vital Signs Temp 97.9 F 11/16/24 11:11 Pulse 53 11/16/24 11:11 Resp 16 11/16/24 11:11 BP 128/62 11/16/24 11:11 Pulse Ox 100 11/16/24 11:11 Oxygen Delivery Method Room Air 11/16/24 11:11 BMI result Body Mass Index 24.7 Tobacco/Smoking Status: Tobacco use Status Tobacco use date assessed 09/06/24 11/16/24 11:04 Patient Tobacco Use Status Former Tobacco user 11/16/24 11:04 e-Cigarette/Vaping Use Currently Using 11/16/24 11:04 PHQ-9: PHQ-9 Score PHQ-9: Total score 0 11/16/24 11:32 Depression Screening Interpretation: Negative Thrive Assessment: Date of Thrive Assessment Date Thrive assessed 11/16/24 11/16/24 11:09 Currently or been in a relationship where the following occur: Made to feel afraid Const General: well developed; No acute distress Nutritional Appearance: well nourished Orientation/consciousness: patient oriented x3 HENMT Head: Yes normocephalic and Yes atraumatic Eyes General: appearance normal, both eyes and all related structures Pupils: Equal, round and reactive pupils present EOM: EOMs intact bilaterally Resp Effort & Inspection: normal respiratory effort Neuro General: patient oriented x3 and gait normal Cranial nerves: Yes Equal, round and reactive pupils present Psych Affect: normal affect Coding Level of Care Code Est Pt Level 4 (84574) Diagnoses Mild anemia D64.9 HTN, goal below 140/90 I10 Hyperlipidemia E78.5 Osteopenia M85.80 Constipation K59.00 Elevated fasting glucose R73.01 Hypocalcemia E83.51 Additional Codes BERNICE-7 Assessment Billing - BERNICE-7 Assessment Tool: BERNICE-7 Assessment 98631 ([id number]) PHQ-9 - 60407 - PHQ-9 Billing: Yes ([id number]) Assessment & Plan Assessment & Plan (1) Mild anemia: Code(s): D64.9 - Anemia, unspecified Category: Medical Plan: Ongoing?anemia?at?last?lab?draw and?had?decreased?further. However,?patient?has?had?hip?replacement?surgeries,?most?recently?6?weeks?ago. She?says?she?started?herself?on?an?iron?supplement?after?her?surgery. Will?recheck?CBC?and?iron?levels?with?next?blood?draw. (2) HTN, goal below 140/90: Code(s): I10 - Essential (primary) hypertension Category: Medical Plan: Blood?pressure?is?controlled.??Goal?is?less?than?140/90 Continue?current?medications (3) Hyperlipidemia: Code(s): E78.5 - Hyperlipidemia, unspecified Category: Medical Plan: LDL?cholesterol?is?at?goal?of?less?than?100 Continue?atorvastatin (4) Osteopenia: Code(s): M85.80 - Other specified disorders of bone density and structure, unspecified site Category: Medical Plan: Bone?density?test?showed?osteopenia She?also?has?low?calcium?and?has?not?had?vitamin-D?level?checked?in?quite?some?time. She?says?she?started?a?calcium?and?vitamin-D?supplement?around?the?time?of?her?bone?density?test Will?recheck?calcium?and?vitamin-D?with?next?blood?draw (5) Constipation: Code(s): K59.00 - Constipation, unspecified Category: Medical Plan: She?notices?some?constipation?and?had?started?an?iron?supplement?not?long?ago. She?will?try?taking?the?iron?supplement?5?times?per?week?rather?than?7?days?a?week. (6) Elevated fasting glucose: Code(s): R73.01 - Impaired fasting glucose Category: Medical Plan: Patient?says?she?does?not?think?she?was?fasting?for?this?lab?draw Will?recheck?fasting?blood?sugar?with?next?blood?draw?as?well?as?an?A1c?test (7) Hypocalcemia: Code(s): E83.51 - Hypocalcemia Category: Medical Plan: As?above,?she?is?now?on?a?calcium?supplement Will?recheck?calcium?level?as?well?as?vitamin-D Orders: Orders Comprehensive [place]. Panel Fast Today E83.51 - Hypocalcemia, Z00.00 - Encounter for general adult medical examination without abnormal findings Hemoglobin A1c Today R73.01 - Impaired fasting glucose IRON PROFILE Today D64.9 - Anemia, unspecified Vitamin D 25-OH Total Today E55.9 - Vitamin D deficiency, unspecified Complete Blood Count Auto Diff Today D64.9 - Anemia, unspecified, Z00.00 - Encounter for general adult medical examination without abnormal findings
[2024-11-16 11:11] VITALS: BP 128/62; PULSE 53; RESP 16; TEMP 36.6; O2SAT 100; BMI 24.7
== END 2024-11-16 11:44 | disposition home or self-care (01) ==
LOC: HO.HMCFM 10:46
PROVIDERS: PCP Family Medicine; Visit Provider Family Medicine
DX: D64.9 Anemia, unspecified (principal); I10 Essential (primary) hypertension; E78.5 Hyperlipidemia, unspecified; M85.80 Other specified disorders of bone density and structure, unspecified site; K59.00 Constipation, unspecified; R73.01 Impaired fasting glucose; E83.51 Hypocalcemia

== ENCOUNTER → 2024-11-16 10:46 | Outpatient (BNVA) | payer MEDICARE, MEDICAID, SELFPAY | PROVIDERS: PCP Family Medicine; Visit Provider Family Medicine | DX: D64.9 Anemia, unspecified (principal); I10 Essential (primary) hypertension; E78.5 Hyperlipidemia, unspecified; M85.80 Other specified disorders of bone density and structure, unspecified site; K59.00 Constipation, unspecified; R73.01 Impaired fasting glucose; E83.51 Hypocalcemia | CPT/HCPCS: 96127; 99212 ==

== ENCOUNTER 2025-05-16 08:07 | Outpatient (AMB) | payer MEDICARE, MEDICAID, SELFPAY ==
[2025-05-16 08:10] VITALS: BP 92/54; PULSE 70; O2SAT 96; BMI 23.9
--- NOTE | 2025-05-16 08:10 | MHC.OFFVIS ---
Vital Signs 05/16/25 08:10 Height 5 ft 3 in Weight 135 lb BMI 23.9 BP 92/54 L Blood Pressure Location Rt brachial Position Sitting Pulse 70 Pulse Source Pulse Oximeter Pulse Oximetry (%) 96 Oxygen Delivery Method Room Air Intake Visit Reasons: colo screening Intake Note: New pt for recall colo screening. CC; Pt denies any GI sx or concerns at this time. She believes her last colonoscopy was approximately 20 years ago but she cannot recall when or where it was done. 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 female with past medical history of osteopenia, left bundle-branch block, hyperlipidemia, hypertension, GERD, and anxiety, depression, nicotine dependence is here today for pre colonoscopy screening.? Patient was sent to us by her PCP.? Patient reports her last colonoscopy was a was 20 years ago. Patient reports she had a normal colonoscopy then.? Patient reports in the past s history of GERD, however she has not had any symptoms for quite some time. Not taking any PPI or H2 blockers. Moving her bowels without any issues. Denies family history of CRC.? Denies history of difficulty with sedation or anesthesia in the past.? Negative for history of sleep apnea.? Denies any history of cardiac, renal, pulmonary, or hepatic disease.?? No history of infectious? diseases like hepatitis A, B, C, HIV or tuberculosis.? Patient is not on any anticoagulation [facility] Medical History History of MRSA infection Arthritis GERD (gastroesophageal reflux disease) COVID-19 HTN, goal below 130/80 Personal history of nicotine dependence High cholesterol Anxiety and depression Hypertension, essential Surgical History History of right hip replacement S/P insertion of spinal cord stimulator H/O colonoscopy History of tonsillectomy History of ankle surgery History of removal of cyst Family History Father No problems noted. Mother No problems noted. Son Hypertension Sister Ovarian cancer Breast cancer Social History Household Members: Other Household Members Other:: 2 roommates Housing: Apartment Are you a primary primary care coordinator to a significant other at home: No Do you presently have visiting nurse or other home services: No Alcohol intake: former Patient Tobacco Use Status: Former Tobacco user Years Smoked: (onset 11yo, smoked for 30yrs at 1ppd, 30pyh - quit 2020 using vape e-Cigarette/Vaping Use: Currently Using service: No Current occupational status: retired Current occupational exposures/hazards: No Cognitive needs: No Hearing needs: No Vision needs: No Female Reproductive History Menstrual Age of Menarche: 11 Review of Systems Const Denies weight gain and Denies weight loss ENT Reports no additional complaints, Denies dysphagia and Denies odynophagia Card Reports no additional complaints Resp Reports no additional complaints GI Denies abdominal pain, Denies belching, Denies melena, Denies bloating, Denies change in bowel habits, Denies dysphagia, Denies excessive flatus, Denies dyspepsia, Denies heartburn, Denies diarrhea, Denies loose stools, Denies nausea, Denies odynophagia and Denies vomiting Musc Reports no additional complaints Neuro Reports no additional complaints Psych Reports no additional complaints Endo Reports no additional complaints Physical Exam Const General: healthy appearing, no acute distress and well developed Nutritional Appearance: well nourished Orientation/consciousness: patient oriented x3 Resp Effort & Inspection: normal respiratory effort, able to speak in complete sentences, no tracheal deviation and symmetric chest movement Auscultation: clear to auscultation bilaterally Cardio Rate: regular rate GI Inspection: Yes normal to inspection and No distended Palpation (GI): Soft to palpation, not firm, nontender and No hepatosplenomegaly present Auscultation: normal bowel sounds General: Yes no CVA tenderness Back/Spine/Pelvis Back: no CVA tenderness Skin General skin exam: elasticity normal, turgor normal and dry skin Neuro General: patient oriented x3 Psych Appearance: grossly normal Mental Status: mental status grossly normal Assessment & Plan Assessment & Plan (1) Screening for colon cancer: Code(s): Z12.11 - Encounter for screening for malignant neoplasm of colon Category: Medical Plan Patient denies any GI, cardiac or respiratory symptoms.? Denies any issues with anesthesia in the past.? Denies any history of sleep apnea.? No history infectious diseases in the past or present.? Not on any anticoagulation therapy.? No family or personal history of colon cancer or polyps.? Patient denies melena, hematochezia, unintentional weight loss or ribbon like stools.? Discussed at length the pre-procedure,? prep, diet & medications as well as what to expect prior, during and after the procedure.?? Stressed the importance of good bowel prep.? Recommended the use of Vaseline or Calmoseptine OTC & baby wipes with bowel movements to promote comfort.? ?Patient verbalizes understanding and agrees to plan of care.? She was given the opportunity to ask questions and all questions answered.? We will see her after the procedure.? Orders: Referrals GI Procedure Notification Z12.11 - Encounter for screening for malignant neoplasm of colon Medications: New bisacodyl (Dulcolax (bisacodyl)) take 4 tabs at noon the day before your colonoscopy 20 mg (4 x 5 mg) PO ONCE 4 tabs 0RF constipation 1 day Z12.11 - Encounter for screening for malignant neoplasm of colon polyethylene glycol 3350 (Miralax) As directed by gastroenterology department at [facility] 238 grams PO ONCE 238 grams 0RF Z12.11 - Encounter for screening for malignant neoplasm of colon Coding Level of Care Code New Pt Level 3 (58082) Diagnoses Screening for colon cancer Z12.11 Time Spent (min) 40 Comment 30 minutes spent with patient and additional 10 minutes spent reviewing her records
--- OUTSIDE RECORDS SUMMARY | 2025-05-16 08:20 | XMS_ITS | Encounter Summary ---
Author Organization [facility] Address [address] [place] [address] Phone Care Team Providers Care Box Estimator Name Role Phone Chapo Isaac MD Primary Care Provider [phone] Chapo Isaac MD Unavailable [phone] Unknown, Unknown Primary Care Provider Unavai Chapo Pennington MD Unavailable [phone] Bob Calderon MD Unavailable [phone] Angel Centeno MD Primary Care Provider Encounter Details Date Type Department Care Team (Late st Contact Info) Description 08/11/2018 Procedure Pass [facility], [address] [address] Social History Tobacco Use Types Packs/Day Years Used Date Smoking Tobacco: Every Day Cigarettes Smokeless Tobacco: Never Comments:5 cigarretes a day Alcohol Use Standard Drinks/Week Comments No 0 (1 standard drink = 0.6 oz pur e alcohol) Comments No Sex and Gender Information Value Date Recorded Sex Assigned at Not on file Legal Sex Female 4:53 PM EST Gender Identity Not on file Sexual Orientation Not on file Occupation Industry Job Start Date Job End Date Retired Not on file Not on file Not on file documented as of this encounter Plan of Treatment Not on file documented as of this encounter Visit Diagnoses Not on filedocumented in this encounter Additional Health Concerns Infection Onset Date Last Indicated Resolved Time MRSA Comment:Import to add expiration date of 10/04/2021 per Infection Control as part of historical infection status reconciliation 12/04/2010 12/04/2010 10/05/19 22 1:22 AM EDT documented as of this encounter Care Teams Box Estimator Relationship Specialty Start Date End Date Chapo Isaac MD [address] [place] [address], [address] [place] [id number] PCP - General 05/06/17 10/29/19 Unknown, Unknown, [address] [place] [address], [address] [place] [id number] PCP - General 10/31/19 06/01/23 Angel Centeno MD [address] [place] [address], [address] [id number] PCP - General Family Medicine 06/02/23 Chapo Isaac MD [address] [place] [address], [address] [phone] Insurance Assigned Provider 10/25/1910/28 Chapo Isaac MD [address] [place] [address], [address] [id number] Insurance Assigned Provider 10/25/1910/26 Bob Calderon MD [address] [place] [address], [address] [address] Insurance Assigned Provider 10/26/2007/26/21 documented as of this encounter Additional Source Comments The information contained in this document represents components of the legal health record. It is not the complete legal health record.[facility]
--- OUTSIDE RECORDS SUMMARY | 2025-05-16 08:20 | XMS_ITS | Clinical Summary ---
Author Organization [facility] Address [address] [place] [id number] Phone Care Team Providers Care Paper Grader Name Role Phone Angel Centeno MD Primary Care Provider Allergies Active Allergy Reactions Criticality Noted Date Comments Lisinopril Angioedema 01/12/2019, after 10 yrs on the medication Medications atorvastatin (LIPITOR) 40 MG tablet Take 1 tablet by mouth daily. Active Medication-Free Text multivitamin Active albuterol (PROVENTIL HFA) 90 mcg/actuation inhaler Inhalation as needed Active cloNIDine HCl (CATAPRES) 0.1 MG tablet Take 0.2 mg by mouth every 8 (eight) hours as needed (anxiety disorder). 4 Active lamoTRIgine (LAMICTAL) 25 MG tablet Take 200 mg by mouth daily. Active gabapentin (NEURONTIN) 300 MG capsule Take 1 capsule (300 mg total) by mouth 4 (four) times a day. 1 tablet Orally Four times a day 120 capsule 6 8 Active coenzyme Q10 200 mg capsule TAKE 1 CAPSULE (200 MG TOTAL) BY MOUTH DAILY. WITH A MEAL 30 capsule 1 9 Active methocarbamol (ROBAXIN) 750 MG tablet Take 1 tablet (750 mg total) by mouth 3 (three) times a day. 90 tablet 1 9 Active valsartan-hydroC HLOROthiazide (DIOVAN-HCT) 160-12.5 mg per tabletIndication s:Essential hypertension TAKE 1 TABLET BY MOUTH EVERY DAY 90 tablet 1 0 Active valsartan (DIOVAN) 320 MG tablet Take 320 mg by mouth daily. 4 Active omeprazole (PRILOSEC) 20 mg TbEC Take 20 mg by mouth daily. 4 Active hydrOXYzine (ATARAX) 25 MG tablet Take 25 mg by mouth nightly at bedtime. 4 Active aspirin 325 MG tablet Take 325 mg by mouth 2 (two) times a day. 1 tab oral twice daily for 42 days for DVT prevention/prohy laxis 4 Active gabapentin (NEURONTIN) 800 MG tablet Take 800 mg by mouth 3 (three) times a day. 4 Active cyclobenzaprine (FLEXERIL) 10 MG tablet Take 10 mg by mouth 3 (three) times a day as needed for muscle spasms. 4 Active citalopram (CELEXA) 20 MG tablet Take 20 mg by mouth daily. 4 Active celecoxib (CELEBREX) 200 MG capsule Take 200 mg by mouth daily as needed for pain (specific location in comments) (moderate pain 4-7/10 right hip). 4 Active AMLODIPINE BESYLATE, BULK, MISC Take 5 mg by mouth 2 (two) times a day. 4 Active acetaminophen (TYLENOL) 325 mg tablet Take 650 mg by mouth every 6 (six) hours as needed for pain (specific location in comments) (right hip). not to exceed 3,000mg in a 24 hours 4 Active Active Problems Problem Noted Date Diagnosed Date Coccygodynia 12/13/2018 Overview (12/13/2018): Extensive w/u, MRI shows R L5-S1 nerve root impingement that does not match her sx. Try OMT, she may get 2nd opinion from Dr Denson. Anxiety and depression 07/20/2017 Attention deficit hyperactiv ity disorder (ADHD), combined type 07/20/2017 Essential hypertension 07/20/2017 Non-ST elevation [place] (NSTEMI) 07/20/2017 Overview (07/20/2017): Non-ST elevation WV (NSTEMI) - I21.4 (Primary), Noted in 2015 on admission to hospital in [place] after polysubstance abuse. [facility] cardiology Dr. Andrade evaluation July 2016 notes review of [place] [facility] record showed EKG with flipped T waves and a troponin leak. Echocardiogram showed ejection fraction 55%, with apical hypokinesis. Unclear if planned nuclear stress test was ever done Psychophysiological insomnia 07/20/2017 Psychosis 07/20/2017 PTSD (post-traumatic stress disorder) 07/20/2017 Overview (01/12/2019): [facility] History Medical History Relation Comments Lung cancer Cousin Lung cancer Father Aneurysm Mother Breast cancer Sister Relation Status Comments Cousin (Age 50) Father (Age 64) Maternal Grandfather Maternal Grandmother Mother (Age 53) Paternal Grandfather Paternal Grandmother Sister Alive Social History Tobacco Use Types Packs/Day Years Used Date Smoking Tobacco: Every Day Cigarettes 0.1 25 Smokeless Tobacco: Never Alcohol Use Standard Drinks/Week Comments No 0 (1 standard drink = 0.6 oz pur e alcohol) Home Health Assessment: Transportation Answer Date Recorded Lack of Transportation (Medical) No 05/05/2024 Lack of Transportation (Non-Medical) No 05/05/2024 Patient Unable or Declines to Respond No 05/05/2024 Education Answer Date Recorded Are you interested in more education? Not on kathi e 11/15/2022 Are you concerned about learning? Not on file 11/15/2022 No 11/15/2022 No 11/15/2022 Digital Access Answer Date Recorded No 12/13/2022 No 12/13/2022 Reliable internet access at home? Not on file 12/13/2022 Device with a working camera? Not on file Comments No Sex and Gender Information Value Date Recorded Sex Assigned at Not on file Legal Sex Female 4:53 PM EST Gender Identity Not on file Sexual Orientation Not on file Occupation Industry Job Start Date Job End Date Retired Not on file Not on file Not on file Last Filed Vital Signs Vital Sign Reading Time Taken Comments Blood Pressure 156/88 05/05/2024 12:09 PM EDT Pulse 84 05/05/2024 12:09 PM EDT Temperature 36.2 C (97.2 F) 05/05/2024 12:09 PM EDT Respiratory Rate 16 05/05/2024 12:09 PM EDT Oxygen Saturation 99% 05/05/2024 12:09 PM EDT Inhaled Oxygen Concentration - - Weight 59.7 kg (131 lb 9.6 oz) 05/05/2019 1:53 P M EDT Shoes on Height 161.3 cm (5' 3.5 ) 05/05/2019 1:53 PM EDT Body Mass Index 22.94 05/05/2019 1:53 PM EDT Plan of Treatment Health Maintenance Due Date Last Done Comments DEPRESSION SCREENING 1967 SMOKING Hx and SMOKELESS TOBACCO SCREENING 1968 HEPATITIS C SCREENING 1973 PNEUMOCOCCAL VACCINES (50+ years) (1 of 2 - PCV) 1974 MAMMOGRAM 1995 COLOGUARD 2000 COLONOSCOPY 2000 COLORECTAL CANCER SCREENING 2000 FIT TEST 2000 FOBT 2000 SIGMOIDOSCOPY 2000 VIRTUAL COLONOSCOPY 2000 ZOSTER VACCINES (1 of 2) 2005 Adult Td,Tdap Booster 06/16/2015 06/16/2005 CREATININE LEVEL 06/16/2019 06/16/2018 POTASSIUM LEVEL 06/16/2019 06/16/2018 OSTEOPOROSIS SCREENING INITI AL (ONE-TIME) 2020 LIPID PANEL 10/28/2021 10/28/2016 BLOOD PRESSURE 11/03/2024 05/05/2024 INFLUENZA VACCINE (#1) 2025 0, 06/11/2020 COVID-19 VACCINE (2 - 2024-2 6 season) 2025 10/09/2020 RSV VACCINE (1 - 1-dose 75+ series) 2030 HEPATITIS A VACCINES Aged Out No long er eligible based on patient's age to complete this topic HIB VACCINES Aged Out No longer eligi ble based on patient's age to complete this topic MENINGOCOCCAL VACCINES (ACWY) Aged Out No longer eligible based on patient's age to complete this topic MENINGOCOCCAL VACCINES (B) Aged Out N o longer eligible based on patient's age to complete this topic Medical Devices Not on file Procedures Procedure Name Priority Date/Time Associated Diagnosis Comments BASIC METABOLIC PANEL Routine 06/16/2018 10:03 AM EST Blood tests prior to treatment or procedure from Last 3 Months or Most Recently Relevant to Health Maintenance Results * (ABNORMAL) Basic metabolic panel (06/16/2018 10:03 AM EST) SODIUM 139 133 - 146 mmol/L [facility] CHLORIDE 106 96 - 108 mmol/L [facility] POTASSIUM 3.8 3.3 - 5.1 mmol/L [facility] CO2 21 21 - 35 mmol/L [facility] BUN 18 6 - 19 mg/dL [facility] CREATININE 0.80 0.5 - 1.5 mg/dL [facility] GLUCOSE 106(H) 70 - 99 mg/dL [facility] CALCIUM 9.5 8.4 - 10.3 mg/dL [facility] EGFR 78 >59 mL/min/1.7 3m2 [facility] Comment:If patient is black, multiply result by 1.159. Estimated glomerular filtration rate calculated using the CKD-EPI equation. ANION GAP 16 10 - 20 mmol/L [facility] Blood 06/16/2018 10:0 3 AM EST 06/16/2018 10:07 AM EST Chapo Isaac MD LAB BLOOD ORDERABLES Final Resu lt [facility] [address] [place] [address] from Last 3 Months or Most Recently Relevant to Health Maintenance Insurance MEDICARE PART A & B [facility] MEDICARE PART A & B [facility] MEDICARE PART A & B [place] MEDIC[place] PART A & B [facility] MEDIC[facility] PART A & B [place] PART [place] & B [facility] MEDICARE PART A & [place] B [facility] Care Teams Paper Grader Relationship Specialty Start Date End Date Angel Centeno MD PCP - General Family Medicine 06/02/23 Additional Source Comments The information contained in this document represents components of the legal health record. It is not the complete legal health record.[facility]
--- OUTSIDE RECORDS SUMMARY | 2025-05-16 08:20 | XMS_ITS | Clinical Summary ---
Author Organization [facility] Address [address] [place] [address] Care Team Providers Care Labor Representative Name Role Phone Unavailable Primary Care Provider Unavailabl e Source Comments PLEASE NOTE, if this patient is a minor, it may be UNLAWFUL to discuss sensitive information that is contained in these records (such as FAMILY PLANNING, MENTAL HEALTH or SUBSTANCE ABUSE) with the minor patient's parent or other person without the patient's specific authorization.[facility] Allergies Active Allergy Reactions Criticality Noted Date Comments Bupropion 03/27/2025 Lisinopril 03/27/2025 Medications No known medications Active Problems No known active problems Encounters Date Type Department Care Team Description 03/27/2025 1:00 PM EDT Office Visit [facility] [address] [place] [address] Rosalind Olvera from Last 3 Months Social History Tobacco Use Types Packs/Day Years Used Date Smoking Tobacco: Never Assessed Comments Unknown Sex and Gender Information Value Date Recorded Sex Assigned at Not on file Legal Sex Female 7:01 AM PDT Gender Identity Not on file Sexual Orientation Not on file Last Filed Vital Signs Vital Sign Reading Time Taken Comments Blood Pressure 107/73 03/27/2025 1:06 PM EDT Pulse 62 03/27/2025 1:06 PM EDT Temperature - - Respiratory Rate - - Oxygen Saturation - - Inhaled Oxygen Concentration - - Weight - - Height - - Body Mass Index - - Plan of Treatment Health Maintenance Due Date Last Done Comments Dental FMX/Pano 1955 Dental Perio Charting 1955 Dental Prophy 1955 Hepatitis C Screening 1955 Lipid Screening 1955 Tobacco Screening 1955 Imm-DTaP/Tdap/Td (1 - Tdap) 1974 Breast Cancer Screening (Mammogram) 1995 CT Colonography 2000 Colonoscopy 2000 Colorectal Cancer Screening 2000 FIT/gFOBT 2000 Fecal DNA 2000 Flexible Sigmoidoscopy 2000 Imm-Pneumococcal 50+ (1 of 1 - PCV) 2005 Imm-Zoster, Recombinant (1 of 2) 2005 Bone Density Screening 2020 Falls Prevention 2020 Diabetes Screening 06/16/2021 06/16/2018 Alcohol and Drug Screen 07/19/2024 Depression Annual Screen 07/19/2024 [id number] ( season) 2025 Imm-Influenza (#1) 2025 Hypertension Screening (#1) 03/27/2026 Dental Examination 03/29/2026 03/27/2025 Procedures Procedure Name Priority Date/Time Associated Diagnosis Comments INTRAORAL - PERIAPICAL EACH ADD RADIOGRAPH IMAGE Routine 03/27/2025 1:00 PM EDT Retained tooth root Need for antibiotic prophylaxis for dental procedure INTRAORAL - PERIAPICAL EACH ADD RADIOGRAPH IMAGE Routine 03/27/2025 1:00 PM EDT Retained tooth root Need for antibiotic prophylaxis for dental procedure INTRAORAL - PERIAPICAL EACH ADD RADIOGRAPH IMAGE Routine 03/27/2025 1:00 PM EDT Retained tooth root Need for antibiotic prophylaxis for dental procedure INTRAORAL - PERIAPICAL FIRST RADIOGRAPHIC IMAGE Routine 03/27/2025 1:00 PM EDT Retained tooth root Need for antibiotic prophylaxis for dental procedure DENTAL CASE MANAGEMENT - MOTIVATIONAL INTV Routine 03/27/2025 1:00 PM EDT Retained tooth root Need for antibiotic prophylaxis for dental procedure COMP ORAL EVALUATION - NEW/ESTABLISHED PATIENT Routine 03/27/2025 1:00 PM EDT Retained tooth root Need for antibiotic prophylaxis for dental procedure CARIES RISK ASSESSMENT & DOC FINDING HIGH RISK Routine 03/27/2025 1:00 PM EDT Retained tooth root Need for antibiotic prophylaxis for dental procedure NUTRITIONAL COUNSELING CONTROL OF DENTAL DISEASE Routine 03/27/2025 1:00 PM EDT Retained tooth root Need for antibiotic prophylaxis for dental procedure ORAL HYGIENE INSTRUCTIONS Routine 2024 1:00 PM EDT Retained tooth root Need for antibiotic prophylaxis for dental procedure ORAL CANCER SCREENING Routine 03/27/2025 1:00 PM EDT Retained tooth root Need for antibiotic prophylaxis for dental procedure CASE PRESENTATION SUBS DTL & EXTENSIVE TX PLN Routine 03/27/2025 1:00 PM EDT Retained tooth root Need for antibiotic prophylaxis for dental procedure 23 CROWN - PORCELAIN FUSED PREDOMINANTLY BASE METAL Routine 03/27/2025 12:00 AM EDT 22 CROWN - PORCEL[place] FUSED PREDOMINANTLY BASE METAL Routine 03/27/2025 12:00 AM EDT 18 CROWN - PORCELAIN FUSED PREDOMINANTLY BASE METAL Routine 03/27/2025 12:00 AM EDT 25 ROOT CANAL - WISDOM (NO BILLABLE) Routine 03/27/2025 12:00 AM EDT 23 ROOT CANAL - WISDOM (NO BILLABLE) Routine 03/27/2025 12:00 AM EDT 22 ROOT CANAL - WISDOM (NO BILLABLE) Routine 03/27/2025 12:00 AM EDT 20 ROOT CANAL - WISDOM (NO BILLABLE) Routine 03/27/2025 12:00 AM EDT 18 ROOT CANAL - WISDOM (NO BILLABLE) Routine 03/27/2025 12:00 AM EDT 23 ROOT CANAL - WISDOM (NO BILLABLE) Routine 03/27/2025 12:00 AM EDT 22 ROOT CANAL - WISDOM (NO BILLABLE) Routine 03/27/2025 12:00 AM EDT 18 ROOT CANAL - WISDOM (NO BILLABLE) Routine 03/27/2025 12:00 AM EDT from Last 3 Months Insurance [place]
== END 2025-05-16 08:48 | disposition home or self-care (01) ==
LOC: HO.HGI 08:08
PROVIDERS: PCP Family Medicine; Visit Provider Nurse Practitioner Family
DX: Z12.11 Encounter for screening for malignant neoplasm of colon (principal)
CPT/HCPCS: 99024

== ENCOUNTER → 2025-05-16 08:07 | Outpatient (BNVA) | payer MEDICARE, MEDICAID, SELFPAY | PROVIDERS: PCP Family Medicine; Visit Provider Nurse Practitioner Family | DX: Z12.11 Encounter for screening for malignant neoplasm of colon (principal) | CPT/HCPCS: 99212 ==